=== PATIENT | female | born 1950 | race Caucasian/White ===

== ENCOUNTER 2016-05-10 13:53 | Inpatient (IN) | payer OTHER ==
[~2016-05-10] VITALS: Ht 162.6 cm; Wt 85.5 kg
--- NOTE | 2016-05-10 14:14 | ED GENERAL ADULT ---
History of Present Illness General Chief Complaint: Neuro Symptoms/ Deficit Stated Complaint: BIBA FOR ?STROKE ALERT Source: patient Exam Limitations: no limitations Vital Signs & Intake/Output Vital Signs & Intake/Output Vital Signs Date Time Temp Pulse Resp B/P Pulse O2 O2 Flow FiO2 Ox Delivery Rate 05/10 1747 97.3 95 18 127/72 95 Nasal 2.0L Cannula 05/10 1543 98.7 97 20 114/62 96 Nasal 2.0L Cannula 05/10 1354 98.1 108 18 136/87 92 Nasal 2.0L Cannula Allergies Coded Allergies: aspirin (RASH ALL OVER, RINGING IN THE EARS 05/10/16) erythromycin base (RASH ALL OVER 05/10/16) melon (HANDS SWELL, ITCH, THROAT ITCHES 05/10/16) Reconcile Medications Albuterol Sulfate (Proair Hfa) 90 MCG HFA.AER.AD 2 PUF INH PRN ASTHMA ( Reported) Cholecalciferol (Vitamin D3) (Vitamin D) 2,000 UNIT CAPSULE 1 CAP PO DAILY SUPPLEMENT (Reported) Citalopram Hydrobromide (Citalopram HBr) 20 MG TABLET 1 TAB PO QPM MENTAL HEALTH (Reported) Cyanocobalamin (Vitamin B-12) 1,000 MCG TABLET 1 TAB PO DAILY SUPPLEMENT ( Reported) Ezetimibe (Zetia) 10 MG TABLET 1 TAB PO QAM CHOLESTEROL (Reported) Losartan Potassium 50 MG TABLET 1 TAB PO QAM HTN (Reported) Metformin HCl 1,000 MG TABLET 1 TAB PO BID DM (Reported) Montelukast Sodium 10 MG TABLET 1 TAB PO DAILY ASTHMA/ALLERGIES (Reported) Multivitamin (Multi-Day Vitamins) 1 EACH TABLET 1 TAB PO DAILY SUPPLEMENT ( Reported) Pantoprazole Sodium 40 MG TABLET.DR 1 TAB PO DAILY AC GI (Reported) Triage Note: BROUGHT IN BY AMBULANCE WITH DIFFICULTY SPEAKING WHILE AT WORK APPROXIMATELY 45 MIN AGO. PT'S SYMPTOMS ARE IMPROVING. Triage Nurses Notes Reviewed? yes Onset: Abrupt Duration: minute(s): Timing: single episode today HPI: 05/10/16 2;10 PM 65-year-old female presents to the emergency department for sudden onset of altered mental status. The patient states that she had lunch earlier today, approximately 45 minutes prior to arrival she had a sudden onset of difficulty speaking and confusion. She says gradually over the last 20 minutes her symptoms have resolved. The onset of the symptoms was abrupt, the duration was a proximally 45 minutes prior to arrival, the severity is significant as her symptoms required to come to the emergency department by ambulance. Now in the emergency department she is awake alert and oriented 3. 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 A cervical fusion. On physical examination she is awake alert oriented 3. She does have some slight right FACIAL weakness. 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 The onset of the symptoms were abrupt, the duration was 45 minutes prior to arrival, the severity was significant as her symptoms required her to come to the emergency department for care. Past History Travel History Traveled to [facility] past 21 day No Medical History Any Pertinent Medical History? see below for history Neurological: ELY'S syndrome Musculoskeletal: CERVICAL DISEASE Endocrine: diabetes Influenza Vaccine: 12/26/07 Surgical History Surgical History: CERVICAL FUSION Psychosocial History Who do you live with Spouse What is your primary language Telugu Family History Hx Contributory? No Review of Systems Review of Systems Constitutional: Denies: fever. EENTM: Denies: visual changes. Respiratory: Denies: short of breath. Cardiovascular: Denies: chest pain. GI: Denies: abdominal pain. Genitourinary: Reports: no symptoms. Musculoskeletal: Reports: no symptoms. Skin: Reports: no symptoms. Neurological/Psychological: Reports: see HPI. Hematologic/Endocrine: Reports: see HPI. Physical Exam Physical Exam General Appearance: alert, awake, anxious, mild distress Head: atraumatic, normal appearance Eyes: Right: other (DEVIATES MEDIALLY-CHRONIC). Ears, Nose, Throat: normal pharynx Neck: normal inspection, supple, full range of motion Respiratory: normal breath sounds, chest non-tender, no respiratory distress Cardiovascular: regular rate/rhythm Peripheral Pulses: 4+ radial (R), 4+ radial (L) Gastrointestinal: soft, non-tender Back: normal range of motion Extremities: no edema Neurologic/Psych: awake, alert, oriented x 3, SLIGHT RIGHT FACIAL DROOP, RIGHT EYE DEVIATES MEDIALLY. Skin: intact, normal color, warm/dry Core Measures ACS in differential dx? No CVA/TIA Diagnosis: Yes NIH Stroke Scale: Total 3 Dt/Tm Last Known Well: Yes Date Last Known Well: 05/10/16 Neurological S/S of CVA: Difficulty Speaking Symptom start date: 05/10/16 Reason tPA not ordered: Medication Refused (PATIENT SYMPTOMS RESOLVED) Severe Sepsis Present: No Septic Shock Present: No Progress Differential Diagnoses I considered the following diagnoses in my evaluation of the patient: CVA, TIA, carotid dissection, hypoglycemia Plan of Care: Orders Procedure Date/time Status Heart Healthy Diet 05/11 B Active LIPID PANEL 05/11 0600 Active CBC WITHOUT DIFFERENTIAL 05/11 0600 Active BASIC ELECTROLYTES PLUS BUN&CR 05/11 0600 Active Heart Healthy Diet 05/10 D Complete Vital Signs 05/10 2040 Active Teach/Educate 05/10 2039 Active Nutritional Intake, Monitor 05/10 2039 Active Isolation 05/10 2039 Active Intake & Output 05/10 2039 Active Patient Care Conference 05/10 2039 Active Activity/Ambulation 05/10 204 Active Pathway - chart 05/10 1727 Active Patient Data 05/10 1556 Active Intake & Output 05/10 1544 Complete EKG 05/10 1531 Active Admit to inpatient 05/10 1527 Active Vital Signs 05/10 1527 Active Code Status 05/10 1527 Active NIH Stroke Scale 05/10 1441 Active Weight 05/10 1439 Active TROPONIN LEVEL 05/10 1408 Complete COMPREHENSIVE METABOLIC PANEL 05/10 1408 Complete CBC WITHOUT DIFFERENTIAL 05/10 1408 Complete AY-[id number] DOPPLER 05/10 UNK Active SWALLOW EVALUATION 05/10 UNK Active PT Evaluate & Treat 05/10 UNK Active House Staff 05/10 UNK Active Occupational Tx Eval & Treat 05/10 UNK Active VTE Mechanical Prophylaxis 05/10 UNK Active Ismael Coma Scale 05/10 UNK Active FingerStick- Glucose 05/10 UNK Active MRI-HEAD W/O ELANA 05/10 UNK Active ECHOCARDIOGRAM 05/10 UNK Active Current Medications Sig/Allan Start time Last Medication Dose Stop Time Status Admin Atorvastatin Calcium 40 MG 1700 05/11 1700 AC (Lipitor) Albuterol Sulfate 2 PUF DAILY 05/11 1000 AC (Ventolin) Cholecalciferol 1,000 IU DAILY 05/11 1000 AC (Vitamin D) Cyanocobalamin 1,000 MCG DAILY 05/11 1000 AC (Vitamin B12) Enoxaparin Sodium 40 MG DAILY 05/11 1000 CAN (Lovenox) Omeprazole 40 MG DAILY AC 05/11 0700 AC (Prilosec) Insulin Human Regular 0 TIDAC/HS 05/10 2100 AC (Novolin R Inj) Laboratory Tests 05/10/16 1443: Anion Gap 18 H, Estimated GFR 22 L, BUN/Creatinine Ratio 15.9, Glucose 138 H, Calcium 9.9, Total Bilirubin 0.4, AST 36, ALT 44, Alkaline Phosphatase 83, Troponin I < 0.01, Total Protein 7.4, Albumin 4.3, Globulin 3.1, Albumin/ Globulin Ratio 1.4, CBC w Diff NO MAN DIFF REQ, RBC 4.16 L, MCV 88.1, MCH 29.6, RDW 13.8, MPV 8.5, Gran % 48.8, Lymphocytes % 33.6, Monocytes % 11.1 H, Eosinophils % 5.3 H, Basophils % 1.2, Absolute Granulocytes 3.5, Absolute Lymphocytes 2.4, Absolute Monocytes 0.8 H, Absolute Eosinophils 0.4, Absolute Basophils 0.1, PUBS MCHC 33.6 Initial ED EKG: NSR, nonspecific ST T wave chg Departure Departure Disposition: STILL A PATIENT Condition: Stable Clinical Impression Primary Impression: TIA (transient ischemic attack) Referrals: LAYA WILD MD (PCP/Family) Departure Forms: Customer Survey General Discharge Information Comments Head CT negative PATIENT: SALAS CHEN PRESENT AGE: 65 PATIENT ACCOUNT NO: [id number] : 49 LOCATION: [facility] ORDERING PHYSICIAN: LATASHA ALBRECHT DO SERVICE DATE: 05/10/16 EXAM TYPE: CAT - CT HEAD WO IV CONTRAST EXAMINATION: CT HEAD WITHOUT CONTRAST CLINICAL INFORMATION: TIA versus CVA. COMPARISON: None TECHNIQUE: Contiguous axial imaging was performed from the skull base to vertex without intravenous administration of contrast. DLP: 601 mGy-cm FINDINGS: There is no evidence of acute intracranial hemorrhage or territorial infarction. No abnormal mass effect or midline shift is seen. Gerber to white matter differentiation is well preserved. No extra-axial fluid collections are identified. The ventricles are normal in size. There is moderate atherosclerotic calcification of the distal internal carotid arteries. There is mild decrease in periventricular deep white matter attenuation consistent with mild small vessel ischemic changes. The osseous structures and soft tissues are normal. The mastoid air cells and visualized portions of the paranasal sinuses are well aerated. IMPRESSION: Mild small vessel ischemic changes without evidence of an acute intracranial pathology. DICTATED BY: TERRANCE SCOTT MD DATE/TIME DICTATED:05/10/161440 TAX ACCOUNTANT:JOYCELYN DATE/TIME TRANSCRIBED:05/10/161440 CONFIDENTIAL, DO NOT COPY WITHOUT APPROPRIATE AUTHORIZATION. <Electronically signed in Other Vendor System> SIGNED BY: TERRANCE SCOTT MD 1450 Upon reevaluation the patient was essentially back to baseline. She had no aphasia. Speaking normally. No weakness. She still did have slight right facial droop. It is questionable whether this is no. The risks and benefits were reviewed for TPA with the patient. The patient and family understood the risks. The patient declined treatment, based on the fact that her deficit is essentially resolved. She will be admitted to the telemetry unit. Admission Note Spoke With: KELLIE PEOPLES MD Documentation of Exam: Documentation of any treatments & extenuating circumstances including Concerns Regarding Discharge (functional status, medication knowledge or non-compliance, living conditions, etc.) that warrant an admission rather than observation: [The patient needs admission for telemetry monitoring, neuro checks every 6 hours, neurology consultation-I spoke with Dr. Perez agrees with plan and will see patient,] Critical Care Note Critical Care Note Critical Care Time: 30-74 min Comments: 05/10/16 The patient had initially had inability to speak followed by mild expressive aphasia, now all her symptoms have essentially resolved. She is speaking in full sentences. She has no dysarthria positive gag reflex she has a history of the right eye deviation. It is questionable whether her right facial droop is old or new. I discussed the risks of TPA with the patient and the family. They of the opinion that because her symptoms have resolved almost entirely that they are deferring TPA as there is a risk of major bleeding. I agree with the patient and family's decision. Shared decision-making was utilized in the care of this patient. She is being admitted to the telemetry service.
--- NOTE | 2016-05-10 14:39 | NUR ---
PT SEEN BY DR ALBRECHT ON ARRIVAL, DR ALBRECHT DETERMINED PT IS NOT A STROKE ALERT DUE TO SYMPTOMS RESOLVING. PT TO/FROM CT ON STRETCHER, ALERT AND ORIENTED, SPEAKING APPROPRIATELY IN SHORT PHRASES, ABLE TO STAND AND WALK TO/FROM CT TABLE INDEPENDENTLY.
--- NOTE | 2016-05-10 14:46 | NUR ---
LABS DRAWN AND SENT
--- NOTE | 2016-05-10 14:50 | CT SCAN REPORT ---
EXAMINATION: CT HEAD WITHOUT CONTRAST CLINICAL INFORMATION: TIA versus CVA. COMPARISON: None TECHNIQUE: Contiguous axial imaging was performed from the skull base to vertex without intravenous administration of contrast. DLP: 601 mGy-cm FINDINGS: There is no evidence of acute intracranial hemorrhage or territorial infarction. No abnormal mass effect or midline shift is seen. Gerber to white matter differentiation is well preserved. No extra-axial fluid collections are identified. The ventricles are normal in size. There is moderate atherosclerotic calcification of the distal internal carotid arteries. There is mild decrease in periventricular deep white matter attenuation consistent with mild small vessel ischemic changes. The osseous structures and soft tissues are normal. The mastoid air cells and visualized portions of the paranasal sinuses are well aerated. IMPRESSION: Mild small vessel ischemic changes without evidence of an acute intracranial pathology.
[2016-05-10 14:51] LABS: ABSOLUTE BASOPHIL COUNT 0.1 /CUMM (0.0-0.2); ABSOLUTE EOSINOPHIL COUNT 0.4 /CUMM (0.0-0.7); ABSOLUTE GRANULOCYTE CT 3.5 /CUMM (1.4-6.5); ABSOLUTE LYMPH COUNT 2.4 /CUMM (1.2-3.4); ABSOLUTE MONOCYTE COUNT 0.8 /CUMM (0.10-0.60); BASOPHIL % 1.2 % (0.0-2.0); EOSINOPHIL % 5.3 % (0-5); GRANULOCYTE % 48.8 % (42.2-75.2); HEMATOCRIT 36.6 % (37-47); MEAN CORPUSCULAR HGB 29.6 PG (27.0-31.0); MEAN CORPUSCULAR HGB CONC 33.6 G/DL (33.0-37.0); MEAN CORPUSCULAR VOLUME 88.1 FL (81.0-99.0); MEAN PLATELET VOLUME 8.5 FL (7.4-10.4); PLATELET COUNT 311 /CUMM (130-400); RBC DISTRIBUTION WIDTH 13.8 % (11.5-14.5); RED BLOOD CELL CT 4.16 /CUMM (4.20-5.40); WHITE BLOOD CELL COUNT 7.2 /CUMM (4.8-10.8)
--- NOTE | 2016-05-10 14:54 | RADIOLOGY REPORT ---
EXAMINATION: XR PORTABLE CHEST CLINICAL INFORMATION: Altered mental status. COMPARISON: Chest x-ray 06/20/2012 TECHNIQUE: Portable AP view of the chest was obtained. 2:10 PM FINDINGS: Inspiratory effort is low. No significant abnormality is noted involving the heart, lungs, mediastinum, bony thorax or soft tissues. Orthopedic plate and screw at lower cervical spine IMPRESSION: No acute abnormality of the chest.
--- NOTE | 2016-05-10 15:01 | NUR ---
DR ALBRECHT AT BEDSIDE TO DISCUSS RESULTS/PLAN.
--- NOTE | 2016-05-10 15:14 | NUR ---
PER DR ALBRECHT PT'S SYMPTOMS ARE RESOLVING AND PT WILL NOT RECIEVE TPA AT THIS TIME.
--- NOTE | 2016-05-10 15:43 | NUR ---
PT MEDICATED PER EMAR--DR ALBRECHT REPORTS HE DID A BEDSIDE SWALLOW EVAL WHICH THE PT PASSED. PT DENIES ANY COMPLAINTS.
--- NOTE | 2016-05-10 15:45 | NUR ---
ATTENDING AT BEDSIDE
[2016-05-10] MEDS ORDERED: ZETIA10 M1 PO (15:59)
[2016-05-10] MEDS ORDERED: PROAIR HFA8.5 GM INH (16:00)
[2016-05-10] MEDS ORDERED: CITALOPRAM HBR20 MG PO (16:00)
[2016-05-10] MEDS ORDERED: LOSARTAN POTASS50 M1 PO (16:00)
[2016-05-10] MEDS ORDERED: MONTELUKAST SOD10 M1 PO (16:01)
[2016-05-10] MEDS ORDERED: METFORMIN HCL1000 M1 PO (16:01)
[2016-05-10] MEDS ORDERED: PANTOPRAZOLE SO40 M1 PO (16:02)
[2016-05-10] MEDS ORDERED: MULTI-DAY VITA1 EACH PO (16:03)
[2016-05-10] MEDS ORDERED: VITAMIN D2000 UNIT PO (16:03)
[2016-05-10] MEDS ORDERED: VITAMIN B-121000 MC3 PO (16:03)
--- NOTE | 2016-05-10 16:18 | Admission Certification ---
Admission Certification Certification Statement - As attending physician, I certify that at the time of - admission, based on clinical presentation, severity of - symptoms, need for further diagnostic testing and - therapeutic interventions, and risk of adverse outcomes - without in-hospital treatment, in my clinical assessment, - this patient requires an acute hospital stay for a minimum - of two nights or longer. I have also considered psychsocial - factors such as support system, advanced age, financial - issues, cognitive issues, and failed out-patient treatments, - past re-admission history, safety of patient, and lack of - compliance as applicable. Specific rationale supporting this admission is: Acute aphasia
--- NOTE | 2016-05-10 16:32 | PN- Att Addend ---
Attending Addendum Attending Brief Note 65F PMH HTN, HLD, T2DM, NSAID-induced CKD stage IIIB, recent cervical spinal fusion surgery with resulting right sided Jam's syndrome presenting with acute onset of aphasia. Patient was at work when she suddenly found that she could not speak. She knew what she wanted to say but could not get the words out. She also was typing at the time and could not type. She denies blurry vision, headache, confusion, extremity weakness, or balance or sensation problems. Aphasia lasted an hour and has completely resolved. Family history of stroke in her mother at age 50. Has allergy to ASA. Was offered tPA by ED but refused due to risk of bleed. Given Dipyrimadole in ED. Currently asymptomatic. 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 1. TIA 2. Aphasia 3. Jam's syndrome 4. T2DM 5. Hyperlipidemia 6. Essential hypertension Plan - Admit to telemetry - ASA allergic, so will start Plavix 75mg daily - Passed bedside swallow evaluation - Start Lipitor 40mg. Has a history of myalgia after taking Zocor, will monitor for symptoms - Neurology consult - MRI without contrast of the head - Carotid doppler - Echocardiogram - PT/OT - Continue home medications - Goal BP <140/90 - ALPS for DVT PPx
--- NOTE | 2016-05-10 16:32 | NUR ---
PT REPORTS SYMPTOMS ARE ESSENTIALLY RESOLVED AND DENIES ANY NEW OR WORSENING COMPLAINTS. PT IS ALERT, LAUGHING AND TALKING WITH FAMILY, AWAITING BED ASSIGNMENT.
--- NOTE | 2016-05-10 16:32 | History & Physical ---
VANESA BHANDARI MD 05/10/16 8551: General Information and HPI MD Statement: I have seen and personally examined SALAS CHEN and documented this H&P. The patient is a 65 year old F who presented with a patient stated chief complaint of [garbled speech]. Source of Information: patient Exam Limitations: no limitations History of Present Illness: 65-year-old female with PMH of HTN,HLD,right sided Jam due to surgical procedure, NSAID induced kidney injury, was brought in by ambulance for stroke alert. She was in her normal state of health up until around 1pm today when she came back to work from lunch. She had difficulty articulating her speech and what she said "did not make sense". 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 The pharmacist she was talking to suspected that she was having a stroke because she was not responding to her questions. She also had problem typing and thought the computer/internet was not working as she could not log on. She was not typing what she intended. Ambulance was called and she was brought to the ED. Her symptoms resolved after about one hour since the onset. As she is allergic to aspirin, aspirin was not given. 1 time 25 mg persantine was given instead. Pt refused tpa due to bleeding risk. Pt was told by Dr. Cat to not have any contrast given her kidney functions. She was taking a lot of NSAIDs due to neck pain, and followed up with Dr. Cat for Cr of 1.7. She has since had disc surgery to stabilize C4-C7. Allergies/Medications Allergies: Coded Allergies: aspirin (RASH ALL OVER, RINGING IN THE EARS 05/10/16) erythromycin base (RASH ALL OVER 05/10/16) melon (HANDS SWELL, ITCH, THROAT ITCHES 05/10/16) Home Med list Albuterol Sulfate (Proair Hfa) 90 MCG HFA.AER.AD 2 PUF INH PRN ASTHMA ( Reported) Cholecalciferol (Vitamin D3) (Vitamin D) 2,000 UNIT CAPSULE 1 CAP PO DAILY SUPPLEMENT (Reported) Citalopram Hydrobromide (Citalopram HBr) 20 MG TABLET 1 TAB PO QPM MENTAL HEALTH (Reported) Cyanocobalamin (Vitamin B-12) 1,000 MCG TABLET 1 TAB PO DAILY SUPPLEMENT ( Reported) Ezetimibe (Zetia) 10 MG TABLET 1 TAB PO QAM CHOLESTEROL (Reported) Losartan Potassium 50 MG TABLET 1 TAB PO QAM HTN (Reported) Metformin HCl 1,000 MG TABLET 1 TAB PO BID DM (Reported) Montelukast Sodium 10 MG TABLET 1 TAB PO DAILY ASTHMA/ALLERGIES (Reported) Multivitamin (Multi-Day Vitamins) 1 EACH TABLET 1 TAB PO DAILY SUPPLEMENT ( Reported) Pantoprazole Sodium 40 MG TABLET.DR 1 TAB PO DAILY AC GI (Reported) Past History Travel History Traveled to [place] past 21 day No Medical History Neurological: NONE EENT: NONE Cardiovascular: hypertension, hyperlipidemia Respiratory: asthma Gastrointestinal: NONE Hepatic: NONE Renal: chronic kidney disease Musculoskeletal: fracture Psychiatric: NONE Endocrine: diabetes Blood Disorders: NONE Cancer(s): NONE Influenza Vaccine: 12/26/07 Surgical History Surgical History: unobtainable Past Family/Social History Family History Relations & Conditions if any MOTHER FH: stroke, Onset: 50-60. Psychosocial History Where do you live? Home Primary Language: German Functional Ability ADLs Independent: dressing, eating, toileting, bathing. Ambulation: independent IADLs Independent: shopping, housework, finances, food prep, telephone, transportation , medication admin. 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 EENTM: Denies: visual changes. Cardiovascular: Denies: chest pain, palpitations. Respiratory: Denies: cough, short of breath. GI: Denies: abdominal pain, bloating, constipation, diarrhea. Genitourinary: Denies: dysuria. Neurological/Psychological: Denies: numbness, paresthesia, tingling. Exam & Diagnostic Data Last 24 Hrs of Vital Signs/I&O Vital Signs Date Time Temp Pulse Resp B/P Pulse O2 O2 Flow FiO2 Ox Delivery Rate 05/10 1543 98.7 97 20 114/62 96 Nasal 2.0L Cannula 05/10 1354 98.1 108 18 136/87 92 Nasal 2.0L Cannula Intake & Output 05/10 1600 05/10 0800 05/10 0000 Intake Total 15 Output Total Balance 15 Intake, Oral 15 Patient 83.7 kg Weight Physical Exam General Appearance Alert, Oriented X3, Cooperative, No Acute Distress Skin No Significant Lesion HEENT Atraumatic, EOMI, right pupil constricted and nonreactive Neck Supple, +2 Carotid Pulse wo Bruit, No LAD Cardiovascular Normal S1, Normal S2, No Murmurs, Gallops, Rubs, tachycardic Lungs Clear to Auscultation, Normal Air Movement Abdomen Normal Bowel Sounds, Soft, No Tenderness Neurological Normal Speech, Strength at 5/5 X4 Ext, Normal Tone, Sensation Intact, Cranial Nerves 3-12 NL, Reflexes 2+ Extremities No Cyanosis, No Edema, Normal Pulses, No Tenderness/Swelling Vascular Normal Pulses, Pulses Symmetrical Last 24 Hrs of Labs/Mik: Laboratory Tests 05/10/16 1443: Anion Gap 18 H, Estimated GFR 22 L, BUN/Creatinine Ratio 15.9, Glucose 138 H, Calcium 9.9, Total Bilirubin 0.4, AST 36, ALT 44, Alkaline Phosphatase 83, Troponin I < 0.01, Total Protein 7.4, Albumin 4.3, Globulin 3.1, Albumin/ Globulin Ratio 1.4, CBC w Diff NO MAN DIFF REQ, RBC 4.16 L, MCV 88.1, MCH 29.6, RDW 13.8, MPV 8.5, Gran % 48.8, Lymphocytes % 33.6, Monocytes % 11.1 H, Eosinophils % 5.3 H, Basophils % 1.2, Absolute Granulocytes 3.5, Absolute Lymphocytes 2.4, Absolute Monocytes 0.8 H, Absolute Eosinophils 0.4, Absolute Basophils 0.1, PUBS MCHC 33.6 Diagnostic Data CXR Results IMPRESSION: No acute abnormality of the chest. Other Results CT head IMPRESSION: Mild small vessel ischemic changes without evidence of an acute intracranial pathology. Assessment/Plan Assessment: 65-year-old female with PMH of HTN,HLD,right sided Jam due to surgical procedure, NSAID induced kidney injury, was brought in by ambulance for aphasia that lasted 1 hour. Problem list: # TIA # NSAID induced kidney injury # Hypertension # Hyperlipidemia # DM type II # Asthma # TIA - Given 1 x 25 mg persantine in ED - Allergic to ASA - Refused tpa due to bleeding risk * Neuro consult for am * Start plavix 75 daily * Start lipitor 40 daily, watch for myalgia * Lipid panel in am * Follow hba1c * MRI without contrast in am * Carotid doppler * Echo * PT/OT # NSAID induced kidney injury - BUN/cr on admission 35/2.2 * Courtesy call to Dr. Cat in am * Avoid contrast/NSAIDs # Hypertension * HOLD losartan 50 mg daily # Hyperlipidemia * Hold home ezetimibe * Start lipitor 40, watch for myalgia # DM type II * Hold home metformin * Accucheck and insulin ss # Asthma * albuterol prn * Singulair 10 daily # Continue home meds * Multivitamin, Vit D3, Vit B12 * Citalopram 20 qpm * Pantoprazle 40 daily Diet: heart healthy DVT ppx: alps FULL CODE As Ranked By This Provider Problem List: 1. TIA (transient ischemic attack) Core Measures/Miscellaneous Acute Coronary Syndrome ACS Diagnosis: No Cerebrovascular Accident CVA/TIA Diagnosis: Yes Congestive Heart Failure CHF Diagnosis: No Venous Thromboembolism VTE Risk Factors: Age > 40 VTE Prophylaxis Ordered Inpt: Mechanical (ALPS/TEDS) No Mech VTE prophylaxis d/t: No contraindications No VTE Pharm Prophylaxis d/t: No contraindications VTE Diagnosis: No VTE Type: NONE VTE Confirmed by (Test): NONE Severe Sepsis Severe Sepsis Present: No Septic Shock Septic Shock Present: No Miscellaneous Documentation Attending Case Discussed With: KELLIE PEOPLES MD Primary Care Physician: JUNITO MESA,LAYA Patient sees these Specialists Dr. Cat nephrology Dr. Hilton at [place] Dr. Sagastume for thyroid biopsy Level of Patient Care: Telemetry BERNARD CARR 05/10/161938: Resident Review Statement Resident Statement: examined this patient, discussed with leadership intern, agreed with leadership intern Other Findings: is a 65yo women with PMHx. significant for NIDDM, hyperlipidemia and hypertension, jam syndrome 2/2 cervical fusion presented to ed with c/o of dificullt speech. Today during lunch was attempting to communicate but she couldn't say the work correctly, he words was incoherent. She was unable to form sentences and when words came out they came out garbled and incoherent. Episode last for about 45 mints which resolved completely at ED. She denies any other deficits with the exception of noting that during lunch she had knocked over her coffee twice with her right hand. She denies any significant lightheadedness and only had a mild headache, no chest pain, plapitation. Assessment: -TIA -Hx. of T2DM -Hx. of HTN -Hx. of HLD Plan: -Admitt to telemetry -Neurology consult -MRI head WO contrast -Plavix, statin -Aim BP<140/90 -PT/OT DVT ppx alps Full code
--- NOTE | 2016-05-10 17:04 | NUR ---
HOUSE STAFF AT BEDSIDE
--- NOTE | 2016-05-10 17:23 | NUR ---
PT HAS BED ASSIGNMENT 174-2
--- NOTE | 2016-05-10 17:47 | NUR ---
PT CONTS TO REPORT NO NEW OR WORSENED SYMPTOMS. NO COMPLAINTS AT THIS TIME.
--- NOTE | 2016-05-10 19:46 | NUR ---
NURSING ADMISSION NOTE; A+OX3. SLURRED SPEECH RESOLVED. NIH SCORE 0. PT WITH R) FACIAL DROOP AND UNEQUAL PUPILS AT BASELINE FROM PRIOR SURGERY. RESTING COMFORTABLY.
--- NOTE | 2016-05-10 19:52 | Cons- Neurology ---
General Information and HPI Consulting Request Date of Consult: 05/10/16 Requested By: KELLIE PEOPLES MD Reason for Consult: Transient speech difficulties Source of Information: patient, family Exam Limitations: no limitations History of Present Illness: This is a pleasant 65 year old right handed woman with known NIDDM, hyperlipidemia and hypertension, who earlier today, after lunch was attempting to communicate with someone on the phone, when she found herself unable to speak properly. She was unable to form sentences and when words came out they came out garbled and incoherent. This went on for approximately 1 hour and by the time she was evaluated in the ER completely resolved. She denies any other deficits with the exception of noting that during lunch she had knocked over her coffee twice with her right hand. She denies any significant lightheadedness and only had a mild headache. Allergies/Medications Allergies: Coded Allergies: aspirin (RASH ALL OVER, RINGING IN THE EARS 05/10/16) erythromycin base (RASH ALL OVER 05/10/16) melon (HANDS SWELL, ITCH, THROAT ITCHES 05/10/16) Home Med List: Albuterol Sulfate (Proair Hfa) 90 MCG HFA.AER.AD 2 PUF INH PRN ASTHMA ( Reported) Cholecalciferol (Vitamin D3) (Vitamin D) 2,000 UNIT CAPSULE 1 CAP PO DAILY SUPPLEMENT (Reported) Citalopram Hydrobromide (Citalopram HBr) 20 MG TABLET 1 TAB PO QPM MENTAL HEALTH (Reported) Cyanocobalamin (Vitamin B-12) 1,000 MCG TABLET 1 TAB PO DAILY SUPPLEMENT ( Reported) Ezetimibe (Zetia) 10 MG TABLET 1 TAB PO QAM CHOLESTEROL (Reported) Losartan Potassium 50 MG TABLET 1 TAB PO QAM HTN (Reported) Metformin HCl 1,000 MG TABLET 1 TAB PO BID DM (Reported) Montelukast Sodium 10 MG TABLET 1 TAB PO DAILY ASTHMA/ALLERGIES (Reported) Multivitamin (Multi-Day Vitamins) 1 EACH TABLET 1 TAB PO DAILY SUPPLEMENT ( Reported) Pantoprazole Sodium 40 MG TABLET.DR 1 TAB PO DAILY AC GI (Reported) Current Medications: Current Medications Sig/Allan Start time Last Medication Dose Route Stop Time Status Admin Albuterol Sulfate 2 PUF DAILY 05/11 1000 AC INH Atorvastatin Calcium 40 MG 1700 05/11 1700 AC PO Cholecalciferol 1,000 IU DAILY 05/11 1000 AC PO Citalopram 20 MG QPM 05/10 2200 AC Hydrobromide PO Clopidogrel Bisulfate 75 MG DAILY 05/10 1804 AC PO Cyanocobalamin 1,000 MCG DAILY 05/11 1000 AC PO Dipyridamole 25 MG STAT STA 05/10 1526 DC 05/10 PO 05/10 1527 1543 Enoxaparin Sodium 40 MG DAILY 05/11 1000 CAN SC Insulin Human Regular 0 TIDAC/HS 05/10 2100 AC SC Omeprazole 40 MG DAILY AC 05/11 0700 AC PO Review of Systems Review of Systems: Is negative to the 10-point complete review of systems. Past History Travel History Traveled to [place] past 21 day No Medical History Neurological: NONE EENT: NONE Cardiovascular: hypertension, hyperlipidemia Respiratory: asthma Gastrointestinal: NONE Hepatic: NONE Renal: chronic kidney disease Musculoskeletal: fracture Psychiatric: NONE Endocrine: diabetes Blood Disorders: NONE Cancer(s): NONE Surgical History Surgical History: laminectomy, spinal fusion Family History Relations & Conditions If Any: MOTHER FH: stroke, Onset: 50-60. Psychosocial History Where Do You Live? Home Primary Language: German Functional Ability ADLs Independent: dressing, eating, toileting, bathing. Ambulation: independent IADLs Independent: shopping, housework, finances, food prep, telephone, transportation , medication admin. 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 No distress. Attention and concentration intact. Fluent, comprehends, can repeat and can name properly. S1 and S2 normal, RRR. EOMI, ANAI, no nystagmus, face symmetric. Tongue midline, uvula raises in midline. Hearing normal. V1-V3 sensation normal. VF intact. Strength is intact 5/5 without drift bilaterally. Sensory exam is normal to all modalities of sensation. FNF is normal. Reflexes are hyperreflexive. Toes are downgoing. Gait is stable. Last 48 Hours of Lab Results: Laboratory Tests 05/10 1443 Chemistry Sodium (137 - 145 mmol/L) 142 Potassium (3.5 - 5.1 mmol/L) 4.7 Chloride (98 - 107 mmol/L) 106 Carbon Dioxide (22 - 30 mmol/L) 18 L Anion Gap (5 - 16) 18 H BUN (7 - 17 mg/dL) 35 H Creatinine (0.5 - 1.0 mg/dL) 2.2 H Estimated GFR (>60 ml/min) 22 L BUN/Creatinine Ratio (7 - 25 %) 15.9 Glucose (65 - 99 mg/dL) 138 H Calcium (8.4 - 10.2 mg/dL) 9.9 Total Bilirubin (0.2 - 1.3 mg/dL) 0.4 AST (14 - 36 U/L) 36 ALT (9 - 52 U/L) 44 Alkaline Phosphatase (<127 U/L) 83 Troponin I (< 0.11 ng/ml) < 0.01 Total Protein (6.3 - 8.2 g/dL) 7.4 Albumin (3.5 - 5.0 g/dL) 4.3 Globulin (1.9 - 4.2 gm/dL) 3.1 Albumin/Globulin Ratio (1.1 - 2.2 %) 1.4 Hematology CBC w Diff NO MAN DIFF REQ WBC (4.8 - 10.8 /CUMM) 7.2 RBC (4.20 - 5.40 /CUMM) 4.16 L Hgb (12.0 - 16.0 G/DL) 12.3 Hct (37 - 47 %) 36.6 L MCV (81.0 - 99.0 FL) 88.1 MCH (27.0 - 31.0 PG) 29.6 RDW (11.5 - 14.5 %) 13.8 Plt Count (130 - 400 /CUMM) 311 MPV (7.4 - 10.4 FL) 8.5 Gran % (42.2 - 75.2 %) 48.8 Lymphocytes % (20.5 - 51.1 %) 33.6 Monocytes % (1.7 - 9.3 %) 11.1 H Eosinophils % (0 - 5 %) 5.3 H Basophils % (0.0 - 2.0 %) 1.2 Absolute Granulocytes (1.4 - 6.5 /CUMM) 3.5 Absolute Lymphocytes (1.2 - 3.4 /CUMM) 2.4 Absolute Monocytes (0.10 - 0.60 /CUMM) 0.8 H Absolute Eosinophils (0.0 - 0.7 /CUMM) 0.4 Absolute Basophils (0.0 - 0.2 /CUMM) 0.1 PUBS MCHC (33.0 - 37.0 G/DL) 33.6 Imaging/Other Studies: NCHCT was normal. Assessment/Plan Assessment: 65 year old woman with presentation of an aphasic TIA lasting an hour. She is now back to [facility]. Recommendations: 1. Echo and CD. 2. MRI and MRA of brain. 3. HbaA1c, lipids, TSH and B12. 4. Start ASA 81mg, and Lipitor 40mg. If BP elevated start Lisinopril 10mg. 5. PT assessment. 6. Heparin SC for DVT prophx. 7. Telemetry to rule out PAF. YC Consult Acknowledgment - Thank you for your consult request.
[2016-05-10 22:00] VITALS: BP 120/70
--- NOTE | 2016-05-11 06:40 | PN- Housestaff ---
See Addendum Subjective Follow-up For: TIA Tele-Events Since Last Visit: SR 80-100 No events Subjective: Pt seen and examined this morning. Did not have any complaints. She slept well. No neurological deficits remain. She did have decreased PO intake yesterday, probably causing her Cr to be elevated. Ordered 1 bag NS. Spoke to Dr. Cat who agrees with the plan. Getting kidney US to r/o obstruction. Pt can possibly be discharged home tomorrow if creatine improves or remain the same, from renal standpoint. MRI showed no acute change. Carotid doppler shows no stenosis. Will refer to Dr. Hylton as per pt's request for holter monitor and review echo results. Pt did have palpitations in the past, but not recently. Review of Systems Constitutional: Denies: chills, fever. EENTM: Denies: visual changes. Cardiovascular: Denies: chest pain, palpitations. Respiratory: Denies: cough, short of breath. Gastrointestinal: Denies: abdominal pain, bloating, constipation, diarrhea. Objective Last 24 Hrs of Vital Signs/I&O Vital Signs Date Time Temp Pulse Resp B/P Pulse O2 O2 Flow FiO2 Ox Delivery Rate 05/11 0829 97.6 90 20 118/70 95 Nasal 2.0L Cannula 05/10 2200 98.0 86 20 120/70 97 Nasal 2.0L Cannula 05/10 1747 97.3 95 18 127/72 95 Nasal 2.0L Cannula 05/10 1543 98.7 97 20 114/62 96 Nasal 2.0L Cannula Intake & Output 05/11 1600 05/11 0800 05/11 0000 Intake Total 200 100 Output Total Balance 200 100 Intake, Oral 200 100 Patient 84.028 kg 86.183 kg Weight Physical Exam General Appearance: Alert, Oriented X3, Cooperative, No Acute Distress Skin: No Significant Lesion HEENT: Atraumatic Neck: Supple Cardiovascular: Regular Rate, Normal S1, Normal S2, No Murmurs, Gallops, Rubs Lungs: Clear to Auscultation, Normal Air Movement Abdomen: Normal Bowel Sounds, Soft, No Tenderness Neurological: Normal Gait, Normal Speech, Strength at 5/5 X4 Ext, Normal Tone, Sensation Intact, Cranial Nerves 3-12 NL, Reflexes 2+ Extremities: No Edema Current Medications: Current Medications Sig/Allan Start time Last Medication Dose Route Stop Time Status Admin Albuterol Sulfate 2 PUF DAILY 05/11 1000 AC INH Atorvastatin Calcium 40 MG 1700 05/11 1700 AC PO Cholecalciferol 1,000 IU DAILY 05/11 1000 AC 05/11 PO 0919 Citalopram 20 MG QPM 05/10 2200 AC 05/10 Hydrobromide PO 2107 Clopidogrel Bisulfate 75 MG DAILY 05/10 1804 AC 05/11 PO 09 Cyanocobalamin 1,000 MCG DAILY 05/11 1000 AC 05/11 PO 0919 Dipyridamole 25 MG STAT STA 05/10 1526 DC 05/10 PO 05/10 1527 1543 Enoxaparin Sodium 40 MG DAILY 05/11 1000 CAN SC Insulin Human Regular 0 TIDAC/HS 05/10 2100 AC 05/11 SC 1304 Omeprazole 40 MG DAILY AC 05/11 0700 AC 05/11 PO 0613 Sodium Chloride 1,000 ML ONCE ONE 05/11 0945 AC 05/11 IV 05/11 1944 1305 Last 24 Hrs of Lab/Mik Results Last 24 Hrs of Labs/Mics: Laboratory Tests 05/11/16 1315: Fluid Urea Nitrogen Pending, Urine Osmolality Pending, Ur Random Creatinine Pending, Ur Random Sodium Pending, Ur Random Potassium Pending, Fraction Sodium Excret Pending 05/11/16 0625: Anion Gap 14, Estimated GFR 24 L, BUN/Creatinine Ratio 15.2, Serum Osmolality 303 H, Triglycerides 362 H, Cholesterol 166, LDL Cholesterol, Calc 67, HDL Cholesterol 27 L, Cholesterol/HDL Ratio 6 H, CBC w Diff NO MAN DIFF REQ, RBC 4.01 L, MCV 88.2, MCH 29.7, RDW 14.0, MPV 8.8, Gran % 38.4 L, Lymphocytes % 41.8, Monocytes % 11.8 H, Eosinophils % 6.6 H, Basophils % 1.4, Absolute Granulocytes 2.3, Absolute Lymphocytes 2.6, Absolute Monocytes 0.7 H, Absolute Eosinophils 0.4, Absolute Basophils 0.1, PUBS MCHC 33.6 05/10/16 1443: Anion Gap 18 H, Estimated GFR 22 L, BUN/Creatinine Ratio 15.9, Glucose 138 H, Calcium 9.9, Total Bilirubin 0.4, AST 36, ALT 44, Alkaline Phosphatase 83, Troponin I < 0.01, Total Protein 7.4, Albumin 4.3, Globulin 3.1, Albumin/ Globulin Ratio 1.4, CBC w Diff NO MAN DIFF REQ, RBC 4.16 L, MCV 88.1, MCH 29.6, RDW 13.8, MPV 8.5, Gran % 48.8, Lymphocytes % 33.6, Monocytes % 11.1 H, Eosinophils % 5.3 H, Basophils % 1.2, Absolute Granulocytes 3.5, Absolute Lymphocytes 2.4, Absolute Monocytes 0.8 H, Absolute Eosinophils 0.4, Absolute Basophils 0.1, PUBS MCHC 33.6 Assessment/Plan Assessment: 65-year-old female with PMH of HTN,HLD,right sided Jam due to surgical procedure, NSAID induced kidney injury, was brought in by ambulance for aphasia that lasted 1 hour. Problem list: # TIA # NSAID induced kidney injury, acute on chronic CKD # Hypertension # Hyperlipidemia # DM type II # Asthma # TIA - Given 1 x 25 mg persantine in Ed - Allergic to ASA - ringing ears and rash - Refused tpa due to bleeding risk * Neuro consulted * Continue plavix 75 daily * Continue lipitor 40 daily, watch for myalgia * Lipid panel : high TG * Follow hba1c * MRI without contrast: no acute change. chronic ischemic change. * Carotid doppler:possible stenosis, recommend MRA - will give d51/2ns at 75ml/ hr and NAC 600 bid X 3 doses starting 6pm in anticipation of possible MRA tomorrow, as per Dr. Cat verbal recc. * Echo: done, but report pending * PT/OT # NSAID induced kidney injury, acute on chronic ckd - BUN/cr on admission 35/2.2 * Dr Cat consulted * Avoid contrast/NSAIDs * Follow urine studies and kidney US # Hypertension * HOLD losartan 50 mg daily # Hyperlipidemia * Hold home ezetimibe * Start lipitor 40, watch for myalgia * Consider starting fibrate # DM type II * Hold home metformin * Accucheck and insulin ss # Asthma * albuterol prn * Singulair 10 daily # Continue home meds * Multivitamin, Vit D3, Vit B12 * Citalopram 20 qpm * Pantoprazole 40 daily Diet: heart healthy DVT ppx: alps FULL CODE Problem List: 1. TIA (transient ischemic attack) Pain Ratin Pain Location: none Pain Goal: Remain pain free Pain Plan: none Tomorrow's Labs & Rationales: bep for acute on chronic kidney disease DVT/Prophylaxis: mechanical
[2016-05-11 07:56] LABS: ABSOLUTE BASOPHIL COUNT 0.1 /CUMM (0.0-0.2); ABSOLUTE EOSINOPHIL COUNT 0.4 /CUMM (0.0-0.7); ABSOLUTE GRANULOCYTE CT 2.3 /CUMM (1.4-6.5); ABSOLUTE LYMPH COUNT 2.6 /CUMM (1.2-3.4); ABSOLUTE MONOCYTE COUNT 0.7 /CUMM (0.10-0.60); BASOPHIL % 1.4 % (0.0-2.0); EOSINOPHIL % 6.6 % (0-5); GRANULOCYTE % 38.4 % (42.2-75.2); HEMATOCRIT 35.4 % (37-47); MEAN CORPUSCULAR HGB 29.7 PG (27.0-31.0); MEAN CORPUSCULAR HGB CONC 33.6 G/DL (33.0-37.0); MEAN CORPUSCULAR VOLUME 88.2 FL (81.0-99.0); MEAN PLATELET VOLUME 8.8 FL (7.4-10.4); PLATELET COUNT 286 /CUMM (130-400); RED BLOOD CELL CT 4.01 /CUMM (4.20-5.40); WHITE BLOOD CELL COUNT 6.1 /CUMM (4.8-10.8)
[2016-05-11 08:29] VITALS: BP 118/70
--- NOTE | 2016-05-11 11:09 | MRI REPORT ---
EXAMINATION: MR BRAIN WITHOUT CONTRAST CLINICAL INFORMATION: Aphasia. TIA. COMPARISON: CT scan of the head 05/10/2016. TECHNIQUE: MRI of the brain without contrast was obtained using routine sequences. FINDINGS: No diffusion abnormalities are identified to suggest an acute or subacute infarct. No mass effect or midline shift is seen. The ventricles are normal in size. There are a few scattered foci of increased T2 and FLAIR signal in the periventricular white matter, most consistent with chronic microvascular ischemic changes. There are small lacunar infarcts in the basal ganglia and central bernie. No extra-axial fluid collections are seen. The cerebellum appears normal. No pathologic magnetic susceptibility artifact is identified on the gradient refocused acquisition. The craniovertebral junction, marrow signal, and midline structures are normal. The major intracranial flow-voids at the level of the [place] of [place] are preserved. There is hyperostosis frontalis interna. The dural venous sinus flow-voids are maintained. The mastoid air cells and paranasal sinuses are well-aerated. IMPRESSION: 1. There are no acute bleeds or infarcts. 2. There are sequelae of chronic microvascular ischemic disease and lacunar infarctions.
--- NOTE | 2016-05-11 11:25 | ULTRASOUND REPORT ---
EXAMINATION: BILATERAL DUPLEX CAROTID ULTRASOUND CLINICAL INDICATION: 65-year-old former cigarette smoker with a history of diabetes and hypertension with presenting with transient aphasia. Evaluate for a carotid artery stenosis. COMPARISON: MRI of the head performed on 05/11/2016. TECHNIQUE: Real-time ultrasound and Doppler techniques (integrating B-mode 2D vascular images, Doppler spectral analysis and color flow Doppler imaging) were utilized to interrogate the extracranial carotid and vertebral arteries bilaterally FINDINGS: On the RIGHT, there is extensive echogenic plaque with shadowing present at the carotid bifurcation. In the distal CCA, the peak systolic velocity is 72 cm/sec. In the proximal ICA, the peak systolic velocity is 92 cm/sec, and the end diastolic velocity is 25 cm/sec. In the distal ICA, the peak systolic velocity is 141 cm/sec, and the end diastolic velocity is 35 cm/sec. In the proximal ECA, the peak systolic velocity is 77 cm/sec. On the LEFT, there is moderate echogenic plaque which present at the carotid bifurcation. In the distal CCA, the peak systolic velocity is 88 cm/sec. In the proximal ICA, the peak systolic velocity is 77 cm/sec, and the end diastolic velocity is 23 cm/sec. In the proximal ECA, the peak systolic velocity is 97 cm/sec. The vertebral arteries show antegrade flow with normal waveforms bilaterally. IMPRESSION: 1. The proximal right internal carotid artery shows no hemodynamically significant (0-49%) stenosis. There may be a moderate stenosis more distally in the right internal carotid artery in the 50-79% range, though tortuosity can cause flow accelerations. In light of concern for a recent TIA, consider a MRA or CTA for further evaluation. 2. The left internal carotid artery shows no hemodynamically significant (0-49%) stenosis.
[2016-05-11] MEDS ORDERED: ATORVASTATIN CA40 M1 PO (13:41)
[2016-05-11] MEDS ORDERED: PLAVIX75 M1 PO (13:41)
--- NOTE | 2016-05-11 13:46 | Patient Discharge Instructions ---
Discharge Instructions General Discharge Information You were seen/treated for: Transient Ischemic Attack Watch for these problems: - Neurological deficits - slurred speech/weakness/numbness/visual changes - Palpitations Special Instructions: - Please follow up with Dr. Hylton to set up holter monitor - Please follow up with vascular surgery, Dr. Huynh, for carotid follow up - Please follow up with neurology as needed - Please follow up with PCP regarding medications changes (added plavix, gemfibrozil). - Please follow up magnesium level as it was low during this admission. Diet Continue normal diet: Yes Recommended Diet: Heart Healthy Activity Full Activity/No Limits: Yes Acute Coronary Syndrome Inclusion Criteria At DC or during hospital stay patient has or had the following: ACS DIAGNOSIS No Discharge Core Measures Meds if any: Prescribed or Continued at Discharge Meds if any: NOT Prescribed or Continued at Discharge Congestive Heart Failure Inclusion Criteria At DC or during hospital stay patient has or had the following: CHF DIAGNOSIS No Discharge Core Measures Meds if any: Prescribed or Continued at Discharge Meds if any: NOT Prescribed or Continued at Discharge Cerebrovascular accident Inclusion Criteria At DC or during hospital stay patient has or had the following: CVA/TIA Diagnosis Yes Discharge Core Measures Meds if any: Prescribed or Continued at Discharge Meds if any: NOT Prescribed or Continued at Discharge Venous thromboembolism Inclusion Criteria VTE Diagnosis No VTE Type NONE VTE Confirmed by (Test) NONE Discharge Core Measures - Per Current guidelines, there needs to be overlap - treatment for the first 5 days of Warfarin therapy. - If discharged on Warfarin prior to 5 days of - overlap therapy, the patient will need to be - assessed for post discharge needs including - *Post discharge parental anticoagulation - *Warfarin and/or parental anticoagulation education - *Follow up date to check INR post discharge At least 5 days overlap therapy as Inpatient No Meds if any: Prescribed or Continued at Discharge Note: Overlap Therapy is Warfarin and Anticoagulant Meds if any: NOT Prescribed or Continued at Discharge
[2016-05-11 16:15] VITALS: BP 130/78
--- NOTE | 2016-05-11 16:31 | ULTRASOUND REPORT ---
EXAMINATION: US RETROPERITONEAL COMPLETE (RENAL) CLINICAL INFORMATION: Acute on chronic kidney injury. Elevated creatinine level. COMPARISON: CT scan of the abdomen and pelvis dated 02/27/2008. TECHNIQUE: Real-time imaging of the kidneys and bladder. FINDINGS: RIGHT KIDNEY: 10.4 x 4.2 x 4.7 cm (SAG x AP x TRV). The kidney is normal in size, contour, and echogenicity. Renal cortical thickness is normal. No calculi or suspicious focal parenchymal lesions. Benign-appearing thin-walled anechoic 1.8 x 1.5 x 1.6 cm cortical cyst is seen in the upper pole of the right kidney. Second 0.8 x 0.5 x 0.7 cm partially exophytic cortical cyst is seen in the lower pole of the right kidney. No hydronephrosis. LEFT KIDNEY: 11.1 x 5.4 x 4.5 cm (SAG x AP x TRV). The kidney is normal in size, contour, and echogenicity. Renal cortical thickness is normal. Benign-appearing exophytic cortical cyst is seen in the upper pole, measuring 1.3 x 1.0 x 0.9 cm. Additional exophytic mid left renal cortical cyst is seen, measuring 5.1 x 3.0 x 3.5 cm with thin posterior eccentric and incomplete septation. In the lower pole of the left kidney, a 1.6 x 1.2 x 1.7 cm cyst is seen. There is a 0.4 cm nonobstructing calcification in the lower pole of the left kidney. No suspicious focal parenchymal lesions. No hydronephrosis. BLADDER: Decompressed and not adequately seen. Bilaterally, ureteral jets are not demonstrated. IMPRESSION: 1. Bilateral benign-appearing cysts. 2. Nonobstructing lower pole left renal calcification. 3. No evidence of hydronephrosis. 4. Bladder inadequately assessed.
--- NOTE | 2016-05-11 17:50 | Cons- Nephrology ---
General Information and HPI Consulting Request Date of Consult: 05/11/16 Requested By: KELLIE PEOPLES MD Reason for Consult: CKD Source of Information: patient, old records History of Present Illness: Luda Avila is a 65-year-old woman with known chronic kidney disease stage III secondary to hypertension and diabetes mellitus without high-grade proteinuria. Her baseline serum creatinine has been between 1.6 and 2.0. She now comes in with a 1-2 hour history of transient aphasic speech very suggestive of a TIA. There was no associated weakness and no headache or visual symptoms. Imaging studies of the brain failed to show a clearcut etiology. She does not have a history of atrial fibrillation and echocardiogram results are pending. Carotid studies show a moderate stenosis in the distal right internal carotid artery. MRA is being considered. With regard to her renal function, her serum creatinine which was 1.8 on April 13, was 2.2 on admission yesterday and 2.1 today. Renal ultrasound shows no hydronephrosis. She is currently feeling well with no neurologic or other symptoms. She admits that her intake had been poor for at least one day. Past medical history is positive for diabetes mellitus, hypertension, CK D as noted, no known retinopathy, asthma, fractured right elbow requiring open reduction 1970, hysterectomy in 1985, bladder suspension in 2007 with a subsequent appendectomy, D&C in 1985 and an ovarian cyst in 1979. Outpatient medications: See below Allergies: Erythromycin, aspirin Family history: Father is had hit, had history of ESRD and hypertension. Mother had a history of CVA. Son has a history of kidney disease and SLE. Brother has history of alcoholism. 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 Allergies/Medications Allergies: Coded Allergies: aspirin (RASH ALL OVER, RINGING IN THE EARS 05/10/16) erythromycin base (RASH ALL OVER 05/10/16) melon (HANDS SWELL, ITCH, THROAT ITCHES 05/10/16) Home Med List: Albuterol Sulfate (Proair Hfa) 90 MCG HFA.AER.AD 2 PUF INH PRN ASTHMA ( Reported) Cholecalciferol (Vitamin D3) (Vitamin D) 2,000 UNIT CAPSULE 1 CAP PO DAILY SUPPLEMENT (Reported) Citalopram Hydrobromide (Citalopram HBr) 20 MG TABLET 1 TAB PO QPM MENTAL HEALTH (Reported) Cyanocobalamin (Vitamin B-12) 1,000 MCG TABLET 1 TAB PO DAILY SUPPLEMENT ( Reported) Ezetimibe (Zetia) 10 MG TABLET 1 TAB PO QAM CHOLESTEROL (Reported) Losartan Potassium 50 MG TABLET 1 TAB PO QAM HTN (Reported) Metformin HCl 1,000 MG TABLET 1 TAB PO BID DM (Reported) Montelukast Sodium 10 MG TABLET 1 TAB PO DAILY ASTHMA/ALLERGIES (Reported) Multivitamin (Multi-Day Vitamins) 1 EACH TABLET 1 TAB PO DAILY SUPPLEMENT ( Reported) Pantoprazole Sodium 40 MG TABLET.DR 1 TAB PO DAILY AC GI (Reported) Review of Systems Review of Systems: Review of Systems Constitutional: Denies: chills, fever, weakness. EENTM: Denies: visual changes. Cardiovascular: Denies: chest pain, palpitations. Respiratory: Denies: cough, short of breath. GI: Denies: abdominal pain, bloating, constipation, diarrhea. Genitourinary: Denies: dysuria. Neurological/Psychological: Denies: numbness, paresthesia, tingling. 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 Psychosocial History Where Do You Live? Home Primary Language: Thai Smoking Status: Unknown If Ever Smoked Functional Ability ADLs Independent: dressing, eating, toileting, bathing. Ambulation: independent IADLs Independent: shopping, housework, finances, food prep, telephone, transportation , medication admin. 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 Exam & Diagnostic Data Vital Signs and I&O Vital Signs Date Time Temp Pulse Resp B/P Pulse O2 O2 Flow FiO2 Ox Delivery Rate 05/11 1615 97.8 93 18 130/78 93 05/11 0829 97.6 90 20 118/70 95 Nasal 2.0L Cannula 05/10 2200 98.0 86 20 120/70 97 Nasal 2.0L Cannula 05/10 1747 97.3 95 18 127/72 95 Nasal 2.0L Cannula Intake & Output 05/11 0400 05/10 0400 05/09 0400 Intake Total 1100 100 15 Output Total Balance 1100 100 15 Intake, IV 300 Intake, Oral 800 100 15 Patient 185 lb 190 lb 185 lb Weight Physical Exam: General: Well-developed white female in NAD Skin: No rash or jaundice HEENT: Conjunctivae pink, sclerae anicteric, mucous membranes moist Neck: Without masses or thyromegaly, no supraclavicular or cervical adenopathy Chest: Clear to P&A Heart: Regular rate and rhythm without S3 or rub Abdomen: Soft and nontender without palpable masses or organomegaly Extremities: Without cyanosis or edema Neuro: Awake, alert and oriented, speech within normal limits, no focal findings , no asterixis or myoclonus Results Pertinent Lab Results: Laboratory Tests 05/11 05/11 1315 0625 Chemistry Sodium (137 - 145 mmol/L) 140 Potassium (3.5 - 5.1 mmol/L) 4.6 Chloride (98 - 107 mmol/L) 104 Carbon Dioxide (22 - 30 mmol/L) 23 Anion Gap (5 - 16) 14 BUN (7 - 17 mg/dL) 32 H Creatinine (0.5 - 1.0 mg/dL) 2.1 H Estimated GFR (>60 ml/min) 24 L BUN/Creatinine Ratio (7 - 25 %) 15.2 Serum Osmolality (285 - 295 MOSM/KG) 303 H Triglycerides (<150 mg/dL) 362 H Cholesterol (<200 MG/DL) 166 LDL Cholesterol, Calc (65 - 129 mg/dL) 67 HDL Cholesterol (40 - 60 mg/dL) 27 L Cholesterol/HDL Ratio (0.00 - 4.23 %) 6 H Hematology CBC w Diff NO MAN DIFF REQ WBC (4.8 - 10.8 /CUMM) 6.1 RBC (4.20 - 5.40 /CUMM) 4.01 L Hgb (12.0 - 16.0 G/DL) 11.9 L Hct (37 - 47 %) 35.4 L MCV (81.0 - 99.0 FL) 88.2 MCH (27.0 - 31.0 PG) 29.7 RDW (11.5 - 14.5 %) 14.0 Plt Count (130 - 400 /CUMM) 286 MPV (7.4 - 10.4 FL) 8.8 Gran % (42.2 - 75.2 %) 38.4 L Lymphocytes % (20.5 - 51.1 %) 41.8 Monocytes % (1.7 - 9.3 %) 11.8 H Eosinophils % (0 - 5 %) 6.6 H Basophils % (0.0 - 2.0 %) 1.4 Absolute Granulocytes (1.4 - 6.5 /CUMM) 2.3 Absolute Lymphocytes (1.2 - 3.4 /CUMM) 2.6 Absolute Monocytes (0.10 - 0.60 /CUMM) 0.7 H Absolute Eosinophils (0.0 - 0.7 /CUMM) 0.4 Absolute Basophils (0.0 - 0.2 /CUMM) 0.1 PUBS MCHC (33.0 - 37.0 G/DL) 33.6 Urines Urine Osmolality (300 - 1000 MOSM/KG) 533 Ur Random Creatinine (mg/dL) 125.1 Ur Random Sodium (30 - 90 mmol/L) 47 Ur Random Potassium (mmol/L) 66.7 Fraction Sodium Excret (<1% %) 0.6 05/10 1443 Chemistry Sodium (137 - 145 mmol/L) 142 Potassium (3.5 - 5.1 mmol/L) 4.7 Chloride (98 - 107 mmol/L) 106 Carbon Dioxide (22 - 30 mmol/L) 18 L Anion Gap (5 - 16) 18 H BUN (7 - 17 mg/dL) 35 H Creatinine (0.5 - 1.0 mg/dL) 2.2 H Estimated GFR (>60 ml/min) 22 L BUN/Creatinine Ratio (7 - 25 %) 15.9 Glucose (65 - 99 mg/dL) 138 H Calcium (8.4 - 10.2 mg/dL) 9.9 Total Bilirubin (0.2 - 1.3 mg/dL) 0.4 AST (14 - 36 U/L) 36 ALT (9 - 52 U/L) 44 Alkaline Phosphatase (<127 U/L) 83 Troponin I (< 0.11 ng/ml) < 0.01 Total Protein (6.3 - 8.2 g/dL) 7.4 Albumin (3.5 - 5.0 g/dL) 4.3 Globulin (1.9 - 4.2 gm/dL) 3.1 Albumin/Globulin Ratio (1.1 - 2.2 %) 1.4 Hematology CBC w Diff NO MAN DIFF REQ WBC (4.8 - 10.8 /CUMM) 7.2 RBC (4.20 - 5.40 /CUMM) 4.16 L Hgb (12.0 - 16.0 G/DL) 12.3 Hct (37 - 47 %) 36.6 L MCV (81.0 - 99.0 FL) 88.1 MCH (27.0 - 31.0 PG) 29.6 RDW (11.5 - 14.5 %) 13.8 Plt Count (130 - 400 /CUMM) 311 MPV (7.4 - 10.4 FL) 8.5 Gran % (42.2 - 75.2 %) 48.8 Lymphocytes % (20.5 - 51.1 %) 33.6 Monocytes % (1.7 - 9.3 %) 11.1 H Eosinophils % (0 - 5 %) 5.3 H Basophils % (0.0 - 2.0 %) 1.2 Absolute Granulocytes (1.4 - 6.5 /CUMM) 3.5 Absolute Lymphocytes (1.2 - 3.4 /CUMM) 2.4 Absolute Monocytes (0.10 - 0.60 /CUMM) 0.8 H Absolute Eosinophils (0.0 - 0.7 /CUMM) 0.4 Absolute Basophils (0.0 - 0.2 /CUMM) 0.1 PUBS MCHC (33.0 - 37.0 G/DL) 33.6 Assessment/Plan Assessment/Recommendations Assessment: 65-year-old woman with known chronic kidney disease stage III secondary to diabetes mellitus and hypertension without retinopathy or high-grade proteinuria and with a baseline creatinine of 1.5-2.0, now comes in with symptoms very suggestive of a TIA. She is found to have a creatinine of 2.2 yesterday, falling slightly to 2.1 today. I suspect that this is on a prerenal basis, as the patient admits to poor intake for 24-48 hours prior to admission. The other issue that we are facing is whether to proceed with an MRA because of the nephrotoxic potential of the contrast medium. Recommendations: 1. Patient needs to be advised of the potential renal risk of contrast exposure compared to the neurologic risk of missing a correctable carotid lesion. I will discuss this with her as well. 2. In the meantime, would hydrate with half normal saline at 75 mL per hour 3. Would also begin acetylcysteine 600 mg by mouth every 12 hours starting at 6 PM this evening with plans for a total of 4 doses (2 doses prior to contrast exposure and 2 doses afterwards). 4. Monitor chemistries daily Thank you. We will follow along with you.
[2016-05-11 22:00] VITALS: BP 120/74
--- NOTE | 2016-05-12 06:41 | PN- Housestaff ---
THONY MESA,[facility] 05/12/16 0641: Subjective Follow-up For: TIA Subjective: Pt seen and examined this morning. Continues to do well without recurrent neurologic deficits. Pt agreeable to getting MRA. Spoke to reading neuroradiologist who would have preferred CTA but CTA cannot be done since her cr is more than 1.5, and unlikely to come down to that level. We will monitor her Cr one more day to make sure it is stable. Pt will not be getting ELANA given her GFR < 30. She had a brief approximately 2 sec episode of SVT? around 3am last night, she did not recall being awake/feeling discomfort at that time. Mag found to be low at 1.0, being repleted with mag ox bid, will recheck mag tomorrow. Her kidney functions is getting better with hydration. Review of Systems Constitutional: Denies: chills, fever. EENTM: Denies: visual changes. Cardiovascular: Denies: chest pain, palpitations. Respiratory: Denies: cough, short of breath. Gastrointestinal: Denies: abdominal pain, bloating, constipation, diarrhea. Genitourinary: Denies: dysuria. Objective Last 24 Hrs of Vital Signs/I&O Vital Signs Date Time Temp Pulse Resp B/P Pulse O2 O2 Flow FiO2 Ox Delivery Rate 05/12 0800 97.3 101 20 120/80 96 05/11 2200 98.0 84 20 120/74 97 Room Air 05/11 1615 97.8 93 18 130/78 93 Intake & Output 05/12 1600 05/12 0800 05/12 0000 Intake Total 100 1520 Output Total Balance 100 1520 Intake, IV 800 Intake, Oral 100 720 Patient 85.502 kg Weight Physical Exam General Appearance: Alert, Oriented X3, Cooperative Skin: No Significant Lesion HEENT: Atraumatic Neck: Supple Cardiovascular: Regular Rate, Normal S1, Normal S2, No Murmurs, Gallops, Rubs Lungs: Clear to Auscultation, Normal Air Movement Abdomen: Normal Bowel Sounds, Soft, No Tenderness Neurological: Normal Speech Extremities: No Edema Current Medications: Current Medications Sig/Allan Start time Last Medication Dose Route Stop Time Status Admin Acetylcysteine 600 MG 1800,0600 05/11 1800 AC /16 PO 05/12 1801 0600 Albuterol Sulfate 2 PUF DAILY 05/11 1000 AC INH Atorvastatin Calcium 40 MG 1700 05/11 1700 AC 05/11 PO 1702 Cholecalciferol 1,000 IU DAILY 05/11 1000 AC 05/12 PO 0849 Citalopram 20 MG QPM 05/10 2200 AC 05/11 Hydrobromide PO 205 Clopidogrel Bisulfate 75 MG DAILY 05/10 1804 AC 05/12 PO 0849 Cyanocobalamin 1,000 MCG DAILY 05/11 1000 AC 05/12 PO 0849 Dextrose/Sodium 1,000 ML Q13H 05/11 2300 CAN Chloride IV Insulin Human Regular 0 TIDAC/HS 05/10 2100 AC 05/12 SC 0849 Magnesium Oxide 400 MG BID 05/12 1112 AC PO Omeprazole 40 MG DAILY AC 05/11 0700 AC 05/12 PO 0635 Sodium Chloride 1,000 ML Q13H 05/11 1930 AC 05/12 IV 0850 Sodium Chloride 1,000 ML ONCE ONE 05/11 0945 DC 05/11 IV 05/11 1944 1305 Last 24 Hrs of Lab/Mik Results Last 24 Hrs of Labs/Mics: Laboratory Tests 05/12/16 0847: Urine Color YEL, Urine Clarity CLEAR, Urine pH 6.0, Ur Specific [place] 1.020, Urine Protein TRACE H, Urine Ketones NEG, Urine Nitrite NEG, Urine Bilirubin NEG, Urine Urobilinogen 0.2, Ur Leukocyte Esterase TRACE H, Ur Microscopic SEDIMENT EXAMINED, Urine RBC RARE, Urine WBC 1-3 H, Ur Epithelial Cells MOD H, Urine Hemoglobin NEG, Urine Glucose NEG 05/12/16 0635: Anion Gap 14, Estimated GFR 25 L, BUN/Creatinine Ratio 13.5, Magnesium 1.0 L 05/11/16 1315: Fluid Urea Nitrogen Cancelled, Urine Osmolality 533, Ur Random Creatinine 125.1, Ur Random Sodium 47, Ur Random Potassium 66.7, Fraction Sodium Excret 0.6 Assessment/Plan Assessment: 65-year-old female with PMH of HTN,HLD,right sided Jam due to surgical procedure, NSAID induced kidney injury, was brought in by ambulance for aphasia that lasted 1 hour. Problem list: # TIA # NSAID induced kidney injury, acute on chronic CKD # Hypertension # Hyperlipidemia # DM type II # Asthma # TIA - Given 1 x 25 mg persantine in Ed - Allergic to ASA - ringing ears and rash - Refused tpa due to bleeding risk - Apr 2016 Echo: Normal findings * Neuro consulted * Continue plavix 75 daily * Continue lipitor 40 daily, watch for myalgia * Lipid panel: high TG 362 * MRI without contrast: no acute change. chronic ischemic change. * Carotid doppler:possible moderate stenosis of distal internal carotid artery, recommend MRA - IVF and NAC 600 bid X 3 doses * Follow up MRA of head and neck * F/U with Dr. Hylton for outpatient holter monitor. * PT/OT # NSAID induced kidney injury, acute on chronic ckd - BUN/cr on admission 35/2.2 - No obstruction on kidney US but found some cysts. * Dr Cat consulted * Avoid contrast/NSAIDs # Hypertension * HOLD losartan 50 mg daily # Hyperlipidemia * Hold home ezetimibe * Start lipitor 40, watch for myalgia * Consider starting fibrate # DM type II * Hold home metformin * Accucheck and insulin ss # Asthma * albuterol prn * Singulair 10 daily # Continue home meds * Multivitamin, Vit D3, Vit B12 * Citalopram 20 qpm * Pantoprazole 40 daily Diet: heart healthy DVT ppx: alps FULL CODE Problem List: 1. TIA (transient ischemic attack) Pain Ratin Pain Location: none Pain Goal: Remain pain free Pain Plan: none Tomorrow's Labs & Rationales: Bep for acute on chronic ckd mag for hypomag DVT/Prophylaxis: GAL Mckeon MD 05/12/16 1451: Attending MD Review Statement Attending Statement Attending MD Statement: examined this patient, discuss w/resident/PA/STAGE SET DESIGNER, agreed w/resident/PA/STAGE SET DESIGNER, discussed with family, reviewed EMR data (avail), discussed with nursing, discussed with case mgmt, amended to note Attending Assessment/Plan: Patient seen and examined. Resting comfortably and not in acute distress. No issues overnight. Denies chest pain or shortness of breath. Denies any further neurologic deficit. On examination she has no gross focal deficits. Case was discussed with the radiology service. Due to her significant renal insufficiency contrast studies been deferred. Noncontrast MRA of the head and neck was done. Study was limited however there is evidence of 50-60% stenosis involving the distal left common carotid artery. Stenosis is noted and ultrasound on the right side is not clearly identified during this study. Her renal function somewhat stable. Creatinine has gone down from 2.2 on admission to 2.0. Magnesium is on the lower side. Recommendation: -Stroke is likely secondary to underlying atherosclerosis in light of her carotid Doppler and MRA findings as well as evidence of chronic microvascular ischemic disease and that the infarcts noted on imaging. -Continue antiplatelet therapy with Plavix upon discharge. Discuss with her PCP. Patient did not tolerate statin therapy the past. Her LDL is also at goal. We will continue on ezitimide and start her on Gemfibriozil 600 mg orally twice daily for elevated triglycerides. -I did discuss her case with her primary care provider Praveena Juárez MD. Following evaluation in outpatient to consider referral to cardiology service for more prolonged cardiac monitoring to rule out occult atrial fibrillation. -She will continue to follow with Jaime Cat MD as an outpatient for management of her chronic kidney disease. -We will discharge her with prescriptions for magnesium oxide twice daily for 1 day. She should follow-up with Praveena Juárez MD next week for repeat blood work. Addendum Patients collette called and insists that patient should be on a statin. Patient reports and her PCP conforms that she was on a statin as an outpt but this was discontinued as she developed myalgias. however once ectopy please back on a statin. I did explain to her that patient's LDL was at goal and right now focal should be on reducing her triglyceride level with a fibrate. 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 Patient will be provided with prescriptions for statin therapy. If she continues to tolerate this as an outpatient she may follow-up with her primary care provider for continued therapy.
[2016-05-12 08:00] VITALS: BP 120/80
--- NOTE | 2016-05-12 09:02 | ECHOCARDIOGRAM REPORT ---
SALAS CHEN Age: 65 : 1950 Gender: F Exam Date: 05/11/2016 10:44 Exam Location: 1 [address] Ht (in): 64 Wt (lb): 185 BSA: 1.98 BP: 120 / 70 Ordering Physician: BERNARD LARA MD Referring Physician: BERNARD LARA MD Technologist: Zac Bates [facility] [[email or web address]] Room Number: 174-2 Indications: TIA Rhythm: Sinus Technical Quality: Good FINDINGS Left Ventricle Normal global left ventricular size, wall thickness, systolic function with no obvious regional wall motion abnormalities. Left ventricular ejection fraction is estimated at >65 %. Abnormal relaxation filling pattern of the left ventricle for age (stage 1 diastolic dysfunction). Right Ventricle The right ventricle is normal in size and function. Right Atrium The right atrium is normal in size. Left Atrium The left atrium is normal in size. The interatrial septum is intact. Mitral Valve Mild thickening/calcification of the mitral valve leaflets. Trace mitral regurgitation. Aortic Valve Diffuse thickening (sclerosis) of the aortic valve cusps without reduced excursion. No aortic stenosis. No aortic regurgitation. Tricuspid Valve The tricuspid valve is normal in structure and function. There is trace tricuspid regurgitation. Pulmonary artery systolic pressure is normal. Pulmonic Valve Structurally normal pulmonic valve. There is no pulmonic regurgitation. Pericardium Normal pericardium without effusion. No pleural effusion. Great Vessels Normal aortic root dimension. The aortic arch and great vessels are well seen and are normal. CONCLUSIONS Normal global left ventricular size, wall thickness, systolic function with no obvious regional wall motion abnormalities. The left atrium is normal in size. Mild thickening/calcification of the mitral valve leaflets. Trace mitral regurgitation. Diffuse thickening (sclerosis) of the aortic valve cusps without reduced excursion. No aortic stenosis. Pulmonary artery systolic pressure is normal. David Adams M.D. (Electronically Signed) Final Date: 12 May 2016 09:01 MEASUREMENTS (Male / Female) Normal Values 2D ECHO LV Diastolic Diameter PLAX 3.6 cm 4.2 - 5.9 / 3.9 - 5.3 cm LV Systolic Diameter PLAX 1.9 cm 2.1 - 4.0 cm LV Fractional Shortening PLAX 47.2 % 25 - 46 % LV Ejection Fraction 2D Teich 79.5 % IVS Diastolic Thickness 1.0 cm LVPW Diastolic Thickness 1.0 cm LV Relative Wall Thickness 0.6 RV Internal Dim ED PLAX 2.6 cm 1.9 - 3.8 cm LVOT Diameter 1.8 cm Aortic Root Diameter 2.8 cm LA Systolic Diameter LX 3.1 cm 3.0 - 4.0 / 2.7 - 3.8 cm LA Volume 33.0 cm 18 - 58 / 22 - 52 cm Ascending Aorta Diameter 2.7 cm DOPPLER AV Peak Velocity 127.0 cm/s AV Peak Gradient 6.5 mmHg AV Mean Velocity 89.1 cm/s AV Mean Gradient 4.0 mmHg AV Velocity Time Integral 26.6 cm LVOT Peak Velocity 110.0 cm/s LVOT Peak Gradient 4.8 mmHg LVOT Mean Velocity 64.9 cm/s LVOT Mean Gradient 2.0 mmHg LVOT Velocity Time Integral 22.8 cm LVOT Stroke Volume 58.0 cm AV Area Cont Eq vti 2.2 cm AV Area Cont Eq pk 2.2 cm MV Peak Velocity 92.4 cm/s MV Peak Gradient 3.4 mmHg MV Mean Velocity 53.8 cm/s MV Mean Gradient 1.0 mmHg Mitral E Point Velocity 48.9 cm/s Mitral A Point Velocity 73.1 cm/s Mitral E to A Ratio 0.7 MV PHT Velocity 71.9 cm/s MV Deceleration Arthur 323.0 cm/s MV Pressure Half Time 66.8 ms MV Area PHT 3.3 cm MV Deceleration Time 275.0 ms TR Peak Velocity 99.1 cm/s TR Peak Gradient 3.9 mmHg Right Atrial Pressure 5.0 mmHg Pulmonary Artery Systolic Pressu 8.9 mmHg Right Ventricular Systolic Press 8.9 mmHg PV Peak Velocity 120.0 cm/s PV Peak Gradient 5.8 mmHg PV Mean Velocity 86.1 cm/s PV Mean Gradient 3.0 mmHg PV Velocity Time Integral 23.9 cm LV E' Lateral Velocity 8.7 cm/s Mitral E to LV E' Lateral Ratio 5.6 LV E' Septal Velocity 8.4 cm/s Mitral E to LV E' Septal Ratio 5.8
--- NOTE | 2016-05-12 11:49 | PN- Student ---
Subjective Subjective: Source: Patient Follow up for: Transcient Ischemic Attack I visited the patient this morning and she was sitting on her bed. The patient was talkative and wasn't showing any signs of deterioration since initial admission status. The patient admitted to be feeling well and she understood the reason why she was keeping her inpatient status for now. She mentioned that she talked yesterday to Dr. Cat and that they both agree on doing the Contrast MRI to assess the Head and Neck vascular profile. It was mentioned to the patient that she might be discharged tomorrow and she agreed on the reason why it should be that way (Creatinine clearence). Review of Systems: General: Patient wasn't in respiratory distress. She was afebrile, denies chills or night sweats and is alert and oriented X3. Cardiovascular: Denies palpitations or chest pain GI: Denies constipation, diarrhea, nausea Genitourinary: Denies any changes in urine color or frequency Objective Objective: Current Medications Sig/Allan Start time Last Medication Dose Route Stop Time Status Admin Acetylcysteine 600 MG 1800,0600 05/11 1800 AC 05/12 PO 05/12 1801 0600 Albuterol Sulfate 2 PUF DAILY 05/11 1000 AC INH Atorvastatin Calcium 40 MG 1700 05/11 1700 AC 05/11 PO 1702 Cholecalciferol 1,000 IU DAILY 05/11 1000 AC 05/12 PO 0849 Citalopram 20 MG QPM 05/10 2200 AC 05/11 Hydrobromide PO 2058 Clopidogrel Bisulfate 75 MG DAILY 05/10 1804 AC 05/12 PO 0849 Cyanocobalamin 1,000 MCG DAILY 05/11 1000 AC 05/12 PO 0849 Dextrose/Sodium 1,000 ML Q13H 05/11 2300 CAN Chloride IV Insulin Human Regular 0 TIDAC/HS 05/10 2100 AC 05/12 SC 0849 Magnesium Oxide 400 MG BID 05/12 1112 AC PO Omeprazole 40 MG DAILY AC 05/11 0700 AC 05/12 PO 0635 Sodium Chloride 1,000 ML Q13H 05/11 1930 AC 05/12 IV 0850 Sodium Chloride 1,000 ML ONCE ONE 05/11 0945 DC 05/11 IV 05/11 1944 1305 Vital Signs Date Time Temp Pulse Resp B/P Pulse O2 O2 Flow FiO2 Ox Delivery Rate 05/12 0800 97.3 101 20 120/80 96 05/11 2200 98.0 84 20 120/74 97 Room Air 05/11 1615 97.8 93 18 130/78 93 Intake & Output 05/12 1600 05/12 0800 05/12 0000 Intake Total 100 1520 Output Total Balance 100 1520 Intake, IV 800 Intake, Oral 100 720 Patient 189 lb Weight Physical Examination: General: The patient wasn't in any type of distress, denies any weight changes and is alert and oriented X3 HEENT: NC/AT, EOMI, PERRL Neck: Supple Lungs: Clear to auscultation without any audible wheezes/crackles/ronchi CV: Normal S1, S2 were heard; No murmurs/gallops were appreciated GI: Normal bowel sounds Neurological: Normal speech Results Results: Laboratory Tests 05/12/16 0847: Urine Color YEL, Urine Clarity CLEAR, Urine pH 6.0, Ur Specific Page 1.020, Urine Protein TRACE H, Urine Ketones NEG, Urine Nitrite NEG, Urine Bilirubin NEG, Urine Urobilinogen 0.2, Ur Leukocyte Esterase TRACE H, Ur Microscopic SEDIMENT EXAMINED, Urine RBC RARE, Urine WBC 1-3 H, Ur Epithelial Cells MOD H, Urine Hemoglobin NEG, Urine Glucose NEG 05/12/16 0635: Anion Gap 14, Estimated GFR 25 L, BUN/Creatinine Ratio 13.5, Magnesium 1.0 L 05/11/16 1315: Fluid Urea Nitrogen Cancelled, Urine Osmolality 533, Ur Random Creatinine 125.1, Ur Random Sodium 47, Ur Random Potassium 66.7, Fraction Sodium Excret 0.6 05/11/16 0625: Anion Gap 14, Estimated GFR 24 L, BUN/Creatinine Ratio 15.2, Serum Osmolality 303 H, Triglycerides 362 H, Cholesterol 166, LDL Cholesterol, Calc 67, HDL Cholesterol 27 L, Cholesterol/HDL Ratio 6 H, CBC w Diff NO MAN DIFF REQ, RBC 4.01 L, MCV 88.2, MCH 29.7, RDW 14.0, MPV 8.8, Gran % 38.4 L, Lymphocytes % 41.8, Monocytes % 11.8 H, Eosinophils % 6.6 H, Basophils % 1.4, Absolute Granulocytes 2.3, Absolute Lymphocytes 2.6, Absolute Monocytes 0.7 H, Absolute Eosinophils 0.4, Absolute Basophils 0.1, PUBS MCHC 33.6 05/10/16 1443: Anion Gap 18 H, Estimated GFR 22 L, BUN/Creatinine Ratio 15.9, Glucose 138 H, Calcium 9.9, Total Bilirubin 0.4, AST 36, ALT 44, Alkaline Phosphatase 83, Troponin I < 0.01, Total Protein 7.4, Albumin 4.3, Globulin 3.1, Albumin/ Globulin Ratio 1.4, CBC w Diff NO MAN DIFF REQ, RBC 4.16 L, MCV 88.1, MCH 29.6, RDW 13.8, MPV 8.5, Gran % 48.8, Lymphocytes % 33.6, Monocytes % 11.1 H, Eosinophils % 5.3 H, Basophils % 1.2, Absolute Granulocytes 3.5, Absolute Lymphocytes 2.4, Absolute Monocytes 0.8 H, Absolute Eosinophils 0.4, Absolute Basophils 0.1, PUBS MCHC 33.6 Assessment/Plan Assessment: Ms. Avila is a 65 y/o patient that came in to the [facility] due to an episode of aphasia that had a duration of one hour. 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 Upon admission the patient had mild symptoms that were suggestive of a TIA and persantine was given since the patient has a previous history of reaction towards Aspirin. Currently the patient's vital signs are stable but the HR has been tachycardic in several occasions (ranging around 90-100's). On examination all neurological aspects were preserved. Based on these findings it is very possible thatr patient suffered from a TIA. Plan: Problem List & Plan: 1) Hypertension - Hold Losartan that the patient commonly uses at home since the kidney function has declined - If the blood pressure rises abruptly (e.g. >160/100) resume Losartan 2) Low Fat Diet - Low fat diet is prefered at the moment since the patient might have vascular compromise 3) DVT PPx - Have the patient on ALP's if she decreased current physical activity
--- NOTE | 2016-05-12 12:31 | MRI REPORT ---
EXAMINATION: MRA OF THE HEAD AND NECK WITHOUT IV CONTRAST CLINICAL INFORMATION: Doppler with 50-79% stenosis of the distal right ICA COMPARISON: TIA. Doppler showing 50-79% stenosis of the distal right ICA. TECHNIQUE: Noncontrast [id number] MRA of the head and neck are obtained. 3-D post processing including the acquisition of multiplanar MIP reformats are acquired at the technologist workstation and utilized for image interpretation. FINDINGS: MRA HEAD: The anterior and posterior intracranial arterial circulations exhibit normal flow related signal with no significant arterial stenoses and no acute arterial occlusions. There are no aneurysms. MRA NECK: There is a 3 mayers vessel branch configuration off the aortic arch. The imaged great vessel origins are widely patent. The vertebral arteries are codominant and appear widely patent from their ostia through the intradural segments. There is a 50-60% stenosis involving the distal left common carotid artery which may be overestimated in the setting of calcific atherosclerotic plaque on noncontrast MRA. The right common carotid artery is widely patent. As noted on the recent Doppler ultrasound there is a stenosis involving the right internal carotid artery bulb that is suspected to be approximately 50% though assessment with noncontrast MRA is limited secondary to artifact from calcific atherosclerotic plaque. There is no significant stenosis involving the proximal left ICA. Internal carotid arteries otherwise appear widely patent. Distal left internal carotid artery is tortuous. There is no increased signal on T1 fat-suppressed imaging adjacent to the cervical arterial vasculature to suggest the presence of intramural hematoma/arterial dissection. Likely stable left thyroid lobe nodule that has been previously assessed with ultrasound. IMPRESSION: - Assessment with noncontrast MRA is limited with a suspected approximately 50% stenosis involving the right internal carotid artery bulb by NASCET criteria. - There is a 50-60% stenosis involving the distal left common carotid artery which may be overestimated in the setting of calcific atherosclerotic plaque on noncontrast MRA. - There is no evidence of arterial dissection. - Likely stable left thyroid lobe nodule that has been previously assessed with ultrasound.
--- NOTE | 2016-05-12 13:52 | PN- Nephrology ---
Assessment/Plan Assessment: 1. 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 LEEANNE secondary to volume depletion -resolving 3. TIA with apparently subcritical carotid stenoses and with relatively unremarkable echocardiogram Suggestion: 1. Would discontinue any further IV fluids 2. No need for acetylcysteine 3. Await further Neuro recommendations Subjective Subjective: Patient feels well with no neurologic or other symptoms. She underwent MRA without contrast earlier today showing approximately 50% stenoses in both carotid arteries. Echocardiogram essentially unremarkable. Renal function slowly returning to baseline levels. Objective Vital Signs and I&Os Vital Signs Date Time Temp Pulse Resp B/P Pulse O2 O2 Flow FiO2 Ox Delivery Rate 05/12 08 97.3 101 20 120/80 96 05/11 2200 98.0 84 20 120/74 97 Room Air 05/11 1615 97.8 93 18 130/78 93 Intake & Output 05/12 1600 05/12 0400 05/11 1600 05/11 0400 05/10 1600 05/10 0400 Intake Total 100 1520 1100 100 15 Output Total Balance 100 1520 1100 100 15 Intake, IV 800 300 Intake, Oral 100 720 800 100 15 Patient 189 lb 185 lb 190 lb 185 lb Weight Physical Exam: General: Well-developed white female in NAD Skin: No rash or jaundice HEENT: Conjunctivae pink, sclerae anicteric, mucous membranes moist Neck: Without masses or thyromegaly, no supraclavicular or cervical adenopathy Chest: Clear to P&A Heart: Regular rate and rhythm without S3 or rub Abdomen: Soft and nontender without palpable masses or organomegaly Extremities: Without cyanosis or edema Neuro: Awake, alert and oriented, speech within normal limits, no focal findings , no asterixis or myoclonus Current Medications: Current Medications Sig/Allan Start time Last Medication Dose Route Stop Time Status Admin Acetylcysteine 600 MG 1800,0600 05/11 1800 DC 05/12 PO 05/13 0601 0600 Albuterol Sulfate 2 PUF DAILY 05/11 1000 AC INH Atorvastatin Calcium 40 MG 1700 05/11 1700 AC 05/11 PO 1702 Cholecalciferol 1,000 IU DAILY 05/11 1000 AC 05/12 PO 0849 Citalopram 20 MG QPM 05/10 2200 AC 05/11 Hydrobromide PO 205 Clopidogrel Bisulfate 75 MG DAILY 05/10 1804 AC 05/12 PO 0849 Cyanocobalamin 1,000 MCG DAILY 05/11 1000 AC 05/12 PO 0849 Dextrose/Sodium 1,000 ML Q13H 05/11 2300 CAN Chloride IV Insulin Human Regular 0 TIDAC/HS 05/10 2100 AC 05/12 SC 0849 Magnesium Oxide 400 MG ONE ONE 05/12 1345 DC PO 05/12 1346 Magnesium Oxide 400 MG BID 05/12 1112 DC PO Omeprazole 40 MG DAILY AC 05/11 0700 AC 05/12 PO 0635 Sodium Chloride 1,000 ML Q13H 05/11 1930 AC 05/12 IV 0850 Sodium Chloride 1,000 ML ONCE ONE 05/11 0945 DC 05/11 IV 05/11 1944 1305 Results Pertinent Lab Results: Laboratory Tests 05/12 05/12 05/11 0847 0635 1315 Chemistry Sodium (137 - 145 mmol/L) 139 Potassium (3.5 - 5.1 mmol/L) 4.5 Chloride (98 - 107 mmol/L) 104 Carbon Dioxide (22 - 30 mmol/L) 21 L Anion Gap (5 - 16) 14 BUN (7 - 17 mg/dL) 27 H Creatinine (0.5 - 1.0 mg/dL) 2.0 H Estimated GFR (>60 ml/min) 25 L BUN/Creatinine Ratio (7 - 25 %) 13.5 Magnesium (1.6 - 2.3 mg/dL) 1.0 L Other Body Source Fluid Urea Nitrogen Cancelled Urines Urine Color (YEL,AMB,STR) YEL Urine Clarity (CLEAR) CLEAR Urine pH (5.0 - 8.0) 6.0 Ur Specific Cowley (1.001 - 1.035) 1.020 Urine Protein (NEG,<30 MG/DL) TRACE H Urine Ketones (NEG) NEG Urine Nitrite (NEG) NEG Urine Bilirubin (NEG) NEG Urine Urobilinogen (0.1 - 1.0 EU/dl) 0.2 Ur Leukocyte Esterase (NEG) TRACE H Ur Microscopic SEDIMENT EXAMINED Urine RBC (0 - 5 /HPF) RARE Urine WBC (0 - 2 /HPF) 1-3 H Ur Epithelial Cells (NONE,FEW) MOD H Urine Hemoglobin (NEG) NEG Urine Osmolality (300 - 1000 MOSM/KG) 533 Ur Random Creatinine (mg/dL) 125.1 Ur Random Sodium (30 - 90 mmol/L) 47 Ur Random Potassium (mmol/L) 66.7 Fraction Sodium Excret (<1% %) 0.6 Urine Glucose (N MG/DL) NEG 05/11 05/10 0625 1443 Chemistry Sodium (137 - 145 mmol/L) 140 142 Potassium (3.5 - 5.1 mmol/L) 4.6 4.7 Chloride (98 - 107 mmol/L) 104 106 Carbon Dioxide (22 - 30 mmol/L) 23 18 L Anion Gap (5 - 16) 14 18 H BUN (7 - 17 mg/dL) 32 H 35 H Creatinine (0.5 - 1.0 mg/dL) 2.1 H 2.2 H Estimated GFR (>60 ml/min) 24 L 22 L BUN/Creatinine Ratio (7 - 25 %) 15.2 15.9 Glucose (65 - 99 mg/dL) 138 H Serum Osmolality (285 - 295 MOSM/KG) 303 H Calcium (8.4 - 10.2 mg/dL) 9.9 Total Bilirubin (0.2 - 1.3 mg/dL) 0.4 AST (14 - 36 U/L) 36 ALT (9 - 52 U/L) 44 Alkaline Phosphatase (<127 U/L) 83 Troponin I (< 0.11 ng/ml) < 0.01 Total Protein (6.3 - 8.2 g/dL) 7.4 Albumin (3.5 - 5.0 g/dL) 4.3 Globulin (1.9 - 4.2 gm/dL) 3.1 Albumin/Globulin Ratio (1.1 - 2.2 %) 1.4 Triglycerides (<150 mg/dL) 362 H Cholesterol (<200 MG/DL) 166 LDL Cholesterol, Calc (65 - 129 mg/dL) 67 HDL Cholesterol (40 - 60 mg/dL) 27 L Cholesterol/HDL Ratio (0.00 - 4.23 %) 6 H Hematology CBC w Diff NO MAN DIFF REQ NO MAN DIFF REQ WBC (4.8 - 10.8 /CUMM) 6.1 7.2 RBC (4.20 - 5.40 /CUMM) 4.01 L 4.16 L Hgb (12.0 - 16.0 G/DL) 11.9 L 12.3 Hct (37 - 47 %) 35.4 L 36.6 L MCV (81.0 - 99.0 FL) 88.2 88.1 MCH (27.0 - 31.0 PG) 29.7 29.6 RDW (11.5 - 14.5 %) 14.0 13.8 Plt Count (130 - 400 /CUMM) 286 311 MPV (7.4 - 10.4 FL) 8.8 8.5 Gran % (42.2 - 75.2 %) 38.4 L 48.8 Lymphocytes % (20.5 - 51.1 %) 41.8 33.6 Monocytes % (1.7 - 9.3 %) 11.8 H 11.1 H Eosinophils % (0 - 5 %) 6.6 H 5.3 H Basophils % (0.0 - 2.0 %) 1.4 1.2 Absolute Granulocytes (1.4 - 6.5 /CUMM) 2.3 3.5 Absolute Lymphocytes (1.2 - 3.4 /CUMM) 2.6 2.4 Absolute Monocytes (0.10 - 0.60 /CUMM) 0.7 H 0.8 H Absolute Eosinophils (0.0 - 0.7 /CUMM) 0.4 0.4 Absolute Basophils (0.0 - 0.2 /CUMM) 0.1 0.1 PUBS MCHC (33.0 - 37.0 G/DL) 33.6 33.6
[2016-05-12] MEDS ORDERED: GEMFIBROZIL600 M1 PO (15:33)
[2016-05-12] MEDS ORDERED: MAGNESIUM400 M1 PO (15:35)
[2016-05-12] MEDS ORDERED: LIPITOR40 M1 PO (16:47)
--- NOTE | 2016-05-13 06:53 | Discharge Summary ---
Visit Information Visit Dates Admission Date: 05/10/16 Discharge Date: 05/12/16 Hospital Course Course Attending Physician: Dr. Deyr Primary Care Physician: JUNITO MESA,[facility] Hospital Course: 65-year-old female with PMH of HTN,HLD,right sided Jam due to surgical procedure, NSAID induced kidney injury, was brought in by ambulance for aphasia that lasted 1 hour. She has allergy to aspirin, hence dipyramole was given in the ED, followed by plavix. tPA was refused due to risk of bleeding. She had no further neurological deficits. We did workup including CT head, carotid doppler, MRI/MRA, echocardiogram. * Head imaging showed no acute change but chronic ischemic changes. * Doppler shows moderate stenosis of distal right carotid while MRA shows 50-60% stenosis of distal left common carotid artery which can be overestimated. Pt will follow up with Dr. Huynh from vascular surgery for follow up. * She also had brief SVT lasting 2-3 seconds, which we briefly consulted Dr. Hylton. He recommended outpatient follow up for holter monitor. Mag was found to be low, at 1.0, repleted, instructed pt to follow up for mag. * Gemfibrozil added for high TG, and her daughter insisted on putting pt on lipitor even though she had myalgia in the past. Instructed pt to follow up with PCP. Please follow up LFT and watch for myalgia. * Plavix added. Not given aspirin due to hx of allergy (rash,tinnitus). Need to follow up with Dr. Perez/PCP to continue plavix. * Her Cr was also higher than her baseline of 1.7. It was 2.2 on admission. Improved to 2.0 with hydration. There was also kidney cyst, which Dr. Cat is aware. Will follow up with Dr. Cat. For more detailed hospital course, see below: Problem list: # TIA # NSAID induced kidney injury, acute on chronic CKD # Hypertension # Hyperlipidemia # DM type II # Asthma # TIA - Given 1 x 25 mg persantine in Ed - Allergic to ASA - ringing ears and rash - Refused tpa due to bleeding risk - Apr 2016 Echo: Normal findings * Neuro (Dr. Perez) consulted * Started and continue plavix 75 daily * Started and continue lipitor 40 daily, watch for myalgia * Lipid panel: high TG 362 * MRI without contrast: no acute change. chronic ischemic change. * Carotid doppler:possible moderate stenosis of distal internal carotid artery * MRA of head and neck done * F/U with Dr. Hylton for outpatient holter monitor. # NSAID induced kidney injury, acute on chronic ckd - BUN/cr on admission 35/2.2 - No obstruction on kidney US but found some cysts. * Dr Cat consulted * Avoided contrast/NSAIDs # Hypertension * Held losartan 50 mg daily. Continued at discharge # Hyperlipidemia * Held home ezetimibe. Continued at discharge * Started and continued lipitor 40, watch for myalgia * Gemfibrozil started at discharge # DM type II * Held home metformin. Continue at discharge. * Accucheck and insulin ss # Asthma * albuterol prn * Singulair 10 daily # Continue home meds * Multivitamin, Vit D3, Vit B12 * Citalopram 20 qpm * Pantoprazole 40 daily Allergies: Coded Allergies: aspirin (RASH ALL OVER, RINGING IN THE EARS 05/10/16) erythromycin base (RASH ALL OVER 05/10/16) melon (HANDS SWELL, ITCH, THROAT ITCHES 05/10/16) Significant Procedures: EXAM TYPE: MRI - MRA-HEAD; MRA-NECK W/O ELANA EXAMINATION: MRA OF THE HEAD AND NECK WITHOUT IV CONTRAST CLINICAL INFORMATION: Doppler with 50-79% stenosis of the distal right ICA COMPARISON: TIA. Doppler showing 50-79% stenosis of the distal right ICA. TECHNIQUE: Noncontrast [id number] MRA of the head and neck are obtained. 3-D post processing including the acquisition of multiplanar MIP reformats are acquired at the technologist workstation and utilized for image interpretation. FINDINGS: MRA HEAD: The anterior and posterior intracranial arterial circulations exhibit normal flow related signal with no significant arterial stenoses and no acute arterial occlusions. There are no aneurysms. MRA NECK: There is a 3 gerber vessel branch configuration off the aortic arch. The imaged great vessel origins are widely patent. The vertebral arteries are codominant and appear widely patent from their ostia through the intradural segments. There is a 50-60% stenosis involving the distal left common carotid artery which may be overestimated in the setting of calcific atherosclerotic plaque on noncontrast MRA. The right common carotid artery is widely patent. As noted on the recent Doppler ultrasound there is a stenosis involving the right internal carotid artery bulb that is suspected to be approximately 50% though assessment with noncontrast MRA is limited secondary to artifact from calcific atherosclerotic plaque. There is no significant stenosis involving the proximal left ICA. Internal carotid arteries otherwise appear widely patent. Distal left internal carotid artery is tortuous. There is no increased signal on T1 fat-suppressed imaging adjacent to the cervical arterial vasculature to suggest the presence of intramural hematoma/arterial dissection. Likely stable left thyroid lobe nodule that has been previously assessed with ultrasound. IMPRESSION: - Assessment with noncontrast MRA is limited with a suspected approximately 50% stenosis involving the right internal carotid artery bulb by NASCET criteria. - There is a 50-60% stenosis involving the distal left common carotid artery which may be overestimated in the setting of calcific atherosclerotic plaque on noncontrast MRA. - There is no evidence of arterial dissection. - Likely stable left thyroid lobe nodule that has been previously assessed with ultrasound. DICTATED BY: LATASHA BROWNING MD DATE/TIME DICTATED:05/12/161208 EXAM TYPE: MRI - MRI-HEAD W/O ELANA EXAMINATION: MR BRAIN WITHOUT CONTRAST CLINICAL INFORMATION: Aphasia. TIA. COMPARISON: CT scan of the head 05/10/2016. TECHNIQUE: MRI of the brain without contrast was obtained using routine sequences. FINDINGS: No diffusion abnormalities are identified to suggest an acute or subacute infarct. No mass effect or midline shift is seen. The ventricles are normal in size. There are a few scattered foci of increased T2 and FLAIR signal in the periventricular white matter, most consistent with chronic microvascular ischemic changes. There are small lacunar infarcts in the basal ganglia and central bernie. No extra-axial fluid collections are seen. The cerebellum appears normal. No pathologic magnetic susceptibility artifact is identified on the gradient refocused acquisition. The craniovertebral junction, marrow signal, and midline structures are normal. The major intracranial flow-voids at the level of the [place] are preserved. There is hyperostosis frontalis interna. The dural venous sinus flow-voids are maintained. The mastoid air cells and paranasal sinuses are well-aerated. IMPRESSION: 1. There are no acute bleeds or infarcts. 2. There are sequelae of chronic microvascular ischemic disease and lacunar infarctions. DICTATED BY: SHAUNA MEJIA MD DATE/TIME DICTATED:05/11/161102 EXAM TYPE: CAT - CT HEAD WO IV CONTRAST EXAMINATION: CT HEAD WITHOUT CONTRAST CLINICAL INFORMATION: TIA versus CVA. COMPARISON: None TECHNIQUE: Contiguous axial imaging was performed from the skull base to vertex without intravenous administration of contrast. DLP: 601 mGy-cm FINDINGS: There is no evidence of acute intracranial hemorrhage or territorial infarction. No abnormal mass effect or midline shift is seen. Gerber to white matter differentiation is well preserved. No extra-axial fluid collections are identified. The ventricles are normal in size. There is moderate atherosclerotic calcification of the distal internal carotid arteries. There is mild decrease in periventricular deep white matter attenuation consistent with mild small vessel ischemic changes. The osseous structures and soft tissues are normal. The mastoid air cells and visualized portions of the paranasal sinuses are well aerated. IMPRESSION: Mild small vessel ischemic changes without evidence of an acute intracranial pathology. DICTATED BY: TERRANCE SCOTT MD DATE/TIME DICTATED:05/10/16 1441 SERVICE DATE: 05/10/16- EXAM TYPE: US - [id number] DOPPLER EXAMINATION: BILATERAL DUPLEX CAROTID ULTRASOUND CLINICAL INDICATION: 65-year-old former cigarette smoker with a history of diabetes and hypertension with presenting with transient aphasia. Evaluate for a carotid artery stenosis. COMPARISON: MRI of the head performed on 05/11/2016. TECHNIQUE: Real-time ultrasound and Doppler techniques (integrating B-mode 2D vascular images, Doppler spectral analysis and color flow Doppler imaging) were utilized to interrogate the extracranial carotid and vertebral arteries bilaterally FINDINGS: On the RIGHT, there is extensive echogenic plaque with shadowing present at the carotid bifurcation. In the distal CCA, the peak systolic velocity is 72 cm/sec. In the proximal ICA, the peak systolic velocity is 92 cm/sec, and the end diastolic velocity is 25 cm/sec. In the distal ICA, the peak systolic velocity is 141 cm/sec, and the end diastolic velocity is 35 cm/sec. In the proximal ECA, the peak systolic velocity is 77 cm/sec. On the LEFT, there is moderate echogenic plaque which present at the carotid bifurcation. In the distal CCA, the peak systolic velocity is 88 cm/sec. In the proximal ICA, the peak systolic velocity is 77 cm/sec, and the end diastolic velocity is 23 cm/sec. In the proximal ECA, the peak systolic velocity is 97 cm/sec. The vertebral arteries show antegrade flow with normal waveforms bilaterally. IMPRESSION: 1. The proximal right internal carotid artery shows no hemodynamically significant (0-49%) stenosis. There may be a moderate stenosis more distally in the right internal carotid artery in the 50-79% range, though tortuosity can cause flow accelerations. In light of concern for a recent TIA, consider a MRA or CTA for further evaluation. 2. The left internal carotid artery shows no hemodynamically significant (0-49%) stenosis. DICTATED BY: KAEL ROWLAND MD DATE/TIME DICTATED:05/11/16834 ECHOCARDIOGRAM FINDINGS Left Ventricle Normal global left ventricular size, wall thickness, systolic function with no obvious regional wall motion abnormalities. Left ventricular ejection fraction is estimated at >65 %. Abnormal relaxation filling pattern of the left ventricle for age (stage 1 diastolic dysfunction). Right Ventricle The right ventricle is normal in size and function. Right Atrium The right atrium is normal in size. Left Atrium The left atrium is normal in size. The interatrial septum is intact. Mitral Valve Mild thickening/calcification of the mitral valve leaflets. Trace mitral regurgitation. Aortic Valve Diffuse thickening (sclerosis) of the aortic valve cusps without reduced excursion. No aortic stenosis. No aortic regurgitation. Tricuspid Valve The tricuspid valve is normal in structure and function. There is trace tricuspid regurgitation. Pulmonary artery systolic pressure is normal. Pulmonic Valve Structurally normal pulmonic valve. There is no pulmonic regurgitation. Pericardium Normal pericardium without effusion. No pleural effusion. Great Vessels Normal aortic root dimension. The aortic arch and great vessels are well seen and are normal. CONCLUSIONS Normal global left ventricular size, wall thickness, systolic function with no obvious regional wall motion abnormalities. The left atrium is normal in size. Mild thickening/calcification of the mitral valve leaflets. Trace mitral regurgitation. Diffuse thickening (sclerosis) of the aortic valve cusps without reduced excursion. No aortic stenosis. Pulmonary artery systolic pressure is normal. David Adams M.D. (Electronically Signed) Final Date: 12 May 2016 09:01 EXAM TYPE: US - US-RENAL/KIDNEY EXAMINATION: US RETROPERITONEAL COMPLETE (RENAL) CLINICAL INFORMATION: Acute on chronic kidney injury. Elevated creatinine level. COMPARISON: CT scan of the abdomen and pelvis dated 02/27/2008. TECHNIQUE: Real-time imaging of the kidneys and bladder. FINDINGS: RIGHT KIDNEY: 10.4 x 4.2 x 4.7 cm (SAG x AP x TRV). The kidney is normal in size, contour, and echogenicity. Renal cortical thickness is normal. No calculi or suspicious focal parenchymal lesions. Benign-appearing thin-walled anechoic 1.8 x 1.5 x 1.6 cm cortical cyst is seen in the upper pole of the right kidney. Second 0.8 x 0.5 x 0.7 cm partially exophytic cortical cyst is seen in the lower pole of the right kidney. No hydronephrosis. LEFT KIDNEY: 11.1 x 5.4 x 4.5 cm (SAG x AP x TRV). The kidney is normal in size, contour, and echogenicity. Renal cortical thickness is normal. Benign-appearing exophytic cortical cyst is seen in the upper pole, measuring 1.3 x 1.0 x 0.9 cm. Additional exophytic mid left renal cortical cyst is seen, measuring 5.1 x 3.0 x 3.5 cm with thin posterior eccentric and incomplete septation. In the lower pole of the left kidney, a 1.6 x 1.2 x 1.7 cm cyst is seen. There is a 0.4 cm nonobstructing calcification in the lower pole of the left kidney. No suspicious focal parenchymal lesions. No hydronephrosis. BLADDER: Decompressed and not adequately seen. Bilaterally, ureteral jets are not demonstrated. IMPRESSION: 1. Bilateral benign-appearing cysts. 2. Nonobstructing lower pole left renal calcification. 3. No evidence of hydronephrosis. 4. Bladder inadequately assessed. DICTATED BY: HOLLY MESA,ROBERT George DATE/TIME DICTATED:05/11/161620 Disposition Summary Disposition Principal Diagnosis: TIA Additional Diagnosis: Acute on chronic kidney injury Discharge Disposition: home or self care Discharge Instructions General Discharge Information Code Status: Full Code Patient's Diet: Heart healthy Patient's Activity: As tolerated Follow-Up Instructions/Appts: You were seen/treated for: Transient Ischemic Attack Watch for these problems: - Neurological deficits - slurred speech/weakness/numbness/visual changes - Palpitations Special Instructions: - Please follow up with Dr. Hylton to set up holter monitor - Please follow up with vascular surgery, Dr. Huynh, for carotid follow up - Please follow up with neurology as needed - Please follow up with PCP regarding medications changes (added plavix, gemfibrozil). - Please follow up magnesium level as it was low during this admission. Medications at Discharge Discharge Medications: Continue taking these medications: Ezetimibe (Zetia) 10 MG TABLET 1 Tablet ORAL Every Morning Qty = 90 Comments: NOT GIVEN IN HOSPITAL Albuterol Sulfate (Proair Hfa) 90 MCG HFA.AER.AD 2 Puff Inhale through mouth as needed for ASTHMA Comments: NOT GIVEN IN HOSPITAL Losartan Potassium (Losartan Potassium) 50 MG TABLET 1 Tablet ORAL Every Morning Qty = 30 Comments: NOT GIVEN IN HOSPITAL Citalopram Hydrobromide (Citalopram HBr) 20 MG TABLET 1 Tablet ORAL Every night Qty = 90 Comments: NOT GIVEN IN HOSPITAL Metformin HCl (Metformin HCl) 1,000 MG TABLET 1 Tablet ORAL TWICE DAILY Qty = 60 Comments: NOT GIVEN IN HOSPITAL Montelukast Sodium (Montelukast Sodium) 10 MG TABLET 1 Tablet ORAL DAILY Qty = 30 Comments: NOT GIVEN IN HOSPITAL Pantoprazole Sodium (Pantoprazole Sodium) 40 MG TABLET.DR 1 Tablet ORAL DAILY BEFORE BREAKFAST Qty = 90 Comments: NOT GIVEN IN HOSPITAL Multivitamin (Multi-Day Vitamins) 1 EACH TABLET 1 Tablet ORAL DAILY Comments: NOT GIVEN IN HOSPITAL Cholecalciferol (Vitamin D3) (Vitamin D) 2,000 UNIT CAPSULE 1 Capsule ORAL DAILY Comments: Last Taken: 05/12/16 Time: 9 AM Cyanocobalamin (Vitamin B-12) 1,000 MCG TABLET 1 Tablet ORAL DAILY Comments: Last Taken: 05/12/16 Time: 9 AM Start taking the following new medications: Clopidogrel Bisulfate (Plavix) 75 MG TABLET 1 Tablet ORAL DAILY Qty = 60 No Refills Comments: Last Taken: 05/12/16 Time: 9 AM Gemfibrozil (Gemfibrozil) 600 MG TABLET 1 Tablet ORAL TWICE DAILY Qty = 60 No Refills Comments: NOT GIVEN IN HOSPITAL Magnesium Oxide (Magnesium) 400 MG CAPSULE 1 Capsule ORAL TWICE DAILY Qty = 2 No Refills Instructions: Please take one at 10pm tonight, and one tomorrow morning. Recheck magnesium as outpatient. Comments: Last Taken: 05/12/16 Time: 2 PM Atorvastatin Calcium (Lipitor) 40 MG TABLET 1 Tablet ORAL DAILY Qty = 10 No Refills Instructions: Please follow up with Dr. Juárez regarding continuing this. Copies To: DI MESA,MYRTLE; JUNITO MESA,[facility]; ARON MESA,WILDER Ortiz; JOSE MESA,Saad NELSON; JONATAN MESA,BRIANNE Attending MD Review Statement Documenting Attending: GAL DYER M.D Other Findings: I have reviewed the discharge summary
[2016-06-24] MEDS ORDERED: ZYRTEC10 M3 PO (08:06)
[2016-06-24] MEDS ORDERED: PREDNISONE20 M1 PO (08:07)
[2016-06-24] MEDS ORDERED: DAILY MULTIPLE1 EACH PO (08:08)
== END 2016-05-12 16:16 | DRG 69 ==
LOC: ENRESERVDT → ENRESERVTM → ERH 13:53 → ERHI 15:27 → 1NO 15:27 → ENPENDDIS 15:27 → 1NO 18:12
PROVIDERS: Emergency Medicine; Student in an Organized Health Care Education/Training Program; ADMIT Internal Medicine
DX: G45.9 Transient cerebral ischemic attack, unspecified (principal); N17.9 Acute kidney failure, unspecified; E11.22 Type 2 diabetes mellitus with diabetic chronic kidney disease; G90.2 Horner's syndrome; N18.3 Chronic kidney disease, stage 3 (moderate); E11.9 Type 2 diabetes mellitus without complications; I12.9 Hypertensive chronic kidney disease with stage 1 through stage 4 chronic kidney disease, or unspecified chronic kidney disease; E78.5 Hyperlipidemia, unspecified; J45.909 Unspecified asthma, uncomplicated; Z82.3 Family history of stroke; Z79.84 Long term (current) use of oral hypoglycemic drugs
CPT/HCPCS: 1NSP; 70551; 70555; 70557; 84133; 84300; 36415; 76775; 81001; 82436; 82570; 93005; 93010; 93306; 97116-GO; 97161-GP; 97165-GO; J3490; J7042

== ENCOUNTER 2016-05-26 13:36 | Inpatient (IN) | payer OTHER ==
[~2016-05-26] VITALS: Ht 162.6 cm; Wt 86.2 kg
[~2016-05-26 13:36] MED LIST: ATORVASTATIN CA40 M1 PO; CITALOPRAM HBR20 MG PO; GEMFIBROZIL600 M1 PO; LIPITOR40 M1 PO; LOSARTAN POTASS50 M1 PO; MAGNESIUM400 M1 PO; METFORMIN HCL1000 M1 PO; MONTELUKAST SOD10 M1 PO; MULTI-DAY VITA1 EACH PO; PANTOPRAZOLE SO40 M1 PO; PLAVIX75 M1 PO; PROAIR HFA8.5 GM INH; VITAMIN B-121000 MC3 PO; VITAMIN D2000 UNIT PO; ZETIA10 M1 PO
--- NOTE | 2016-05-26 13:42 | NUR ---
65 Y/O FEMALE C/O HEADACHE ON TOP OF R SIDED HEAD, ONSET 1 HOUR AGO. STATES SHE ATE LUNCH AND THEN VOMITED, FELT "SWEATY AND CLAMMY". STATES SHE CONTINUES TO FEEL NAUSEOUS BUT IS NO LONGER SWEATY. WAS ADMITTED TO HOSPITAL ON THE FOR TIA. FAMILY MEMBER STATES "YOU DONT SEEM RIGHT TO ME". SPEAKING CLEARLY WITH NO NEURO DEFICITS NOTED. STRONG AND EQUAL HAND GRASPS NOTED. SPEECH CLEAR. TAKEN TO ROOM FOR EVAL.
--- NOTE | 2016-05-26 14:04 | NUR ---
PT EVALUATED BY JORGE MARX AND SENT TO CAT SCAN BY BUD.
--- NOTE | 2016-05-26 14:07 | ED HEADACHE COMPLAINT ---
History of Present Illness General Chief Complaint: General Adult Stated Complaint: HX OF TIA RT SIDED FACIAL NUMBNESS Source: patient, family, old records Exam Limitations: no limitations Allergies Coded Allergies: aspirin (RASH ALL OVER, RINGING IN THE EARS 05/10/16) erythromycin base (RASH ALL OVER 05/10/16) melon (HANDS SWELL, ITCH, THROAT ITCHES 05/10/16) Triage Note: 65 Y/O FEMALE C/O HEADACHE ON TOP OF R SIDED HEAD, ONSET 1 HOUR AGO. STATES SHE ATE LUNCH AND THEN VOMITED, FELT "SWEATY AND CLAMMY". STATES SHE CONTINUES TO FEEL NAUSEOUS BUT IS NO LONGER SWEATY. WAS ADMITTED TO HOSPITAL ON THE FOR TIA. FAMILY MEMBER STATES "YOU DONT SEEM RIGHT TO ME". SPEAKING CLEARLY WITH NO NEURO DEFICITS NOTED. STRONG AND EQUAL HAND GRASPS NOTED. SPEECH CLEAR. TAKEN TO ROOM FOR EVAL. Triage Nurses Notes Reviewed? yes HPI: Approximately one hour ago patient had a fairly sudden onset of right-sided headache associated with nausea and vomiting 1. It was moderate to severe. She took Tylenol, headache decreased to a 3. It is constant at this time. She had mild right-sided facial tingling without any numbness. Her states that her speech was slightly slower than usual but has returned to normal now. Currently patient is largely asymptomatic except for the 3 out of 10 headache. She has no nausea no vomiting at this time. No numbness or weakness in the extremities. No expressive aphasia. No gait or coordination trouble. She was admitted here 2 weeks ago for TIA, had MRI CT scan carotid ultrasounds, also had a short run of V. tach. She was seen by Dr. Peter from vascular surgeon, Dr. Perez from neurology, Dr. Prado from cardiology, Jaime Cat MD from nephrology, she has followed up with all these doctors except neurology since her discharge. She had a Holter monitor on as well, does not know the results at this time. She denied any fluttering in her chest or pain in her chest. She was started on Plavix for TIAs and has been taking this (CHE DANG) Vital Signs & Intake/Output Vital Signs & Intake/Output Vital Signs Date Time Temp Pulse Resp B/P Pulse O2 O2 Flow FiO2 Ox Delivery Rate 05/26 2053 98.3 85 20 144/96 93 Room Air 05/27 2023 98.7 92 18 135/79 93 05/26 1719 88 18 131/78 94 05/26 1519 96.5 97 16 131/72 95 Room Air 05/26 1339 97.1 103 16 117/81 98 Room Air Reconcile Medications Albuterol Sulfate (Proair Hfa) 90 MCG HFA.AER.AD 2 PUF INH PRN ASTHMA ( Reported) Amlodipine Besylate 5 MG TABLET 1 TAB PO DAILY Blood pressure Atorvastatin Calcium (Lipitor) 10 MG TABLET 1 TAB PO DAILY CHOLESTEROL ( Reported) Cholecalciferol (Vitamin D3) (Vitamin D) 2,000 UNIT CAPSULE 1 CAP PO DAILY SUPPLEMENT (Reported) Citalopram Hydrobromide (Citalopram HBr) 20 MG TABLET 1 TAB PO QPM MENTAL HEALTH (Reported) Clopidogrel Bisulfate (Plavix) 75 MG TABLET 1 TAB PO DAILY TIA Cyanocobalamin (Vitamin B-12) 1,000 MCG TABLET 1 TAB PO DAILY SUPPLEMENT ( Reported) Ezetimibe (Zetia) 10 MG TABLET 1 TAB PO QAM CHOLESTEROL (Reported) Gemfibrozil 600 MG TABLET 1 TAB PO BID high triglyceride Magnesium Oxide (Magnesium) 400 MG CAPSULE 1 CAP PO TID SUPPLEMENT (Reported) Metformin HCl 1,000 MG TABLET 1 TAB PO BID DM (Reported) Montelukast Sodium 10 MG TABLET 1 TAB PO DAILY ASTHMA/ALLERGIES (Reported) Multivitamin (Multi-Day Vitamins) 1 EACH TABLET 1 TAB PO DAILY SUPPLEMENT ( Reported) Pantoprazole Sodium 40 MG TABLET. 1 TAB PO DAILY AC GI (Reported) (MIGUEL ANGEL MESA,LATASHA Anguiano) Past History Travel History Traveled to [place] past 21 day No Medical History Any Pertinent Medical History? see below for history Neurological: ELY'S syndrome EENT: NONE Cardiovascular: hypertension, hyperlipidemia Respiratory: asthma Gastrointestinal: NONE Hepatic: NONE Renal: chronic kidney disease Musculoskeletal: CERVICAL DISEASE Psychiatric: NONE Endocrine: diabetes Blood Disorders: NONE Cancer(s): NONE CAPABILITY LEAD/Reproductive: NONE Influenza Vaccine: 11/28/15 Surgical History Surgical History: unobtainable Psychosocial History Who do you live with Spouse What is your primary language Maori Tobacco Use: Quit >30 days ago Family History Family History, If Any: MOTHER FH: stroke, Onset: 50-60. Hx Contributory? No (ARASELI PATEL,CHE) Review of Systems Review of Systems Constitutional: Reports: see HPI. Eyes: Reports: no symptoms. Ears, Nose, Throat, Mouth: Reports: no symptoms. Respiratory: Reports: no symptoms. Cardiovascular: Reports: no symptoms. Gastrointestinal/Abdominal: Reports: no symptoms. Genitourinary: Reports: no symptoms. Musculoskeletal: Reports: no symptoms. Skin: Reports: no symptoms. Neurological/Psychological: Reports: see HPI. Hematologic/Endocrine: Reports: no symptoms. Endocrine: Reports: no symptoms. Immunologic/Allergic: Reports: no symptoms. All Other Systems: Reviewed and Negative (CHE DANG) Physical Exam Physical Exam Cranial Nerves: normal hearing, normal speech, PERRL Comments: Well-developed well-nourished person in no acute distress HEENT: Normal EENT exam, extraocular motion intact, no nystagmus. Right pupil less reactive than left which is chronic for patient Nose is atraumatic. Pharynx normal. No swelling or edema. Neck: Supple, no lymphadenopathy, normal range of motion without pain or tenderness Back: Nontender, no CVA tenderness. Full range of motion Cardiovascular: Regular rate and rhythms no murmurs, normal JVP Respiratory: Chest nontender. No respiratory distress. Breath sounds clear to auscultation bilaterally Abdomen: Soft, nontender nondistended, no appreciable organomegaly. Normal bowel sounds. No ascites Extremity: No edema, no calf tenderness to palpation, normal and equal pulses. Neuro: Alert oriented x3, motor sensory normal, cranial nerves II through XII grossly intact. Mild slight residual Ely's syndrome with right lateral eyelid drooping which is chronic for patient. Greenhouse Worker strength normal coordination intact negative pronator drift Skin: No appreciable rash on exposed skin, skin is warm and dry. Psych: Mood and affect is normal, memory and judgment is normal. Core Measures Severe Sepsis Present: No Septic Shock Present: No (CHE DANG) Progress Differential Diagnosis: carotid dissection, cav sinus thromb, cluster YOUNG, encephalitis, IC mass/tumor, intracranial Hem., meningitis, migraine YOUNG, musculoskeletal pain, sinusitis, SSS thrombosis, subarach. Hem., tension YOUNG, temporal arteritis, TMJ syndrome, viral cephalgia Diagnostic Imaging: Viewed by Me: CT Scan. Discussed w/RAD: CT Scan. Radiology Impression: PATIENT: SALAS CHEN PRESENT AGE: 65 PATIENT ACCOUNT NO: [id number] : 49 LOCATION: [facility] ORDERING PHYSICIAN: CHE PATEL SERVICE DATE: 05/26/161402 EXAM TYPE: CAT - CT HEAD WO IV CONTRAST EXAMINATION: CT HEAD WITHOUT CONTRAST CLINICAL INFORMATION: TIA for bleed. COMPARISON: CT head 05/10/2016. MRA head 05/12/2016. TECHNIQUE: Contiguous axial imaging was performed from the skull base to vertex without intravenous administration of contrast. DLP: 600 mGy-cm FINDINGS: There is no evidence of acute intracranial hemorrhage or territorial infarction. No abnormal mass effect or midline shift is seen. Gerber to white matter differentiation is well preserved. No extra-axial fluid collections are identified. The ventricles are normal in size. There is no abnormal attenuation within the brain parenchyma. The osseous structures and soft tissues are normal. The mastoid air cells and visualized portions of the paranasal sinuses are well aerated. IMPRESSION: Acute intracranial process seen. No major change from 05/10. DICTATED BY: MELISSA MESAVAISHNAVI DATE/TIME DICTATED:05/26/161444 CUSTOMER ENGAGEMENT REPRESENTATIVE:JOYCELYN DATE/TIME TRANSCRIBED:05/26/161444 Initial ED EKG: NSR, rate (90), nonspecific ST T wave chg (LEAD III) Prior EKG: unchanged Rhythm Strip: normal sinus rhythm Comments: We'll CT head evaluate for CVA versus bleed as patient was recently started on Plavix 2 weeks ago[address]iscuss[address] with [address]. Bush, we will order an ESR to evaluate for temporal arteritis. ESR is 11, doubt temporal arteritis with an ESR is 11. Patient does have a creatinine of 2.7 which is up from 1.8 8 days ago and her potassium is elevated to 6.1. She does not have EKG changes. Give her IV fluids and Kayexalate and admission to the hospital. She was seen by Dr. Gunn, ER attending. (ARASELI PATEL,CHE) Plan of Care: Orders Procedure Date/time Status Consistent Carbohydrate 3 05/27 B Active CBC WITHOUT DIFFERENTIAL 05/27 06 Active BASIC ELECTROLYTES PLUS BUN&CR 05/27 06 Active MAGNESIUM 05/26 2114 Active Pathway - chart 05/26 2099 Active House Staff 05/26 2099 Active Code Status 05/26 2099 Active BASIC ELECTROLYTES PLUS BUN&CR 05/27 2055 Active Intake & Output 05/26 2008 Active Add-on Test (ER Only) 05/26 2006 Active Add-on Test (ER Only) 05/26 195 Active Admit to inpatient 05/26 191 Active Misc Message 05/26 190 Active ED Holding Orders 05/26 190 Active Vital Signs 05/26 190 Active Code Status 05/26 190 Complete Patient Data 05/26 183 Active TROPONIN LEVEL 05/26 1538 Complete SERUM OSMOLALITY 05/26 1538 Complete MAGNESIUM 05/26 1521 Complete WESTERGREN SED RATE 05/26 1521 Complete COMPREHENSIVE METABOLIC PANEL 05/26 1521 Complete CBC WITHOUT DIFFERENTIAL 05/26 1521 Complete EKG 05/26 1402 Active TRC EVALUATION (GEN) 05/26 UNK Active Lab Add-on Test 05/26 UNK Active VTE Mechanical Prophylaxis 05/26 UNK Active FingerStick- Glucose 05/26 UNK Active MRI-HEAD W/O ELANA 05/26 UNK Active Current Medications Sig/Allan Start time Last Medication Dose Stop Time Status Admin Montelukast Sodium 10 MG 2200 05/27 2200 AC (Singulair) Clopidogrel Bisulfate 75 MG DAILY 05/27 1000 AC (Plavix) Cyanocobalamin 1,000 MCG DAILY 05/27 1000 AC (Vitamin B12) Multivitamins 1 TAB DAILY 05/27 1000 AC Therapeutic (Theragran-M Vitamins Tabs) Insulin Aspart 0 TIDAC 05/27 0800 AC (NovoLOG) Omeprazole 40 MG DAILY AC 05/27 0700 AC (Prilosec) Atorvastatin Calcium 10 MG QPM 05/26 2200 AC (Lipitor) Citalopram 20 MG QPM 05/26 2200 AC Hydrobromide (Celexa) Gemfibrozil 600 MG BID 05/26 2200 AC (Lopid 600 MG Tab) Heparin Sodium 5,000 UNIT Q8 05/26 2200 AC (Porcine) Magnesium Oxide 400 MG TID 05/26 2200 AC (Mag-Ox) Trimethobenzamide HCl 200 MG TID PRN 05/26 2130 AC (Tigan) Sodium Chloride 1,000 ML Q13H 05/26 2115 AC (Normal Saline 0.9%) 05/27 2314 Acetaminophen 650 MG Q6 PRN 05/26 2100 AC (Tylenol) Tramadol HCl 50 MG Q8P PRN 05/26 2100 AC (Ultram) Laboratory Tests 03/02/17 2115: Anion Gap 16, Estimated GFR 19 L, BUN/Creatinine Ratio 18.8, Magnesium Pending 05/26/16 1538: Anion Gap 16, Estimated GFR 18 L, BUN/Creatinine Ratio 18.9, Glucose 106 H, Serum Osmolality 307 H, Calcium 10.9 H, Magnesium 1.6, Total Bilirubin 0.5, AST 29, ALT 33, Alkaline Phosphatase 82, Troponin I < 0.01, Total Protein 8.0, Albumin 4.6, Globulin 3.4, Albumin/Globulin Ratio 1.4, CBC w Diff NO MAN DIFF REQ, RBC 4.23, MCV 87.4, MCH 29.5, RDW 13.9, MPV 8.3, Gran % 56.8, Lymphocytes % 27.4, Monocytes % 9.3, Eosinophils % 5.6 H, Basophils % 0.9, Absolute Granulocytes 3.9, Absolute Lymphocytes 1.9, Absolute Monocytes 0.6, Absolute Eosinophils 0.4, Absolute Basophils 0.1, PUBS MCHC 33.8, ESR Westergren 11 Departure Departure Disposition: HOME OR SELF CARE Condition: Stable Clinical Impression Primary Impression: LEEANNE (acute kidney injury) Secondary Impressions: Headache Qualifiers: Headache type: unspecified Headache chronicity pattern: acute headache Intractability: not intractable Qualified Code: R51 - Headache Hyperkalemia Referrals: JUNITO MESA,LAYA (PCP/Family) Departure Forms: Customer Survey General Discharge Information Admission Note Documentation of Exam: Documentation of any treatments & extenuating circumstances including Concerns Regarding Discharge (functional status, medication knowledge or non-compliance, living conditions, etc.) that warrant an admission rather than observation: Patient with chronic renal disease, had creatinine checked 8 days ago with 1.8, today is 2.7, she has acute kidney injury along with hyperkalemia at 6.1 and a headache with nausea and vomiting. She requires IV fluids and to monitor her potassium and renal function, likely nephrology consult. (CHE DANG) Departure Prescriptions: Current Visit Scripts Amlodipine Besylate 1 TAB PO DAILY #30 TAB Admission Note Spoke With: ROMELIA CEJA MD Documentation of Exam: Documentation of any treatments & extenuating circumstances including Concerns Regarding Discharge (functional status, medication knowledge or non-compliance, living conditions, etc.) that warrant an admission rather than observation: see above note PA/WORKFORCE MANAGEMENT COORDINATOR Co-Sign Statement Statement: ED Attending supervision documentation- [x] I saw and evaluated the patient. I have also reviewed all the pertinent lab results and diagnostic results. I agree with the findings and the plan of care as documented in the PA's/WORKFORCE MANAGEMENT COORDINATOR's documentation. [] I have reviewed the ED Record and agree with the PA's/WORKFORCE MANAGEMENT COORDINATOR's documentation. [] Additions or exceptions (if any) to the PAs/WORKFORCE MANAGEMENT COORDINATOR's note and plan are summarized below: [] (MIGUEL ANGEL MESA,LATASHA Anguiano)
--- NOTE | 2016-05-26 14:52 | CT SCAN REPORT ---
EXAMINATION: CT HEAD WITHOUT CONTRAST CLINICAL INFORMATION: TIA for bleed. COMPARISON: CT head 05/10/2016. MRA head 05/12/2016. TECHNIQUE: Contiguous axial imaging was performed from the skull base to vertex without intravenous administration of contrast. DLP: 600 mGy-cm FINDINGS: There is no evidence of acute intracranial hemorrhage or territorial infarction. No abnormal mass effect or midline shift is seen. Gerber to white matter differentiation is well preserved. No extra-axial fluid collections are identified. The ventricles are normal in size. There is no abnormal attenuation within the brain parenchyma. The osseous structures and soft tissues are normal. The mastoid air cells and visualized portions of the paranasal sinuses are well aerated. IMPRESSION: Acute intracranial process seen. No major change from 05/10/2016.
--- NOTE | 2016-05-26 15:15 | NUR ---
PT REEVALUATED BY JORGE MARX AND MEDICATED WITH TYLENOL PER EMAR FOR HEADACHE.
[2016-05-26 15:48] LABS: ABSOLUTE BASOPHIL COUNT 0.1 /CUMM (0.0-0.2); ABSOLUTE EOSINOPHIL COUNT 0.4 /CUMM (0.0-0.7); ABSOLUTE GRANULOCYTE CT 3.9 /CUMM (1.4-6.5); ABSOLUTE LYMPH COUNT 1.9 /CUMM (1.2-3.4); ABSOLUTE MONOCYTE COUNT 0.6 /CUMM (0.10-0.60); BASOPHIL % 0.9 % (0.0-2.0); EOSINOPHIL % 5.6 % (0-5); GRANULOCYTE % 56.8 % (42.2-75.2); MEAN CORPUSCULAR HGB 29.5 PG (27.0-31.0); MEAN CORPUSCULAR HGB CONC 33.8 G/DL (33.0-37.0); MEAN CORPUSCULAR VOLUME 87.4 FL (81.0-99.0); MEAN PLATELET VOLUME 8.3 FL (7.4-10.4); PLATELET COUNT 309 /CUMM (130-400); RBC DISTRIBUTION WIDTH 13.9 % (11.5-14.5); RED BLOOD CELL CT 4.23 /CUMM (4.20-5.40); WHITE BLOOD CELL COUNT 6.9 /CUMM (4.8-10.8)
--- NOTE | 2016-05-26 15:53 | NUR ---
PT SENT TO THE LAB SST,TWO LAV,BLUE,[place]ÓPE[place]
--- NOTE | 2016-05-26 16:23 | NUR ---
CRITICAL TEST RESULTS [id number] SALAS CHEN 65 F TESTS AND RESULTS: POTASSIUM 6.1 Results received and read back by: JEREMIE TOBIAS Results received date and time: 05/26/16 1624 The following provider was notified of the results, and read the results back: JORGE MARX Notified date and time: 05/26/16 at 1624
[2016-05-26] MEDS ORDERED: LIPITOR10 M1 PO (16:42)
[2016-05-26] MEDS ORDERED: MAGNESIUM400 M1 PO (16:44)
--- NOTE | 2016-05-26 17:22 | NUR ---
IV EST LF G22, NS INFUSING PER EMAR. PT MEDICATED WITH KAYEXALATE PER EMAR. VSS. FAMILY AT BEDSIDE.
--- NOTE | 2016-05-26 18:28 | NUR ---
AMBULATING TO/FROM RESTROOM WITH STEADY GAIT, FOLLOWING AND READY TO ASSIST BUT PT NOT REQUIRING ASSISTANCE.
--- NOTE | 2016-05-26 19:26 | NUR ---
PT TO ROOM 174 BED 2
--- NOTE | 2016-05-26 19:55 | History & Physical ---
KIM MESA,[facility] 05/26/161953: General Information and HPI Source of Information: patient, family History of Present Illness: Ms. Avila is a 65 year old lady with a PMH of recent TIA, well controlled DM type 2, HTN, HLD, right sided Ely s/p cervical infusion in Jan 2016, NSAID- induced nephrotoxicity, and asthma last admitted two weeks ago for TIA, BIBA for a headache followed by 3 episodes of NBNB emesis and tinglingness in the right sided face. Patient started having a right-sided headache yesterday at about 2-3 out of 10. She did not take any medications for it. Per the daugther and patient sounded slightly sluggish yesterday but it has resolved. However this morning her headache worsened to 6-7 out of 10. Shortly after lunch around 1PM patient had 3 episodes of emesis consisting of the food content. Patient had turkey and salads for lunch which the also had with no issues. 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 Patient is currently asymptomatic with no headache, dizziness, n/v, diarrhea. She denies any episodes of slurred speech, motor weakness, gait imbalance. She admits to having mild tinglingness in the right-sided face although she reportedly has it occassionally due [place]) In the ED patient was found to have K of 6.1 and Cr of 2.7. She was given a liter bolus of NS and Kayaxlate. Patient also received Tylenol with relief in headache. Since her discharge from [facility] in 2016 patient has been medically stable with no changes in her health. At her follow up with Dr. Jones her renal fx improved to a creatinine of 1.8 with potassium of 5.5. Her Mg was low at 1.1 and her Mg rx was increased to TID. She was told to come back in October. Patient was placed on Holter monitoring by Dr. Hylton, and the results are pending. Patient is scheduled to follow up with Dr. Renae and Dr. Huynh in the next couple of weeks. On patient lives with her . She is fully independent. Denies tobacco use currenty (last time in college). Drinks EtOH occassionally. PCP - Dr. Juárez Nephro - Dr. Cat Cardio - Dr. Hylton Neuro - Dr. Renae Vascular - Dr. Huynh Full code. Allergies/Medications Allergies: Coded Allergies: aspirin (RASH ALL OVER, RINGING IN THE EARS 05/10/16) erythromycin base (RASH ALL OVER 05/10/16) melon (HANDS SWELL, ITCH, THROAT ITCHES 05/10/16) Home Med list Albuterol Sulfate (Proair Hfa) 90 MCG HFA.AER.AD 2 PUF INH PRN ASTHMA ( Reported) Atorvastatin Calcium (Lipitor) 10 MG TABLET 1 TAB PO DAILY CHOLESTEROL ( Reported) Cholecalciferol (Vitamin D3) (Vitamin D) 2,000 UNIT CAPSULE 1 CAP PO DAILY SUPPLEMENT (Reported) Citalopram Hydrobromide (Citalopram HBr) 20 MG TABLET 1 TAB PO QPM MENTAL HEALTH (Reported) Clopidogrel Bisulfate (Plavix) 75 MG TABLET 1 TAB PO DAILY TIA Cyanocobalamin (Vitamin B-12) 1,000 MCG TABLET 1 TAB PO DAILY SUPPLEMENT ( Reported) Ezetimibe (Zetia) 10 MG TABLET 1 TAB PO QAM CHOLESTEROL (Reported) Gemfibrozil 600 MG TABLET 1 TAB PO BID high triglyceride Losartan Potassium 50 MG TABLET 1 TAB PO QAM HTN (Reported) Magnesium Oxide (Magnesium) 400 MG CAPSULE 1 CAP PO TID SUPPLEMENT (Reported) Metformin HCl 1,000 MG TABLET 1 TAB PO BID DM (Reported) Montelukast Sodium 10 MG TABLET 1 TAB PO DAILY ASTHMA/ALLERGIES (Reported) Multivitamin (Multi-Day Vitamins) 1 EACH TABLET 1 TAB PO DAILY SUPPLEMENT ( Reported) Pantoprazole Sodium 40 MG TABLET.DR 1 TAB PO DAILY AC GI (Reported) Past History Travel History Traveled to [place] past 21 day No Medical History Neurological: ELY'S syndrome EENT: NONE Cardiovascular: hypertension, hyperlipidemia Respiratory: asthma Gastrointestinal: NONE Hepatic: NONE Renal: chronic kidney disease Musculoskeletal: CERVICAL DISEASE Psychiatric: NONE Endocrine: diabetes Blood Disorders: NONE Cancer(s): NONE ACQUISITION EDITOR/Reproductive: NONE Influenza Vaccine: 11/28/15 Surgical History Surgical History: unobtainable Past Family/Social History Family History Relations & Conditions if any MOTHER FH: stroke, Onset: 50-60. Psychosocial History Where do you live? Home Who Do You Live With? spouse Primary Language: Kazakh Smoking Status: Former Smoker (college) ETOH Use: occasional use Functional Ability ADLs Independent: dressing, eating, toileting, bathing. Ambulation: independent IADLs Independent: shopping, housework, finances, food prep, telephone, transportation , medication admin. Review of Systems Review of Systems Constitutional: Reports: see HPI. Exam & Diagnostic Data Last 24 Hrs of Vital Signs/I&O Vital Signs Date Time Temp Pulse Resp B/P Pulse O2 O2 Flow FiO2 Ox Delivery Rate 05/26 2053 98.3 85 20 144/96 93 Room Air 05/27 2023 98.7 92 18 135/79 93 05/26 1719 88 18 131/78 94 05/26 1519 96.5 97 16 131/72 95 Room Air 05/26 1339 97.1 103 16 117/81 98 Room Air Intake & Output 05/26 1600 05/26 0800 05/26 0000 Intake Total Output Total Balance Patient 86.183 kg Weight Physical Exam General Appearance Alert, Oriented X3, Cooperative, No Acute Distress Skin No Rashes, No Breakdown, No Significant Lesion HEENT Atraumatic, EOMI, Pupil constricted and nonreactive to light on the right side, Dry MM Neck Supple, No JVD, +2 Carotid Pulse wo Bruit, No LAD Cardiovascular Regular Rate, Normal S1, Normal S2, No Murmurs, Gallops, Rubs Lungs Clear to Auscultation, Normal Air Movement Assessment/Plan Assessment: Ms. Avila is a 65 year old lady with a PMH of recent TIA, well controlled DM type 2, HTN, HLD, right sided Ely s/p cervical infusion in Jan 2016, NSAID- induced nephrotoxicity, and asthma admitted for a headache with tinglingness and 3 episodes of emesis, concerning for a questionable TIA. # TIA Her headache with mild tinglingness in the right sided face is concerning for recurrent TIA in the setting of her recent episode of TIA about 2 weeks ago. Her tinglingness may be more accountable to the existing Ely's syndrome but it is hard to differentiate. Her hadache has resolved completely with Tylenol. CT head did not show any acute findings. * Neuro consulted, appreciate recs * Resume lipitor and antihypertensives at home doses * Continue Plavix * Follow MRI without contrast * Touch base with Dr. Clark regarding Holter monitoring results * Appreciate PT/OT recs * Control headache with Tylenol and Ultram # LEEANNE Patient presents with a creatinine of 2.7 this admission. Most likely pre-renal 2/2 dehydration from vomiting. Patient received 1L bolus of NS in ED. * Recheck renal function in the morning * Courtesy call to Dr. Cat, consider consultation if Cr remains elevated * Encourage adequate hydration * Avoid nephrotoxins # Hypertension * Hold home med losartan 50 mg for now # Hyperlipidemia * Hold home med ezetimibe * Resume lipitor 40, watch for myalgia # DM type II * Hold home med metformin * Novoling SSI with accuchecks # Hypomagnesia * Resume Mag Ox 400mg PO TID (recently increased by Dr. Cat) # Asthma * Albuterol prn * Singulair 10 daily # Diet: diabetic # Mild pain pathway # DVTppx: SQ Heparin # Full code As Ranked By This Provider Problem List: 1. TIA (transient ischemic attack) 2. LEEANNE (acute kidney injury) 3. Hyperkalemia 4. Headache Qualifiers Headache type: unspecified Headache chronicity pattern: acute headache Intractability: not intractable Qualified Code: R51 - Headache Core Measures/Miscellaneous Acute Coronary Syndrome ACS Diagnosis: No Cerebrovascular Accident CVA/TIA Diagnosis: No Congestive Heart Failure CHF Diagnosis: No Venous Thromboembolism VTE Risk Factors: Age > 40, Obesity No [facility] VTE prophylaxis d/t: No contraindications No VTE Pharm Prophylaxis d/t: No contraindications VTE Diagnosis: No VTE Type: NONE VTE Confirmed by (Test): NONE Severe Sepsis Severe Sepsis Present: No Septic Shock Septic Shock Present: No Miscellaneous Documentation Attending Case Discussed With: ROMELIA CEJA MD Primary Care Physician: JUNITO MESA,LAYA Patient sees these Specialists See HPI Level of Patient Care: Telemetry AUDIE LENNON 05/26/16 2141: Resident Review Statement Resident Statement: examined this patient, discussed with equine internship, agreed with equine internship, amended to note Other Findings: 65 -year-old lady with past medical history of type 2 diabetes, TIA on Plavix, CK D stage III, hypertension, hyperlipidemia, anxiety depression,, 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 Patient reported she started having mild headache at noonshe took Tylenol and ate her lunch however after that she developed at least 3 episodes of nonbloody vomiting and a headache increased to 6 out of 10, right sided, with photosensitivity, mild tingling on the face. She felt cold and clammy came to the hospital. patient denies dizziness, abdominal pain, diarrhea, fever, chills, chest pain, cough, palpitation, tingling and numbness anywhere else . Vital signs were unremarkable and noted above . Physical exam as noted above and is notable for right-sided myosis and right eyelid mild drop due to Ely syndrome. 5 out of 5 strength throughout Unremarkable chest/heart/abdominal exam Potassium was 6.1, creatinine 2.7 (baseline 2), calcium 10.9, serum osmolality 307 CBC was unremarkable EKG showed normal sinus rhythm, 94, QTC 486, left axis deviation CT of the head did not show any acute pathology Assessment and plan #LEEANNE on CKD /hyperkalemia/hypercalcemia -Possibly due to multiple episode of vomiting -She already received 1 L of normal saline with continue with 75 normal saline for 2 bags -Kayexalate in ER given we will check BEP at 22:00 and next day -We will check magnesium as well -Hold Cozaar and metformin -Tigan for nausea due to long QTC -Tylenol and tramadol for headache -If AK I did not improve in 24 hours we will consider consulting nephrology #Rule out TIA -CT was unremarkable check MRI tomorrow -Neurology consult tomorrow -Continue Plavix and a statin -Patient will see Dr. Peter in one week(for left-sided carotid stenosis) -Patient had holter and monitoring by Dr. Hylton (results are pending). we will ask in the morning as a curbside #Diabetes -Hold metformin, sliding scale insulin, acute checks, diabetic diet. 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 Patient took Tylenol with some relief but vomited thereafter. Headache was better after second dose of Tylenol in ER. After an episode of vomiting patient was cold and clammy, mildly elevated blood pressure at work. While in ER she started to notice mild right-sided facial tingling, it improved after some time. According to Her , her speech was slightly slower than usual but has returned to normal now. Patient had nap in ER after Tylenol and all of her symptoms are much better including headache, nausea and tingling. No LOC, seizure, confusion, any weakness, chest pain, palpitations. Patient was recently admitted for TIA, found to have moderate carotid stenosis bilaterally and ventricular arrhythmia. Was worked up with Holter monitor for 24 hours and was cleared by cardiology. And is scheduled appointment with vascular surgeon. Vitals: Afebrile, pulse, RR, blood pressure, O2 saturation within acceptable range. On examination: A O 3, no distress. Neck supple, no lymphadenopathy, no JVD. Right eyelid droop. No new focal neurological deficits. No sensation loss on face. CVS: S1-S2, RRR. RS: Clear to auscultate bilaterally. Abdomen: Soft, and he, indeed, bowel sounds present. No pedal edema, peripheral pulses and perfusion normal. Labs: CBC unremarkable. Patient has progression of 6.1 and creatinine 2.7 at presentation with bicarbonate of 24 and anion gap of 16. Head CT: No major changes. EKG: No acute changes. A and P #1 right-sided headache associated with transient tingling on face. Patient may have had complicated migraine, which is relieved after Tylenol and some sleep. Currently asymptomatic. But in event of recent TIA and bilateral carotid stenosis, would rule out any new CVA. Continue telemetry monitoring, neurochecks , may benefit from MRI without contrast. No further workup as patient has recently 2-D echo, Holter monitoring, and carotid Dopplers. #2 acute on chronic kidney disease with hyperkalemia : Continue gentle hydration , strict I's and O's, hold metformin, losartan repeat BMP in 4 hour, patient has received takes it late in ER. No acute EKG changes, no severe acidosis. #3 HTN: Consider changing losartan to amlodipine, given her hyperkalemia and recurrent LEEANNE on CKD. #4 DM: Hold metformin, continue sliding scale insulin. #5 continue rest of her medications with albuterol, atorvastatin, Celexa, Plavix , montelukast, PPI. #6 DVT prophylaxis with heparin
--- NOTE | 2016-05-26 20:08 | NUR ---
REPORT GIVEN TO JESU MARTINEZ TO TELE. DISTRIBUTION CALLED FOR TRANSPORT.
[2016-05-26 20:54] VITALS: BP 144/96
--- NOTE | 2016-05-27 05:15 | Admission Certification ---
Admission Certification Certification Statement - As attending physician, I certify that at the time of - admission, based on clinical presentation, severity of - symptoms, need for further diagnostic testing and - therapeutic interventions, and risk of adverse outcomes - without in-hospital treatment, in my clinical assessment, - this patient requires an acute hospital stay for a minimum - of two nights or longer. I have also considered psychsocial - factors such as support system, advanced age, financial - issues, cognitive issues, and failed out-patient treatments, - past re-admission history, safety of patient, and lack of - compliance as applicable. Specific rationale supporting this admission is: LEEANNE on chronic kidney disease, hyperkalemia, facial tingling
--- NOTE | 2016-05-27 06:54 | PN- Housestaff ---
THONY MESA,[facility] 05/27/16 0653: Subjective Follow-up For: possible tia vomiting with hyperkalemia and leeanne on ckd Tele-Events Since Last Visit: SR 76-86 with PVCs Subjective: pt was seen this morning, she reports that the pins and needles sensation on her cheeks only lasted a few minutes while she had the headache yesterday. denies recurrent symptoms, weakness, numbness, speech difficulty. She denies visual changes during the headache. Headache has resolved with tylenol. her k has improved with kayexelate, from 6.1 to now 4.4 his kidney functions has also improved with iv hydration from 51/2.7 to 42/2.4 noted drop in h/h from 12.5 to 11.7, most likely dilutional. no nausea or vomiting. Dr. Hylton aware that the pt has been admitted and will check with his office if the results of her recent 24-hour holter monitor . pt has not had a chance to follow up with neurology or vasc surgery as outpatient yet, but already has an appointment set up. Review of Systems Constitutional: Denies: chills, fever. EENTM: Denies: visual changes. Cardiovascular: Denies: chest pain. Respiratory: Denies: short of breath. Gastrointestinal: Denies: abdominal pain. Objective Last 24 Hrs of Vital Signs/I&O Vital Signs Date Time Temp Pulse Resp B/P Pulse O2 O2 Flow FiO2 Ox Delivery Rate 05/27 0808 98.0 76 18 122/80 97 Room Air 05/26 2053 98.3 85 20 144/96 93 Room Air 05/27 2023 98.7 92 18 135/79 93 05/26 1719 88 18 131/78 94 05/26 1519 96.5 97 16 131/72 95 Room Air 05/26 1339 97.1 103 16 117/81 98 Room Air Intake & Output 05/27 1600 05/27 0800 05/27 0000 Intake Total 1250 1575 Output Total 800 Balance 450 1575 Intake, IV 600 1075 Intake, Oral 650 500 Number 0 1 Bowel Movements Output, Urine 800 Patient 86.183 kg Weight Physical Exam General Appearance: Alert, Oriented X3, Cooperative, No Acute Distress Skin: No Significant Lesion HEENT: Atraumatic Cardiovascular: Regular Rate, Normal S1, Normal S2 Lungs: Clear to Auscultation, Normal Air Movement Abdomen: Normal Bowel Sounds, Soft, No Tenderness Neurological: Normal Speech, Strength at 5/5 X4 Ext, Normal Tone, Sensation Intact Extremities: No Edema Current Medications: Current Medications Sig/Allan Start time Last Medication Dose Route Stop Time Status Admin Acetaminophen 650 MG Q6 PRN 05/26 2100 AC PO Acetaminophen 0 .STK-MED ONE 05/26 1516 DC PO Acetaminophen 650 MG ONCE ONE 05/26 1515 DC 05/26 PO 05/26 1516 1515 Atorvastatin Calcium 10 MG QPM 05/26 2200 AC 05/26 PO 2211 Citalopram 20 MG QPM 05/26 2200 AC 05/26 Hydrobromide PO 2211 Clopidogrel Bisulfate 75 MG DAILY 05/27 1000 AC PO Cyanocobalamin 1,000 MCG DAILY 05/27 1000 AC PO Gemfibrozil 600 MG BID 05/26 2200 AC 05/26 PO 2211 Heparin Sodium 5,000 UNIT Q8 05/26 2200 AC (Porcine) SC Insulin Aspart 0 TIDAC 05/27 0800 AC SC Magnesium Oxide 400 MG TID 05/26 2200 AC 05/26 PO 2211 Montelukast Sodium 10 MG 2200 05/27 2200 AC PO Multivitamins 1 TAB DAILY 05/27 1000 AC Therapeutic PO Omeprazole 40 MG DAILY AC 05/27 0700 AC 05/27 PO 0632 Sodium Chloride 1,000 ML Q13H 05/26 2115 AC 05/26 IV 05/27 2314 2211 Sodium Chloride 1,000 ML BOLUS ONE 05/26 1700 DC 05/26 IV 05/26 1759 1722 Sodium Polystyrene 0 .STK-MED ONE 05/26 1706 DC Sulfonate .ROUTE Sodium Polystyrene 60 ML ONCE ONE 05/26 1700 DC 05/26 Sulfonate PO 05/26 1701 1722 Tramadol HCl 50 MG Q8P PRN 05/26 2100 AC PO Trimethobenzamide HCl 200 MG TID PRN 05/26 2130 DC IM Last 24 Hrs of Lab/Mik Results Last 24 Hrs of Labs/Mics: Laboratory Tests 05/27/16 0630: Anion Gap 13, Estimated GFR 20 L, BUN/Creatinine Ratio 17.5, Magnesium 1.6, CBC w Diff NO MAN DIFF REQ, RBC 3.89 L, MCV 88.4, MCH 30.0, RDW 14.0, MPV 8.7, Gran % 34.4 L, Lymphocytes % 42.0, Monocytes % 11.7 H, Eosinophils % 10.7 H, Basophils % 1.2, Absolute Granulocytes 2.2, Absolute Lymphocytes 2.7, Absolute Monocytes 0.7 H, Absolute Eosinophils 0.7, Absolute Basophils 0.1, PUBS MCHC 34.0 05/26/16 2115: Anion Gap 16, Estimated GFR 19 L, BUN/Creatinine Ratio 18.8, Magnesium 1.5 L 05/26/16 1538: Anion Gap 16, Estimated GFR 18 L, BUN/Creatinine Ratio 18.9, Glucose 106 H, Serum Osmolality 307 H, Calcium 10.9 H, Magnesium 1.6, Total Bilirubin 0.5, AST 29, ALT 33, Alkaline Phosphatase 82, Troponin I < 0.01, Total Protein 8.0, Albumin 4.6, Globulin 3.4, Albumin/Globulin Ratio 1.4, CBC w Diff NO MAN DIFF REQ, RBC 4.23, MCV 87.4, MCH 29.5, RDW 13.9, MPV 8.3, Gran % 56.8, Lymphocytes % 27.4, Monocytes % 9.3, Eosinophils % 5.6 H, Basophils % 0.9, Absolute Granulocytes 3.9, Absolute Lymphocytes 1.9, Absolute Monocytes 0.6, Absolute Eosinophils 0.4, Absolute Basophils 0.1, PUBS MCHC 33.8, ESR Westergren 11 Assessment/Plan Assessment: Ms. 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 K improved to 4.4 with kayexelate. Kidney functions also improved to cr 2.4 with IV hydration. 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 Her tinglingness may be more accountable to the existing Jam's syndrome but it is hard to differentiate. - Her hadache has resolved completely with Tylenol. - CT head did not show any acute findings. * Neuro consulted, appreciate recs * Resume lipitor and antihypertensives at home doses * Continue Plavix * Follow MRI without contrast * Cardiology, Dr Hylton consulted * Appreciate PT/OT recs * Control headache with Tylenol and Ultram * Informed Dr. Huynh that pt is in the hospital (she did not get a chance to follow up with him as outpatient for carotid stenosis as outpatient, but has an appointment set up). I discussed the imaging findings with him and he will follow up with her as outpatient. Informed him that CTA could not be done because her cr > 2.5 * Not taking aspirin due to NSAID induced nephrotoxicity * Continue on telemetry # LEEANNE on CKD - Patient presents with a creatinine of 2.7 this admission. Most likely pre- renal secondary to dehydration from vomiting, vs worsening of kidney functions due to medications (losartan,metformin) vs diabetic and hypertensive nephropathy. - Patient received 1L bolus of NS in ED. * Monitor kidney functions * Courtesy call to Dr. Cat * Placed nephrology consult on input regarding switching losartan to another antihypertensive and metformin to another antihyperglycemic. Do no start losartan until her cr at baseline, can give amlodipine 5mg daily if blood pressure will be an isue. * Encourage adequate hydration. Continue NS @ 75ml/hr * Avoid nephrotoxins * Nutrition consult on low potassium and # Hyperkalemia (resolved) most likely due to worsening kidney functions, might also cause her tingling - K was 6.1 on admission, improved to 4.4 with kayexelate * Monitor K # Hypertension * Hold home med losartan 50 mg for now # Hyperlipidemia * Hold home med ezetimibe * Resume lipitor 10, watch for myalgia # DM type II * Hold home med metformin * Novolin SSI with accuchecks * Consider endocrinology referral # Hypomagnesia - mag 1.6 * Resume Mag Ox 400mg PO TID (recently increased by Dr. Cat) # Asthma * Albuterol prn * Singulair 10 daily # Diet: diabetic # Mild pain pathway # DVTppx: SQ Heparin # Full code Consults: Neuro, nephro, cardio, vascular, nutrition, PT, OT Labs: BEP for hyperkalemia and LEEANNE on CKD Problem List: 1. LEEANNE (acute kidney injury) 2. Hyperkalemia 3. 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 Resting comfortably not in acute distress. No issues overnight. No events on telemetry monitoring. Denies any nausea vomiting. Denies abdominal pain. Denies any focal muscle weakness. According to the patient she developed sudden onset of vomiting while at work. She came in for evaluation due to complaints of malaise. On questioning she reported transient episode of numbness over her right cheek. This has since resolved. She denies any motor weakness. On examination she is alert of her 3. She has no muscle weakness on exam. She has no paresthesias. She is noted to have an acute elevation in her creatinine level on presentation as well as acute elevation of her potassium level. Problems: 1. Acute on chronic kidney disease. 2. Hyperkalemia 3. Vague complaint of facial paresthesia 4. Carotid artery stenosis likely bilateral. 5. Diabetes Mellitus Recommendations: -Hold her ARB therapy in view of her worsening renal function and hyperkalemia -Continue IV hydration. -Nephrology follow-up appreciated. -MRI shows no acute pathology. Her history does not appear consistent with a TIA episode. -Patient is to follow-up with the vascular surgery service as an outpatient. -Patient to follow up with her PCP about her metformin given her elevated creatinine. -Start patient on Amlodipine in place of her losartan.
[2016-05-27 08:08] VITALS: BP 122/80
[2016-05-27 08:30] LABS: ABSOLUTE BASOPHIL COUNT 0.1 /CUMM (0.0-0.2); ABSOLUTE EOSINOPHIL COUNT 0.7 /CUMM (0.0-0.7); ABSOLUTE GRANULOCYTE CT 2.2 /CUMM (1.4-6.5); ABSOLUTE LYMPH COUNT 2.7 /CUMM (1.2-3.4); ABSOLUTE MONOCYTE COUNT 0.7 /CUMM (0.10-0.60); BASOPHIL % 1.2 % (0.0-2.0); EOSINOPHIL % 10.7 % (0-5); GRANULOCYTE % 34.4 % (42.2-75.2); HEMATOCRIT 34.4 % (37-47); MEAN CORPUSCULAR VOLUME 88.4 FL (81.0-99.0); MEAN PLATELET VOLUME 8.7 FL (7.4-10.4); PLATELET COUNT 276 /CUMM (130-400); RED BLOOD CELL CT 3.89 /CUMM (4.20-5.40); WHITE BLOOD CELL COUNT 6.3 /CUMM (4.8-10.8)
--- NOTE | 2016-05-27 10:22 | Cons- Cardiology ---
General Information and HPI Consulting Request Date of Consult: 05/27/16 Requested By: ROMELIA CEJA MD Reason for Consult: Possible TIA; rule out arrhythmia Source of Information: patient, family, old records Exam Limitations: no limitations History of Present Illness: The patient is a 65-year-old female who is known to me from a recent office consult. She was recently admitted to the hospital with symptoms of a TIA. She was scheduled to see myself and vascular surgery as an outpatient for further evaluation and possible intervention for carotid disease. At my office, the patient had a Holter monitor performed, the results which are not yet available. She has not seen vascular surgery as of today. The patient return to work on . While at work, she had an episode of acute onset of nausea, vomiting, headache, sweatiness and fatigue. She ultimately went to the emergency room. Her blood pressure was noted to be elevated initially. Her only neurologic symptom was a sense of numbness of her right cheek. Over time her symptoms resolved. Showed no further episodes of nausea or vomiting. As far as I can tell, there was no documented bradycardia or tachycardia arrhythmia. Today the patient is feeling fine. Allergies/Medications Allergies: Coded Allergies: aspirin (RASH ALL OVER, RINGING IN THE EARS 05/10/16) erythromycin base (RASH ALL OVER 05/10/16) melon (HANDS SWELL, ITCH, THROAT ITCHES 05/10/16) Home Med List: Albuterol Sulfate (Proair Hfa) 90 MCG HFA.AER.AD 2 PUF INH PRN ASTHMA ( Reported) Atorvastatin Calcium (Lipitor) 10 MG TABLET 1 TAB PO DAILY CHOLESTEROL ( Reported) Cholecalciferol (Vitamin D3) (Vitamin D) 2,000 UNIT CAPSULE 1 CAP PO DAILY SUPPLEMENT (Reported) Citalopram Hydrobromide (Citalopram HBr) 20 MG TABLET 1 TAB PO QPM MENTAL HEALTH (Reported) Clopidogrel Bisulfate (Plavix) 75 MG TABLET 1 TAB PO DAILY TIA Cyanocobalamin (Vitamin B-12) 1,000 MCG TABLET 1 TAB PO DAILY SUPPLEMENT ( Reported) Ezetimibe (Zetia) 10 MG TABLET 1 TAB PO QAM CHOLESTEROL (Reported) Gemfibrozil 600 MG TABLET 1 TAB PO BID high triglyceride Losartan Potassium 50 MG TABLET 1 TAB PO QAM HTN (Reported) Magnesium Oxide (Magnesium) 400 MG CAPSULE 1 CAP PO TID SUPPLEMENT (Reported) Metformin HCl 1,000 MG TABLET 1 TAB PO BID DM (Reported) Montelukast Sodium 10 MG TABLET 1 TAB PO DAILY ASTHMA/ALLERGIES (Reported) Multivitamin (Multi-Day Vitamins) 1 EACH TABLET 1 TAB PO DAILY SUPPLEMENT ( Reported) Pantoprazole Sodium 40 MG TABLET. 1 TAB PO DAILY AC GI (Reported) Past History Travel History Traveled to [place] past 21 day No Medical History Blood Transfusion Hx: No Neurological: ELY'S syndrome EENT: NONE Cardiovascular: hypertension, hyperlipidemia Respiratory: asthma Gastrointestinal: NONE Hepatic: NONE Renal: chronic kidney disease Musculoskeletal: CERVICAL DISEASE Psychiatric: NONE Endocrine: diabetes Blood Disorders: NONE Cancer(s): NONE CERTIFIED PARALEGAL/Reproductive: NONE Surgical History Surgical History: unobtainable Family History Relations & Conditions If Any: MOTHER FH: stroke, Onset: 50-60. Psychosocial History Where Do You Live? Home Who Do You Live With? spouse Primary Language: Citizen Of [place] Smoking Status: Former Smoker (college) ETOH Use: occasional use Functional Ability ADLs Independent: dressing, eating, toileting, bathing. Ambulation: independent IADLs Independent: shopping, housework, finances, food prep, telephone, transportation , medication admin. Exam & Diagnostic Data Vital Signs and I&O Vital Signs Date Time Temp Pulse Resp B/P Pulse O2 O2 Flow FiO2 Ox Delivery Rate 05/27 08 98.0 76 18 122/80 97 Room Air 05/26 2053 98.3 85 20 144/96 93 Room Air 05/27 2023 98.7 92 18 135/79 93 05/26 1719 88 18 131/78 94 05/26 1519 96.5 97 16 131/72 95 Room Air 05/26 1339 97.1 103 16 117/81 98 Room Air Intake & Output 05/27 1600 05/27 0800 05/27 0000 05/26 1600 05/26 0800 05/26 0000 Intake Total 1250 1575 Output Total 800 Balance 450 1575 Intake, IV 600 1075 Intake, Oral 650 500 Number 0 1 Bowel Movements Output, Urine 800 Patient 190 lb 190 lb Weight Physical Exam: Well-developed, well-nourished, mildly overweight white female. No acute distress at the present time. HEENT: Normal Neck: JVP normal, carotid up stroke bilaterally. No audible bruits. No masses. No thyromegaly. Chest: Clear to auscultation and percussion bilaterally Heart: Regular S1, S2. 1 to 2/6 systolic murmur left lower sternal border Abdomen: Normal Extremities: Unremarkable. Labs/Mik Results: Laboratory Tests 05/27 05/26 0630 2115 Chemistry Sodium (137 - 145 mmol/L) 141 139 Potassium (3.5 - 5.1 mmol/L) 4.4 4.8 Chloride (98 - 107 mmol/L) 103 103 Carbon Dioxide (22 - 30 mmol/L) 25 21 L Anion Gap (5 - 16) 13 16 BUN (7 - 17 mg/dL) 42 H 47 H Creatinine (0.5 - 1.0 mg/dL) 2.4 H 2.5 H Estimated GFR (>60 ml/min) 20 L 19 L BUN/Creatinine Ratio (7 - 25 %) 17.5 18.8 Magnesium (1.6 - 2.3 mg/dL) 1.6 1.5 L Hematology CBC w Diff NO MAN DIFF REQ WBC (4.8 - 10.8 /CUMM) 6.3 RBC (4.20 - 5.40 /CUMM) 3.89 L Hgb (12.0 - 16.0 G/DL) 11.7 L Hct (37 - 47 %) 34.4 L MCV (81.0 - 99.0 FL) 88.4 MCH (27.0 - 31.0 PG) 30.0 RDW (11.5 - 14.5 %) 14.0 Plt Count (130 - 400 /CUMM) 276 MPV (7.4 - 10.4 FL) 8.7 Gran % (42.2 - 75.2 %) 34.4 L Lymphocytes % (20.5 - 51.1 %) 42.0 Monocytes % (1.7 - 9.3 %) 11.7 H Eosinophils % (0 - 5 %) 10.7 H Basophils % (0.0 - 2.0 %) 1.2 Absolute Granulocytes (1.4 - 6.5 /CUMM) 2.2 Absolute Lymphocytes (1.2 - 3.4 /CUMM) 2.7 Absolute Monocytes (0.10 - 0.60 /CUMM) 0.7 H Absolute Eosinophils (0.0 - 0.7 /CUMM) 0.7 Absolute Basophils (0.0 - 0.2 /CUMM) 0.1 PUBS MCHC (33.0 - 37.0 G/DL) 34.0 03/ 1538 Chemistry Sodium (137 - 145 mmol/L) 138 Potassium (3.5 - 5.1 mmol/L) 6.1 *H Chloride (98 - 107 mmol/L) 98 Carbon Dioxide (22 - 30 mmol/L) 24 Anion Gap (5 - 16) 16 BUN (7 - 17 mg/dL) 51 H Creatinine (0.5 - 1.0 mg/dL) 2.7 H Estimated GFR (>60 ml/min) 18 L BUN/Creatinine Ratio (7 - 25 %) 18.9 Glucose (65 - 99 mg/dL) 106 H Serum Osmolality (285 - 295 MOSM/KG) 307 H Calcium (8.4 - 10.2 mg/dL) 10.9 H Magnesium (1.6 - 2.3 mg/dL) 1.6 Total Bilirubin (0.2 - 1.3 mg/dL) 0.5 AST (14 - 36 U/L) 29 ALT (9 - 52 U/L) 33 Alkaline Phosphatase (<127 U/L) 82 Troponin I (< 0.11 ng/ml) < 0.01 Total Protein (6.3 - 8.2 g/dL) 8.0 Albumin (3.5 - 5.0 g/dL) 4.6 Globulin (1.9 - 4.2 gm/dL) 3.4 Albumin/Globulin Ratio (1.1 - 2.2 %) 1.4 Hematology CBC w Diff NO MAN DIFF REQ WBC (4.8 - 10.8 /CUMM) 6.9 RBC (4.20 - 5.40 /CUMM) 4.23 Hgb (12.0 - 16.0 G/DL) 12.5 Hct (37 - 47 %) 37.0 MCV (81.0 - 99.0 FL) 87.4 MCH (27.0 - 31.0 PG) 29.5 RDW (11.5 - 14.5 %) 13.9 Plt Count (130 - 400 /CUMM) 309 MPV (7.4 - 10.4 FL) 8.3 Gran % (42.2 - 75.2 %) 56.8 Lymphocytes % (20.5 - 51.1 %) 27.4 Monocytes % (1.7 - 9.3 %) 9.3 Eosinophils % (0 - 5 %) 5.6 H Basophils % (0.0 - 2.0 %) 0.9 Absolute Granulocytes (1.4 - 6.5 /CUMM) 3.9 Absolute Lymphocytes (1.2 - 3.4 /CUMM) 1.9 Absolute Monocytes (0.10 - 0.60 /CUMM) 0.6 Absolute Eosinophils (0.0 - 0.7 /CUMM) 0.4 Absolute Basophils (0.0 - 0.2 /CUMM) 0.1 PUBS MCHC (33.0 - 37.0 G/DL) 33.8 ESR Westergren (0 - 20 MM) 11 Diagnostic Data Other Results Head CT: FINDINGS: There is no evidence of acute intracranial hemorrhage or territorial infarction. No abnormal mass effect or midline shift is seen. Gerber to white matter differentiation is well preserved. No extra-axial fluid collections are identified. The ventricles are normal in size. There is no abnormal attenuation within the brain parenchyma. The osseous structures and soft tissues are normal. The mastoid air cells and visualized portions of the paranasal sinuses are well aerated. IMPRESSION: Acute intracranial process seen. No major change from 05/10/2016. Assessment/Plan Assessment/Plan Assessment: 1. Right-sided headache with associated right facial numbness, nausea, vomiting , and elevated blood pressure 2. Acute on chronic renal insufficiency 3. Hyperkalemia 4. Hypertension 5. Diabetes 6. History of recent TIA the Recommendation: -Keep the patient on telemetry for now. -I will obtain a copy of the patient's recent Holter monitor as Unasyn is available. -Await follow-up neurology input -Await nephrology input -MRI pending -Otherwise, can continue current treatment as per the medical service. Consult Acknowledgment - Thank you for your consult request.
--- NOTE | 2016-05-27 12:09 | MRI REPORT ---
EXAMINATION: MR BRAIN WITHOUT CONTRAST CLINICAL INFORMATION: Headache, tingling in face (right-sided) assess for TIA. COMPARISON: MRI scan of the head 05/13/[address] scan of the head 05/26/2016. TECHNIQUE: MRI of the brain without contrast was obtained using routine sequences. FINDINGS: No diffusion abnormalities are identified to suggest an acute or subacute infarct. No mass effect or midline shift is seen. The ventricles are normal in size. The study redemonstrates scattered areas of increased T2 and FLAIR signal in the periventricular and subcortical white matter and in the bernie, most consistent with chronic microvascular ischemic changes. Lacunar infarcts are redemonstrated in the bernie and basal ganglia. No extra-axial fluid collections are seen. The cerebellum appears normal. No pathologic magnetic susceptibility artifact is identified on the gradient refocused acquisition. The craniovertebral junction, marrow signal, and midline structures are normal. The major intracranial flow-voids at the level of the akhiok of Kumar are preserved. The dural venous sinus flow-voids are maintained. There is mucoperiosteal thickening in the right maxillary and bilateral ethmoid sinuses. The mastoid air cells are well-aerated. IMPRESSION: 1. There are no acute bleeds or infarcts. 2. The study redemonstrates sequelae of chronic microvascular ischemic disease and lacunar infarcts.
--- NOTE | 2016-05-27 12:58 | Cons- Nephrology ---
General Information and HPI Consulting Request Date of Consult: 05/27/16 Requested By: ROMELIA CEJA MD Reason for Consult: LEEANNE on CKD Source of Information: patient, family, old records Exam Limitations: no limitations History of Present Illness: The patient is a 65-year-old woman with a past medical history most significant for stage 4 chronic kidney disease with a baseline creatinine ~1.7-2.2 thought to be 2/2 HTN/DM/NSAID use, diabetes on the hypertension, hyperlipidemia, recent admission for TIA who presents for nausea and vomiting. The patient follows with Dr. Cat for her chronic kidney disease. She was seen in the office on Tuesday 05/23 following up her recent hospitalization. At this visit, magnesium oxide was increased to 400 mg 3 times a day. No other changes are made to her regimen. Yesterday, the patient developed a headache associated with 3 episodes of vomiting. Her by mouth intake was okay going into the episode. She denied dizziness, or lightheadedness. Of note, she is on losartan 50 mg for her blood pressure. On presentation, her blood pressure was 117/81 (her BP is generally well controlled and was 120/70 in the office on Monday). Her labs were notable for potassium of 6.1, bicarbonate 24, creatinine 2.7, magnesium 1.6, albumin 4.6. Speaking to the patient, no dietary indiscretion in terms of potassium. Her losartan has been held and she's been getting intravenous fluid. Her creatinine has since been trended to 2.4 and her potassium is 4.4 (with Kayexalate). Her blood pressure not on medication this morning was 122/80. He was having some tingling of her face for which she underwent a CT and an MRI. There were no acute bleeds or infarcts on the MRI. The MRI did demonstrate straight sequelae of chronic microvascular ischemic disease and lacunar infarcts which are not new. Of note, patient has minimal proteinuria with 0.24g/g on her last ratio on 05/18. Also of note, she underwent a renal U/S during her most recent admission on which did not demonstrate hydronephrosis - R kidney 10.4cm and L kidney 11.1 with b/l benign-appearing cysts. Allergies/Medications Allergies: Coded Allergies: aspirin (RASH ALL OVER, RINGING IN THE EARS 05/10/16) erythromycin base (RASH ALL OVER 05/10/16) melon (HANDS SWELL, ITCH, THROAT ITCHES 05/10/16) Home Med List: Albuterol Sulfate (Proair Hfa) 90 MCG HFA.AER.AD 2 PUF INH PRN ASTHMA ( Reported) Atorvastatin Calcium (Lipitor) 10 MG TABLET 1 TAB PO DAILY CHOLESTEROL ( Reported) Cholecalciferol (Vitamin D3) (Vitamin D) 2,000 UNIT CAPSULE 1 CAP PO DAILY SUPPLEMENT (Reported) Citalopram Hydrobromide (Citalopram HBr) 20 MG TABLET 1 TAB PO QPM MENTAL HEALTH (Reported) Clopidogrel Bisulfate (Plavix) 75 MG TABLET 1 TAB PO DAILY TIA Cyanocobalamin (Vitamin B-12) 1,000 MCG TABLET 1 TAB PO DAILY SUPPLEMENT ( Reported) Ezetimibe (Zetia) 10 MG TABLET 1 TAB PO QAM CHOLESTEROL (Reported) Gemfibrozil 600 MG TABLET 1 TAB PO BID high triglyceride Losartan Potassium 50 MG TABLET 1 TAB PO QAM HTN (Reported) Magnesium Oxide (Magnesium) 400 MG CAPSULE 1 CAP PO TID SUPPLEMENT (Reported) Metformin HCl 1,000 MG TABLET 1 TAB PO BID DM (Reported) Montelukast Sodium 10 MG TABLET 1 TAB PO DAILY ASTHMA/ALLERGIES (Reported) Multivitamin (Multi-Day Vitamins) 1 EACH TABLET 1 TAB PO DAILY SUPPLEMENT ( Reported) Pantoprazole Sodium 40 MG TABLET. 1 TAB PO DAILY AC GI (Reported) Current Medications: Current Medications Sig/Allan Start time Last Medication Dose Route Stop Time Status Admin Acetaminophen 650 MG Q6 PRN 05/26 2100 AC PO Acetaminophen 0 .STK-MED ONE 05/26 1516 DC PO Acetaminophen 650 MG ONCE ONE 05/26 1515 DC 05/26 PO 05/26 1516 1515 Atorvastatin Calcium 10 MG QPM 05/26 2200 AC 05/26 PO 2211 Citalopram 20 MG QPM 05/26 2200 AC 05/26 Hydrobromide PO 2211 Clopidogrel Bisulfate 75 MG DAILY 05/27 1000 AC 05/27 PO 0948 Cyanocobalamin 1,000 MCG DAILY 05/27 1000 AC 05/27 PO 0948 Gemfibrozil 600 MG BID 05/26 2200 AC 05/27 PO 0948 Heparin Sodium 5,000 UNIT Q8 05/26 2200 AC (Porcine) SC Insulin Aspart 0 TIDAC 05/27 0800 AC SC Magnesium Oxide 400 MG TID 05/26 2200 AC 05/27 PO 0948 Montelukast Sodium 10 MG 2200 05/27 2200 AC PO Multivitamins 1 TAB DAILY 05/27 1000 AC 05/27 Therapeutic PO 0948 Omeprazole 40 MG DAILY AC 05/27 0700 AC 05/27 PO 0632 Sodium Chloride 1,000 ML Q13H 05/26 2115 AC 05/27 IV 05/27 2314 0948 Sodium Chloride 1,000 ML BOLUS ONE 05/26 1700 DC 05/26 IV 05/26 1759 1722 Sodium Polystyrene 0 .STK-MED ONE 05/26 1706 DC Sulfonate .ROUTE Sodium Polystyrene 60 ML ONCE ONE 05/26 1700 DC 05/26 Sulfonate PO 05/26 1701 1722 Tramadol HCl 50 MG Q8P PRN 05/26 2100 AC PO Trimethobenzamide HCl 200 MG TID PRN 05/26 2130 DC IM Review of Systems Review of Systems: Complete 14 point ROS neg except as per HPI Past History Travel History Traveled to [place] past 21 day No Medical History Blood Transfusion Hx: No Neurological: ELY'S syndrome EENT: NONE Cardiovascular: hypertension, hyperlipidemia Respiratory: asthma Gastrointestinal: NONE Hepatic: NONE Renal: chronic kidney disease Musculoskeletal: CERVICAL DISEASE Psychiatric: NONE Endocrine: diabetes Blood Disorders: NONE Cancer(s): NONE 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 Psychosocial History Where Do You Live? Home Who Do You Live With? spouse Primary Language: [place] Smoking Status: Former Smoker (college) ETOH Use: occasional use Functional Ability ADLs Independent: dressing, eating, toileting, bathing. Ambulation: independent IADLs Independent: shopping, housework, finances, food prep, telephone, transportation , medication admin. Exam & Diagnostic Data Vital Signs and I&O Vital Signs Date Time Temp Pulse Resp B/P Pulse O2 O2 Flow FiO2 Ox Delivery Rate 05/28 807 98.0 76 18 122/80 97 Room Air 05/26 2053 98.3 85 20 144/96 93 Room Air 05/27 2023 98.7 92 18 135/79 93 05/26 1719 88 18 131/78 94 05/26 1519 96.5 97 16 131/72 95 Room Air 05/26 1339 97.1 103 16 117/81 98 Room Air Intake & Output 05/27 1600 05/27 0400 05/26 1600 05/26 0400 05/25 1600 05/25 0400 Intake Total 1250 1575 Output Total 1000 Balance 250 1575 Intake, IV 600 1075 Intake, Oral 650 500 Number 0 1 Bowel Movements Output, Urine 1000 Patient 190 lb 190 lb Weight Physical Exam: Gen - NAD Head - NCAT Eyes - anicteric sclera, EOMI Neck - JVP not up CV - RRR Chest - clear Abd - soft, nontender Ext - no edema Skin - no rash Neuro - AOX3, grossly nonfocal Results Pertinent Lab Results: Laboratory Tests 05/27 05/26 0630 2115 Chemistry Sodium (137 - 145 mmol/L) 141 139 Potassium (3.5 - 5.1 mmol/L) 4.4 4.8 Chloride (98 - 107 mmol/L) 103 103 Carbon Dioxide (22 - 30 mmol/L) 25 21 L Anion Gap (5 - 16) 13 16 BUN (7 - 17 mg/dL) 42 H 47 H Creatinine (0.5 - 1.0 mg/dL) 2.4 H 2.5 H Estimated GFR (>60 ml/min) 20 L 19 L BUN/Creatinine Ratio (7 - 25 %) 17.5 18.8 Magnesium (1.6 - 2.3 mg/dL) 1.6 1.5 L Hematology CBC w Diff NO MAN DIFF REQ WBC (4.8 - 10.8 /CUMM) 6.3 RBC (4.20 - 5.40 /CUMM) 3.89 L Hgb (12.0 - 16.0 G/DL) 11.7 L Hct (37 - 47 %) 34.4 L MCV (81.0 - 99.0 FL) 88.4 MCH (27.0 - 31.0 PG) 30.0 RDW (11.5 - 14.5 %) 14.0 Plt Count (130 - 400 /CUMM) 276 MPV (7.4 - 10.4 FL) 8.7 Gran % (42.2 - 75.2 %) 34.4 L Lymphocytes % (20.5 - 51.1 %) 42.0 Monocytes % (1.7 - 9.3 %) 11.7 H Eosinophils % (0 - 5 %) 10.7 H Basophils % (0.0 - 2.0 %) 1.2 Absolute Granulocytes (1.4 - 6.5 /CUMM) 2.2 Absolute Lymphocytes (1.2 - 3.4 /CUMM) 2.7 Absolute Monocytes (0.10 - 0.60 /CUMM) 0.7 H Absolute Eosinophils (0.0 - 0.7 /CUMM) 0.7 Absolute Basophils (0.0 - 0.2 /CUMM) 0.1 PUBS MCHC (33.0 - 37.0 G/DL) 34.0 03/ 1538 Chemistry Sodium (137 - 145 mmol/L) 138 Potassium (3.5 - 5.1 mmol/L) 6.1 *H Chloride (98 - 107 mmol/L) 98 Carbon Dioxide (22 - 30 mmol/L) 24 Anion Gap (5 - 16) 16 BUN (7 - 17 mg/dL) 51 H Creatinine (0.5 - 1.0 mg/dL) 2.7 H Estimated GFR (>60 ml/min) 18 L BUN/Creatinine Ratio (7 - 25 %) 18.9 Glucose (65 - 99 mg/dL) 106 H Serum Osmolality (285 - 295 MOSM/KG) 307 H Calcium (8.4 - 10.2 mg/dL) 10.9 H Magnesium (1.6 - 2.3 mg/dL) 1.6 Total Bilirubin (0.2 - 1.3 mg/dL) 0.5 AST (14 - 36 U/L) 29 ALT (9 - 52 U/L) 33 Alkaline Phosphatase (<127 U/L) 82 Troponin I (< 0.11 ng/ml) < 0.01 Total Protein (6.3 - 8.2 g/dL) 8.0 Albumin (3.5 - 5.0 g/dL) 4.6 Globulin (1.9 - 4.2 gm/dL) 3.4 Albumin/Globulin Ratio (1.1 - 2.2 %) 1.4 Hematology CBC w Diff NO MAN DIFF REQ WBC (4.8 - 10.8 /CUMM) 6.9 RBC (4.20 - 5.40 /CUMM) 4.23 Hgb (12.0 - 16.0 G/DL) 12.5 Hct (37 - 47 %) 37.0 MCV (81.0 - 99.0 FL) 87.4 MCH (27.0 - 31.0 PG) 29.5 RDW (11.5 - 14.5 %) 13.9 Plt Count (130 - 400 /CUMM) 309 MPV (7.4 - 10.4 FL) 8.3 Gran % (42.2 - 75.2 %) 56.8 Lymphocytes % (20.5 - 51.1 %) 27.4 Monocytes % (1.7 - 9.3 %) 9.3 Eosinophils % (0 - 5 %) 5.6 H Basophils % (0.0 - 2.0 %) 0.9 Absolute Granulocytes (1.4 - 6.5 /CUMM) 3.9 Absolute Lymphocytes (1.2 - 3.4 /CUMM) 1.9 Absolute Monocytes (0.10 - 0.60 /CUMM) 0.6 Absolute Eosinophils (0.0 - 0.7 /CUMM) 0.4 Absolute Basophils (0.0 - 0.2 /CUMM) 0.1 PUBS MCHC (33.0 - 37.0 G/DL) 33.8 ESR Westergren (0 - 20 MM) 11 Imaging/Other Studies: EXAM TYPE: US - US-RENAL/KIDNEY EXAMINATION: US RETROPERITONEAL COMPLETE (RENAL) CLINICAL INFORMATION: Acute on chronic kidney injury. Elevated creatinine level. COMPARISON: CT scan of the abdomen and pelvis dated 02/27/2008. TECHNIQUE: Real-time imaging of the kidneys and bladder. FINDINGS: RIGHT KIDNEY: 10.4 x 4.2 x 4.7 cm (SAG x AP x TRV). The kidney is normal in size, contour, and echogenicity. Renal cortical thickness is normal. No calculi or suspicious focal parenchymal lesions. Benign-appearing thin-walled anechoic 1.8 x 1.5 x 1.6 cm cortical cyst is seen in the upper pole of the right kidney. Second 0.8 x 0.5 x 0.7 cm partially exophytic cortical cyst is seen in the lower pole of the right kidney. No hydronephrosis. LEFT KIDNEY: 11.1 x 5.4 x 4.5 cm (SAG x AP x TRV). The kidney is normal in size, contour, and echogenicity. Renal cortical thickness is normal. Benign-appearing exophytic cortical cyst is seen in the upper pole, measuring 1.3 x 1.0 x 0.9 cm. Additional exophytic mid left renal cortical cyst is seen, measuring 5.1 x 3.0 x 3.5 cm with thin posterior eccentric and incomplete septation. In the lower pole of the left kidney, a 1.6 x 1.2 x 1.7 cm cyst is seen. There is a 0.4 cm nonobstructing calcification in the lower pole of the left kidney. No suspicious focal parenchymal lesions. No hydronephrosis. BLADDER: Decompressed and not adequately seen. Bilaterally, ureteral jets are not demonstrated. IMPRESSION: 1. Bilateral benign-appearing cysts. 2. Nonobstructing lower pole left renal calcification. 3. No evidence of hydronephrosis. 4. Bladder inadequately assessed. Assessment/Plan Assessment/Recommendations Assessment: Stage IV CKD - Thought to be 2/2 HTN/DM/NSAID's. LEEANNE - Likely 2/2 pre-renal azotemia which is improving with IVF. Cannot rule out ATN. Low suspicion for obstruction given recent renal U/S with no evidence of hydro. Hyperkalemia - Likely 2/2 LEEANNE and dietary noncompliance. Recommendations: -Would continue to hold ARB (especially given hyperkalemia) - ideally should wait until SCr normalizes until this is restarted. May need to send patient out on low dose amlodipine 5mg if her BP at home >140/90 -Would send UA with microscopic analysis -Would get urine sodium, urea, creatinine -Cont IVF through the day -Pt can get bloodwork next week and f/u with Dr. Cat as an outpatient as creatinine is improving and she is eating/drinking Please call [phone] with ?'s
--- NOTE | 2016-05-27 14:24 | Patient Discharge Instructions ---
Discharge Instructions General Discharge Information You were seen/treated for: - Hyperkalemia - Acute kidney injury on chronic kidney disease - Face tingling in the settings of headache Watch for these problems: Muscle pain, weakness, numbness, slurred speech. Special Instructions: - Please follow up with Dr. Cat for follow up labs. - Please keep your appointment with Dr. Huynh. - Follow up with Dr. Hylton after seeing Dr. Huynh. Decision will be made on need for stress test. - Please follow up with your PCP. - Please stop taking losartan. - Follow up with your PCP regarding continuing metformin use. - Please do not take NSAIDs including ibuprofen, aleve. - Stay hydrated. Drink plenty of fluids. Diet Continue normal diet: Yes Activity Full Activity/No Limits: Yes Acute Coronary Syndrome Inclusion Criteria At DC or during hospital stay patient has or had the following: ACS DIAGNOSIS No Discharge Core Measures Meds if any: Prescribed or Continued at Discharge Meds if any: NOT Prescribed or Continued at Discharge Congestive Heart Failure Inclusion Criteria At DC or during hospital stay patient has or had the following: CHF DIAGNOSIS No Discharge Core Measures Meds if any: Prescribed or Continued at Discharge Meds if any: NOT Prescribed or Continued at Discharge Cerebrovascular accident Inclusion Criteria At DC or during hospital stay patient has or had the following: CVA/TIA Diagnosis No Discharge Core Measures Meds if any: Prescribed or Continued at Discharge Meds if any: NOT Prescribed or Continued at Discharge Venous thromboembolism Inclusion Criteria VTE Diagnosis No VTE Type NONE VTE Confirmed by (Test) NONE Discharge Core Measures - Per Current guidelines, there needs to be overlap - treatment for the first 5 days of Warfarin therapy. - If discharged on Warfarin prior to 5 days of - overlap therapy, the patient will need to be - assessed for post discharge needs including - *Post discharge parental anticoagulation - *Warfarin and/or parental anticoagulation education - *Follow up date to check INR post discharge At least 5 days overlap therapy as Inpatient No Meds if any: Prescribed or Continued at Discharge Note: Overlap Therapy is Warfarin and Anticoagulant Meds if any: NOT Prescribed or Continued at Discharge
[2016-05-27] MEDS ORDERED: AMLODIPINE BESYL5 M1 PO (14:25)
--- NOTE | 2016-05-27 14:27 | Discharge Summary ---
Visit Information Visit Dates Admission Date: 05/26/16 Discharge Date: 05/28/16 Hospital Course Course Attending Physician: MARCIAL MESA,ROMELIA Primary Care Physician: JUNITO MESA,[facility] Course: Ms. 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 She was admitted to telemetry for a headache associated with transient (lasting seconds) pins and needles sensation on her right cheek, although unlikely to be TIA. Problem list: # LEEANNE on CKD (improving) # Transient tingling of right cheek associated with headace (resolved), unlikely to be another TIA episode # Hyperkalemia (resolved) # LEEANNE on CKD - Patient presents with a creatinine of 2.7 this admission. Most likely pre- renal secondary to dehydration from vomiting, vs worsening of kidney functions due to medications (losartan,metformin) vs diabetic and hypertensive nephropathy. - Patient received 1L bolus of NS in ED. * Nephrology consulted * Will follow up with Dr. Santiago for weekly labs * Do no start losartan until her cr at baseline, started amlodipine 5 mg daily for BP control. * Avoid nephrotoxins * Nutrition consulted on low potassium and sodium diet # Transient tingling of right cheek associated with headace (resolved), unlikely to be another TIA episode - Her headache with mild tinglingness in the right sided face is concerning for recurrent TIA in the setting of her recent episode of TIA about 2 weeks [employer]. Her tinglingness may be more accountable to the existing Jam's syndrome but it is hard to differentiate. - Her hadache has resolved completely with Tylenol. - CT head did not show any acute findings. - MRI without contrast: There are no acute bleeds or infarcts. The study redemonstrates sequelae of chronic microvascular ischemic disease and lacunar infarcts. * Neuro consulted, appreciate recs, Dr. Perez does not think this is another TIA episode * Continue lipitor 10 mg daily * Continue Plavix * Cardiology, Dr Hylton consulted. Holter monitor might have shown brief flutter in her sleep. * Informed Dr. Huynh that pt is in the hospital (she did not get a chance to follow up with him as outpatient for carotid stenosis as outpatient, but has an appointment set up). I discussed the imaging findings with him and he will follow up with her as outpatient. Informed him that CTA (to further evaluate stenosis) could not be done because her cr > 1.5 * Not taking aspirin due to NSAID induced nephrotoxicity # Hyperkalemia (resolved) most likely due to worsening kidney functions, might also cause her tingling - K was 6.1 on admission, improved to 4.4 with kayexelate # Hypertension * DISCONTINUED home med losartan 50 mg, STARTED on amlodipine 5 mg daily * Will follow up with PCP for BP checks # Hyperlipidemia * Continue home med ezetimibe and lipitor 10, watch for myalgia # DM type II * Continue metformin, will follow up with PCP if metformin needs to be changed given kidney functions. Consider endocrinology referral. # Hypomagnesia - mag 1.6 * Continue Mag Ox 400mg PO TID (recently increased by Dr. Cat) # Asthma * Albuterol prn * Singulair 10 daily # Diet: diabetic # DVTppx: SQ Heparin # Full code Allergies: Coded Allergies: aspirin (RASH ALL OVER, RINGING IN THE EARS 05/10/16) erythromycin base (RASH ALL OVER 05/10/16) melon (HANDS SWELL, ITCH, THROAT ITCHES 05/10/16) Disposition Summary Disposition Principal Diagnosis: Acute kidney injury on chronic kidney disease Additional Diagnosis: Hyperkalemia Discharge Disposition: home or self care Discharge Instructions General Discharge Information Code Status: Full Code Patient's Diet: Diabetic diet Patient's Activity: As tolerated Follow-Up Instructions/Appts: You were seen/treated for: - Hyperkalemia - Acute kidney injury on chronic kidney disease - Face tingling in the settings of headache Watch for these problems: Muscle pain, weakness, numbness, slurred speech. Special Instructions: - Please follow up with Dr. Cat for follow up labs. - Please keep your appointment with Dr. Huynh. - Follow up with Dr. Hylton after seeing Dr. Huynh. Decision will be made on need for stress test. - Please follow up with your PCP. - Please stop taking losartan. - Follow up with your PCP regarding continuing metformin use. - Please do not take NSAIDs including ibuprofen, aleve. - Stay hydrated. Drink plenty of fluids. Medications at Discharge Discharge Medications: Stop taking the following medications: Losartan Potassium (Losartan Potassium) 50 MG TABLET ORAL Every Morning Qty = 30 Continue taking these medications: Ezetimibe (Zetia) 10 MG TABLET 1 Tablet ORAL Every Morning Qty = 90 Comments: Last Taken:05/28/16 Time:1000 Albuterol Sulfate (Proair Hfa) 90 MCG HFA.AER.AD 2 Puff Inhale through mouth as needed for ASTHMA Comments: NOT GIVEN IN HOSPITAL Citalopram Hydrobromide (Citalopram HBr) 20 MG TABLET 1 Tablet ORAL Every night Qty = 90 Comments: Last Taken:05/27/16 Time:2200 Metformin HCl (Metformin HCl) 1,000 MG TABLET 1 Tablet ORAL TWICE DAILY Qty = 60 Comments: NOT GIVEN IN HOSPITAL Montelukast Sodium (Montelukast Sodium) 10 MG TABLET 1 Tablet ORAL DAILY Qty = 30 Comments: Last Taken:05/28/16 Time:1000 Pantoprazole Sodium (Pantoprazole Sodium) 40 MG TABLET.DR 1 Tablet ORAL DAILY BEFORE BREAKFAST Qty = 90 Comments: Last Taken:05/28/16 Time:0700 Multivitamin (Multi-Day Vitamins) 1 EACH TABLET 1 Tablet ORAL DAILY Comments: Last Taken:05/28/16 Time:1000 Cholecalciferol (Vitamin D3) (Vitamin D) 2,000 UNIT CAPSULE 1 Capsule ORAL DAILY Comments: Last Taken: Time: Cyanocobalamin (Vitamin B-12) 1,000 MCG TABLET 1 Tablet ORAL DAILY Comments: Last Taken: Time: Clopidogrel Bisulfate (Plavix) 75 MG TABLET 1 Tablet ORAL DAILY Qty = 60 Comments: Last Taken: 05/28/16 Time: 9 AM Gemfibrozil (Gemfibrozil) 600 MG TABLET 1 Tablet ORAL TWICE DAILY Qty = 60 Comments: Last Taken:05/28/16 Time:1000 Atorvastatin Calcium (Lipitor) 10 MG TABLET 1 Tablet ORAL DAILY Comments: Last Taken:05/27/16 Time:2200 Magnesium Oxide (Magnesium) 400 MG CAPSULE 1 Capsule ORAL THREE TIMES DAILY Comments: Last Taken:05/28/16 Time:1000 Start taking the following new medications: Amlodipine Besylate (Amlodipine Besylate) 5 MG TABLET 1 Tablet ORAL DAILY Qty = 30 No Refills Comments: Last Taken:05/28/16 Time:1000 Copies To: YEYO MESA,WEN Gore; DI MESA,MYRTLE; JUNITO MESA,LAYA; ARON MESA,WILDER Ortiz; JOSE MESA,Saad NELSON; JONATAN MESA,BRIANNE Attending MD Review Statement Documenting Attending: GAL RODRIGUEZ M.D Other Findings: I have reviewed the discharge summary.
[2016-05-27 16:10] VITALS: BP 132/88
--- NOTE | 2016-05-27 16:40 | Cons- Neurology ---
General Information and HPI Consulting Request Date of Consult: 05/27/16 Requested By: ROMELIA CEJA MD Reason for Consult: TIA? Source of Information: patient, family, old records Exam Limitations: no limitations History of Present Illness: This is a pleasant 65-year-old woman who I just seen a few weeks ago in the ER for a TIA during which she suffered transient speech difficulties that then resolved. An MRI was done and did not reveal any new infarct at the time. Stroke workup also did not reveal much. He currently comes back to the hospital 2 weeks later after developing a headache with vomiting and photophobia that occurred during lunch and lasted for a few hours. The headache resolved on its own. He denies ever suffering from migraines before. He is found to have high potassium 6.1 and that was corrected with Kayexalate. Day she is completely back to normal and has not had any other recurrence. Focal symptoms at any point in time. No trouble with speech. Allergies/Medications Allergies: Coded Allergies: aspirin (RASH ALL OVER, RINGING IN THE EARS 05/10/16) erythromycin base (RASH ALL OVER 05/10/16) melon (HANDS SWELL, ITCH, THROAT ITCHES 05/10/16) Home Med List: Albuterol Sulfate (Proair Hfa) 90 MCG HFA.AER.AD 2 PUF INH PRN ASTHMA ( Reported) Atorvastatin Calcium (Lipitor) 10 MG TABLET 1 TAB PO DAILY CHOLESTEROL ( Reported) Cholecalciferol (Vitamin D3) (Vitamin D) 2,000 UNIT CAPSULE 1 CAP PO DAILY SUPPLEMENT (Reported) Citalopram Hydrobromide (Citalopram HBr) 20 MG TABLET 1 TAB PO QPM MENTAL HEALTH (Reported) Clopidogrel Bisulfate (Plavix) 75 MG TABLET 1 TAB PO DAILY TIA Cyanocobalamin (Vitamin B-12) 1,000 MCG TABLET 1 TAB PO DAILY SUPPLEMENT ( Reported) Ezetimibe (Zetia) 10 MG TABLET 1 TAB PO QAM CHOLESTEROL (Reported) Gemfibrozil 600 MG TABLET 1 TAB PO BID high triglyceride Losartan Potassium 50 MG TABLET 1 TAB PO QAM HTN (Reported) Magnesium Oxide (Magnesium) 400 MG CAPSULE 1 CAP PO TID SUPPLEMENT (Reported) Metformin HCl 1,000 MG TABLET 1 TAB PO BID DM (Reported) Montelukast Sodium 10 MG TABLET 1 TAB PO DAILY ASTHMA/ALLERGIES (Reported) Multivitamin (Multi-Day Vitamins) 1 EACH TABLET 1 TAB PO DAILY SUPPLEMENT ( Reported) Pantoprazole Sodium 40 MG TABLET.DR 1 TAB PO DAILY AC GI (Reported) Current Medications: Current Medications Sig/Allan Start time Last Medication Dose Route Stop Time Status Admin Acetaminophen 650 MG Q6 PRN 05/26 2100 AC PO Amlodipine Besylate 5 MG DAILY 05/27 1515 AC PO Atorvastatin Calcium 10 MG QPM 05/26 2200 AC 05/26 PO 2211 Citalopram 20 MG QPM 05/26 2200 AC 05/26 Hydrobromide PO 2211 Clopidogrel Bisulfate 75 MG DAILY 05/27 1000 AC 05/27 PO 0948 Cyanocobalamin 1,000 MCG DAILY 05/27 1000 AC 05/27 PO 0948 Gemfibrozil 600 MG BID 05/26 2200 AC 05/27 PO 0948 Heparin Sodium 5,000 UNIT Q8 05/26 2200 AC (Porcine) SC Insulin Aspart 0 TIDAC 05/27 0800 AC SC Magnesium Oxide 400 MG TID 05/26 2200 AC 05/27 PO 0948 Montelukast Sodium 10 MG 2200 05/27 2200 AC PO Multivitamins 1 TAB DAILY 05/27 1000 AC 05/27 Therapeutic PO 0948 Omeprazole 40 MG DAILY AC 05/27 0700 AC 05/27 PO 0632 Sodium Chloride 1,000 ML Q13H 05/26 2115 AC 05/27 IV 05/28 1214 0948 Sodium Chloride 1,000 ML BOLUS ONE 05/26 1700 DC / IV 05/26 1759 1722 Sodium Polystyrene 0 .STK-MED ONE 05/26 1706 DC Sulfonate .ROUTE Sodium Polystyrene 60 ML ONCE ONE 05/26 1700 DC 03 Sulfonate PO 05/26 1701 1722 Tramadol HCl 50 MG Q8P PRN 05/26 2100 AC PO Trimethobenzamide HCl 200 MG TID PRN 05/26 2130 DC IM Past History Travel History Traveled to [place] past 21 day No Medical History Blood Transfusion Hx: No Neurological: ELY'S syndrome EENT: NONE Cardiovascular: hypertension, hyperlipidemia Respiratory: asthma Gastrointestinal: NONE Hepatic: NONE Renal: chronic kidney disease Musculoskeletal: CERVICAL DISEASE Psychiatric: NONE Endocrine: diabetes Blood Disorders: NONE Cancer(s): 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 Psychosocial History Where Do You Live? Home Who Do You Live With? spouse Primary Language: [place] Smoking Status: Former Smoker (college) ETOH Use: occasional use Functional Ability ADLs Independent: dressing, eating, toileting, bathing. Ambulation: independent IADLs Independent: shopping, housework, finances, food prep, telephone, transportation , medication admin. Exam & Diagnostic Data Vital Signs and I&O Vital Signs Date Time Temp Pulse Resp B/P Pulse O2 O2 Flow FiO2 Ox Delivery Rate 05/27 1610 97.7 77 18 132/88 98 Room Air 05/27 1319 Room Air Room Air 05/27 0808 98.0 76 18 122/80 97 Room Air 05/26 2053 98.3 85 20 144/96 93 Room Air 05/27 2023 98.7 92 18 135/79 93 05/26 1719 88 18 131/78 94 Intake & Output 05/27 1600 05/27 0800 05/27 0000 Intake Total 1080 1250 1575 Output Total 1100 800 Balance -20 450 1575 Intake, IV 193 287 5131 Intake, Oral 480 650 500 Number 0 1 Bowel Movements Output, Urine 1100 800 Patient 190 lb Weight Physical Exam: General: The patient is in no distress. Pleasant and cooperative. MSE: Alert and oriented 3. Good attention and concentration. Good short-term memory and fund of knowledge reflected through our conversation. Language is fluent with good comprehension and repetition. Cardiovascular: S1 and S2 are normal, regular rate and rhythm, and normal pedal pulses. Vision: Fundoscopic exam does not reveal any abnormalties. Visual lou are intact. Neurological: Extra ocular movements intact, ANAI, right upper eyelid droop due to Ely's syndrome otherwise face is symmetric, tongue midline, uvula raises equally in the midline, V1-V3 sensation to touch is intact and equal bilaterallty, sternocleidomastoid and trapezius are strong on both sides, muscles of mastication are strong. No dysarthria noted. Motor exam reveals no abnormality of strength. Power is 5-5 throughout the distribution distally and proximally. Sensory exam did not reveal any deficits to touch, temperature, vibration and proprioception. Reflexes are symmetric bilaterally. Cerebellar exam does not reveal any dysmetria. Rapid alternating movements are intact bilaterally. Gait is steady with normal base. Last 48 Hours of Lab Results: Laboratory Tests 05/27 05/27 1330 0630 Chemistry Sodium (137 - 145 mmol/L) 141 Potassium (3.5 - 5.1 mmol/L) 4.4 Chloride (98 - 107 mmol/L) 103 Carbon Dioxide (22 - 30 mmol/L) 25 Anion Gap (5 - 16) 13 BUN (7 - 17 mg/dL) 42 H Creatinine (0.5 - 1.0 mg/dL) 2.4 H Estimated GFR (>60 ml/min) 20 L BUN/Creatinine Ratio (7 - 25 %) 17.5 Magnesium (1.6 - 2.3 mg/dL) 1.6 Hematology CBC w Diff NO MAN DIFF REQ WBC (4.8 - 10.8 /CUMM) 6.3 RBC (4.20 - 5.40 /CUMM) 3.89 L Hgb (12.0 - 16.0 G/DL) 11.7 L Hct (37 - 47 %) 34.4 L MCV (81.0 - 99.0 FL) 88.4 MCH (27.0 - 31.0 PG) 30.0 RDW (11.5 - 14.5 %) 14.0 Plt Count (130 - 400 /CUMM) 276 MPV (7.4 - 10.4 FL) 8.7 Gran % (42.2 - 75.2 %) 34.4 L Lymphocytes % (20.5 - 51.1 %) 42.0 Monocytes % (1.7 - 9.3 %) 11.7 H Eosinophils % (0 - 5 %) 10.7 H Basophils % (0.0 - 2.0 %) 1.2 Absolute Granulocytes (1.4 - 6.5 /CUMM) 2.2 Absolute Lymphocytes (1.2 - 3.4 /CUMM) 2.7 Absolute Monocytes (0.10 - 0.60 /CUMM) 0.7 H Absolute Eosinophils (0.0 - 0.7 /CUMM) 0.7 Absolute Basophils (0.0 - 0.2 /CUMM) 0.1 PUBS MCHC (33.0 - 37.0 G/DL) 34.0 Urines Urine Color (YEL,AMB,STR) YEL Urine Clarity (CLEAR) CLEAR Urine pH (5.0 - 8.0) 6.0 Ur Specific [place] (1.001 - 1.035) 1.010 Urine Protein (NEG,<30 MG/DL) NEG Urine Ketones (NEG) NEG Urine Nitrite (NEG) NEG Urine Bilirubin (NEG) NEG Urine Urobilinogen (0.1 - 1.0 EU/dl) 0.2 Ur Leukocyte Esterase (NEG) NEG Ur Microscopic EXAM NOT REQUIRED Urine Hemoglobin (NEG) NEG Urine Glucose (N MG/DL) NEG 05/26 05/26 2115 1538 Chemistry Sodium (137 - 145 mmol/L) 139 138 Potassium (3.5 - 5.1 mmol/L) 4.8 6.1 *H Chloride (98 - 107 mmol/L) 103 98 Carbon Dioxide (22 - 30 mmol/L) 21 L 24 Anion Gap (5 - 16) 16 16 BUN (7 - 17 mg/dL) 47 H 51 H Creatinine (0.5 - 1.0 mg/dL) 2.5 H 2.7 H Estimated GFR (>60 ml/min) 19 L 18 L BUN/Creatinine Ratio (7 - 25 %) 18.8 18.9 Glucose (65 - 99 mg/dL) 106 H Serum Osmolality (285 - 295 MOSM/KG) 307 H Calcium (8.4 - 10.2 mg/dL) 10.9 H Magnesium (1.6 - 2.3 mg/dL) 1.5 L 1.6 Total Bilirubin (0.2 - 1.3 mg/dL) 0.5 AST (14 - 36 U/L) 29 ALT (9 - 52 U/L) 33 Alkaline Phosphatase (<127 U/L) 82 Troponin I (< 0.11 ng/ml) < 0.01 Total Protein (6.3 - 8.2 g/dL) 8.0 Albumin (3.5 - 5.0 g/dL) 4.6 Globulin (1.9 - 4.2 gm/dL) 3.4 Albumin/Globulin Ratio (1.1 - 2.2 %) 1.4 Hematology CBC w Diff NO MAN DIFF REQ WBC (4.8 - 10.8 /CUMM) 6.9 RBC (4.20 - 5.40 /CUMM) 4.23 Hgb (12.0 - 16.0 G/DL) 12.5 Hct (37 - 47 %) 37.0 MCV (81.0 - 99.0 FL) 87.4 MCH (27.0 - 31.0 PG) 29.5 RDW (11.5 - 14.5 %) 13.9 Plt Count (130 - 400 /CUMM) 309 MPV (7.4 - 10.4 FL) 8.3 Gran % (42.2 - 75.2 %) 56.8 Lymphocytes % (20.5 - 51.1 %) 27.4 Monocytes % (1.7 - 9.3 %) 9.3 Eosinophils % (0 - 5 %) 5.6 H Basophils % (0.0 - 2.0 %) 0.9 Absolute Granulocytes (1.4 - 6.5 /CUMM) 3.9 Absolute Lymphocytes (1.2 - 3.4 /CUMM) 1.9 Absolute Monocytes (0.10 - 0.60 /CUMM) 0.6 Absolute Eosinophils (0.0 - 0.7 /CUMM) 0.4 Absolute Basophils (0.0 - 0.2 /CUMM) 0.1 PUBS MCHC (33.0 - 37.0 G/DL) 33.8 ESR Westergren (0 - 20 MM) 11 Imaging/Other Studies: MRI brain IMPRESSION: 1. There are no acute bleeds or infarcts. 2. The study redemonstrates sequelae of chronic microvascular ischemic disease and lacunar infarcts. Assessment/Plan Assessment: Incidental headache with vomiting and photophobia reminiscent of migraine headache. No suggestion of any new TIA. Recommendations: Requesting us to do from a neurological standpoint. Consult Acknowledgment - Thank you for your consult request.
[2016-05-28 00:08] VITALS: BP 127/90; BP 142/87
[2016-05-28 07:39] VITALS: BP 150/78
--- NOTE | 2016-05-28 08:12 | PN- Housestaff ---
Subjective Follow-up For: LEEANNE Tele-Events Since Last Visit: SR 70s-80s. PACs. Subjective: She reports no complaints this morning. Feels that she is ready to go home if cleared for discharge. Stated that she would want her meds transmited to [facility] on [facility]. She seems to be tolerating amlodipine well and would likely go home on it to replace the losartan. Dr. Nina has told her that she probably needs weekly labs and he will get that set up for her. I have informed her that she needs to follow up with Dr. Cat next week for labs and Dr. Juárez regarding metformin. cr still 2.4. noted slight drop in hg from 11.7 to 11.3 (baseline about 12) fena found to be elevated Review of Systems Constitutional: Denies: chills, fever. EENTM: Denies: visual changes. Cardiovascular: Denies: chest pain, palpitations. Respiratory: Denies: cough, short of breath. Gastrointestinal: Denies: abdominal pain. Objective Last 24 Hrs of Vital Signs/I&O Vital Signs Date Time Temp Pulse Resp B/P Pulse O2 O2 Flow FiO2 Ox Delivery Rate 05/28 0907 156/74 / 0739 97.5 90 18 150/78 97 Room Air / 0008 97.4 85 20 127/90 93 / 0008 97.5 96 20 142/87 96 03/04 0000 98 05/27 1712 77 132/88 05/27 1610 97.7 77 18 132/88 98 Room Air 05/27 1319 Room Air Room Air Intake & Output 05/28 1600 05/28 0800 05/28 0000 Intake Total 840 465 Output Total 1100 650 Balance -260 -185 Intake, IV 600 225 Intake, Oral 240 240 Output, Urine 1100 650 Physical Exam General Appearance: Alert, Oriented X3 Skin: No Significant Lesion HEENT: Atraumatic Neck: Supple Cardiovascular: Regular Rate, Normal S1, Normal S2, No Murmurs, Gallops, Rubs Lungs: Clear to Auscultation, Normal Air Movement Abdomen: Normal Bowel Sounds, Soft, No Tenderness Neurological: Normal Speech Extremities: No Edema Current Medications: Current Medications Sig/Allan Start time Last Medication Dose Route Stop Time Status Admin Acetaminophen 650 MG Q6 PRN 05/26 2100 AC PO Amlodipine Besylate 5 MG DAILY 05/27 1515 AC 05/28 PO 09 Atorvastatin Calcium 10 MG QPM 05/26 2200 AC 05/27 PO 214 Citalopram 20 MG QPM 05/26 2200 AC 05/27 Hydrobromide PO 214 Clopidogrel Bisulfate 75 MG DAILY 05/27 1000 AC 05/28 PO 09 Cyanocobalamin 1,000 MCG DAILY 05/27 1000 AC 05/28 PO 09 Gemfibrozil 600 MG BID 05/26 2200 AC 05/28 PO 09 Heparin Sodium 5,000 UNIT Q8 05/26 220 AC (Porcine) SC Insulin Aspart 0 TIDAC 05/27 0800 AC SC Magnesium Oxide 400 MG TID 05/26 220 AC 05/28 PO 09 Montelukast Sodium 10 MG 22005/27 220 AC 05/27 PO 214 Multivitamins 1 TAB DAILY 05/27 1000 AC 05/28 Therapeutic PO 09 Omeprazole 40 MG DAILY AC 05/27 0700 AC 05/28 PO 0603 Sodium Chloride 1,000 ML Q13H 05/26 2115 AC 05/28 IV 05/28 1214 0153 Tramadol HCl 50 MG Q8P PRN 05/26 2100 AC PO Last 24 Hrs of Lab/Mik Results Last 24 Hrs of Labs/Mics: Laboratory Tests 05/28/16 0625: Anion Gap 12, Estimated GFR 20 L, BUN/Creatinine Ratio 15.0, CBC w Diff NO MAN DIFF REQ, RBC 3.74 L, MCV 89.2, MCH 30.0, RDW 14.0, MPV 8.7, Gran % 31.6 L, Lymphocytes % 41.3, Monocytes % 12.7 H, Eosinophils % 13.0 H, Basophils % 1.4, Absolute Granulocytes 1.8, Absolute Lymphocytes 2.4, Absolute Monocytes 0.7 H, Absolute Eosinophils 0.7, Absolute Basophils 0.1, PUBS MCHC 33.7 05/27/16 1612: Ref Lab Test Result Pending, Ur Random Creatinine 20.8, Ur Random Sodium 64, Ur Random Potassium 11.9, Fraction Sodium Excret 5.2 H 05/27/16 1330: Urine Color YEL, Urine Clarity CLEAR, Urine pH 6.0, Ur Specific [place] 1.010, Urine Protein NEG, Urine Ketones NEG, Urine Nitrite NEG, Urine Bilirubin NEG, Urine Urobilinogen 0.2, Ur Leukocyte Esterase NEG, Ur Microscopic EXAM NOT REQUIRED, Urine Hemoglobin NEG, Urine Glucose NEG Assessment/Plan Assessment: Ms. 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 K improved to 4.4 with kayexelate. Kidney functions also improved to cr 2.4 with IV hydration. Problem list: # LEEANNE on CKD (improving) # Transient tingling of right cheek associated with headace (resolved), unlikely to be another TIA episode # Hyperkalemia (resolved) # LEEANNE on CKD - Patient presents with a creatinine of 2.7 this admission. Most likely pre- renal secondary to dehydration from vomiting, vs worsening of kidney functions due to medications (losartan,metformin) vs diabetic and hypertensive nephropathy. - Patient received 1L bolus of NS in ED. * Monitor kidney functions * Courtesy call to Dr. Cat * Placed nephrology consult on input regarding switching losartan to another antihypertensive and metformin to another antihyperglycemic. * Do no start losartan until her cr at baseline, started amlodipine 5 mg daily for BP control. Meds to be transmitted to [email or web address] * Encourage adequate hydration. Continue NS @ 75ml/hr * Avoid nephrotoxins * Nutrition consult on low potassium and # Transient tingling of right cheek associated with headace (resolved), unlikely to be another TIA episode - Her headache with mild tinglingness in the right sided face is concerning for recurrent TIA in the setting of her recent episode of TIA about 2 weeks [employer]. Her tinglingness may be more accountable to the existing Jam's syndrome but it is hard to differentiate. - Her hadache has resolved completely with Tylenol. - CT head did not show any acute findings. - MRI without contrast : There are no acute bleeds or infarcts. The study redemonstrates sequelae of chronic microvascular ischemic disease and lacunar infarcts. * Neuro consulted, appreciate recs, Dr. Perez does not think this is another TIA episode * Resume lipitor 10 mg daily * Continue Plavix * Cardiology, Dr Hylton consulted. Holter monitor might have shown brief flutter in her sleep. * Appreciate PT/OT recs * Control headache with Tylenol and Ultram * Informed Dr. Huynh that pt is in the hospital (she did not get a chance to follow up with him as outpatient for carotid stenosis as outpatient, but has an appointment set up). I discussed the imaging findings with him and he will follow up with her as outpatient. Informed him that CTA could not be done because her cr > 1.5 * Not taking aspirin due to NSAID induced nephrotoxicity * Continue on telemetry # Hyperkalemia (resolved) most likely due to worsening kidney functions, might also cause her tingling - K was 6.1 on admission, improved to 4.4 with kayexelate * Monitor K # Hypertension * Hold home med losartan 50 mg for now # Hyperlipidemia * Hold home med ezetimibe * Resume lipitor 10, watch for myalgia # DM type II * Hold home med metformin * Novolin SSI with accuchecks * Consider endocrinology referral # Hypomagnesia - mag 1.6 * Resume Mag Ox 400mg PO TID (recently increased by Dr. Cat) # Asthma * Albuterol prn * Singulair 10 daily # Diet: diabetic # Mild pain pathway # DVTppx: SQ Heparin # Full code Consults: Neuro, nephro, cardio, nutrition, PT, OT Labs: BEP for hyperkalemia and LEEANNE on CKD Problem List: 1. LEEANNE (acute kidney injury) Pain Ratin Pain Location: none Pain Goal: Remain pain free Pain Plan: none Tomorrow's Labs & Rationales: bep for leeanne on ckd cbc for dropping h/h DVT/Prophylaxis: mechanical, pharmacological
[2016-05-28 08:41] LABS: ABSOLUTE BASOPHIL COUNT 0.1 /CUMM (0.0-0.2); ABSOLUTE EOSINOPHIL COUNT 0.7 /CUMM (0.0-0.7); ABSOLUTE GRANULOCYTE CT 1.8 /CUMM (1.4-6.5); ABSOLUTE LYMPH COUNT 2.4 /CUMM (1.2-3.4); ABSOLUTE MONOCYTE COUNT 0.7 /CUMM (0.10-0.60); BASOPHIL % 1.4 % (0.0-2.0); GRANULOCYTE % 31.6 % (42.2-75.2); HEMATOCRIT 33.4 % (37-47); MEAN CORPUSCULAR HGB CONC 33.7 G/DL (33.0-37.0); MEAN CORPUSCULAR VOLUME 89.2 FL (81.0-99.0); MEAN PLATELET VOLUME 8.7 FL (7.4-10.4); PLATELET COUNT 281 /CUMM (130-400); RED BLOOD CELL CT 3.74 /CUMM (4.20-5.40); WHITE BLOOD CELL COUNT 5.8 /CUMM (4.8-10.8)
[2016-05-28 09:07] VITALS: BP 156/74
--- NOTE | 2016-05-28 12:23 | PN- Cardiology ---
Subjective Subjective: The patient appears to be doing fine today. She denies any recurrence of any symptoms. Awaiting morning labs prior to plans for disposition. Objective Vital Signs and I&Os Vital Signs Date Time Temp Pulse Resp B/P Pulse O2 O2 Flow FiO2 Ox Delivery Rate 05/28 0907 156/74 05/28 0739 97.5 90 18 150/78 97 Room Air 05/28 0008 97.4 85 20 127/90 93 05/28 0008 97.5 96 20 142/87 96 05/28 0000 98 05/27 1712 77 132/88 05/27 1610 97.7 77 18 132/88 98 Room Air 05/27 1319 Room Air Room Air Intake & Output 05/28 1600 05/28 0805/28 0000 05/27 1600 05/27 0805/27 0000 Intake Total 010 948 3748 1250 1575 Output Total 9598 821 3275 800 Balance -260 -185 -20 450 1575 Intake, IV 600 225 930 502 3604 Intake, Oral 240 240 480 650 500 Number 0 1 Bowel Movements Output, Urine 8937 358 9893 800 Patient 190 lb Weight Current Medications: Current Medications Sig/Allan Start time Last Medication Dose Route Stop Time Status Admin Acetaminophen 650 MG Q6 PRN 05/26 2100 AC PO Amlodipine Besylate 5 MG DAILY 05/27 1515 AC 05/28 PO 0907 Atorvastatin Calcium 10 MG QPM 05/26 2200 AC 05/27 PO 2145 Citalopram 20 MG QPM 05/26 2200 AC 05/27 Hydrobromide PO 2149 Clopidogrel Bisulfate 75 MG DAILY 05/27 1000 AC 05/28 PO 0907 Cyanocobalamin 1,000 MCG DAILY 05/27 1000 AC 05/28 PO 0907 Gemfibrozil 600 MG BID 05/26 2200 AC 05/28 PO 0906 Heparin Sodium 5,000 UNIT Q8 05/26 2200 AC (Porcine) SC Insulin Aspart 0 TIDAC 05/27 0800 AC SC Magnesium Oxide 400 MG TID 05/26 2200 AC 05/28 PO 09 Montelukast Sodium 10 MG 2200 05/27 2200 AC 05/27 PO 2146 Multivitamins 1 TAB DAILY 05/27 1000 AC 05/28 Therapeutic PO 0907 Omeprazole 40 MG DAILY AC 05/27 0700 AC 05/28 PO 0603 Sodium Chloride 1,000 ML Q13H 05/26 2114 DC 05/28 IV 05/28 1214 0153 Tramadol HCl 50 MG Q8P PRN 05/26 2100 AC PO Results Last 48 Hrs of Labs/Mics: Laboratory Tests 05/28/16 0625: Anion Gap 12, Estimated GFR 20 L, BUN/Creatinine Ratio 15.0, CBC w Diff NO MAN DIFF REQ, RBC 3.74 L, MCV 89.2, MCH 30.0, RDW 14.0, MPV 8.7, Gran % 31.6 L, Lymphocytes % 41.3, Monocytes % 12.7 H, Eosinophils % 13.0 H, Basophils % 1.4, Absolute Granulocytes 1.8, Absolute Lymphocytes 2.4, Absolute Monocytes 0.7 H, Absolute Eosinophils 0.7, Absolute Basophils 0.1, PUBS MCHC 33.7 05/27/16 1612: Ref Lab Test Result Pending, Ur Random Creatinine 20.8, Ur Random Sodium 64, Ur Random Potassium 11.9, Fraction Sodium Excret 5.2 H 05/27/16 1330: Urine Color YEL, Urine Clarity CLEAR, Urine pH 6.0, Ur Specific [place] 1.010, Urine Protein NEG, Urine Ketones NEG, Urine Nitrite NEG, Urine Bilirubin NEG, Urine Urobilinogen 0.2, Ur Leukocyte Esterase NEG, Ur Microscopic EXAM NOT REQUIRED, Urine Hemoglobin NEG, Urine Glucose NEG 05/27/16 0630: Anion Gap 13, Estimated GFR 20 L, BUN/Creatinine Ratio 17.5, Magnesium 1.6, CBC w Diff NO MAN DIFF REQ, RBC 3.89 L, MCV 88.4, MCH 30.0, RDW 14.0, MPV 8.7, Gran % 34.4 L, Lymphocytes % 42.0, Monocytes % 11.7 H, Eosinophils % 10.7 H, Basophils % 1.2, Absolute Granulocytes 2.2, Absolute Lymphocytes 2.7, Absolute Monocytes 0.7 H, Absolute Eosinophils 0.7, Absolute Basophils 0.1, PUBS MCHC 34.0 05/26/162114: Anion Gap 16, Estimated GFR 19 L, BUN/Creatinine Ratio 18.8, Magnesium 1.5 L 05/26/16 1538: Anion Gap 16, Estimated GFR 18 L, BUN/Creatinine Ratio 18.9, Glucose 106 H, Serum Osmolality 307 H, Calcium 10.9 H, Magnesium 1.6, Total Bilirubin 0.5, AST 29, ALT 33, Alkaline Phosphatase 82, Troponin I < 0.01, Total Protein 8.0, Albumin 4.6, Globulin 3.4, Albumin/Globulin Ratio 1.4, CBC w Diff NO MAN DIFF REQ, RBC 4.23, MCV 87.4, MCH 29.5, RDW 13.9, MPV 8.3, Gran % 56.8, Lymphocytes % 27.4, Monocytes % 9.3, Eosinophils % 5.6 H, Basophils % 0.9, Absolute Granulocytes 3.9, Absolute Lymphocytes 1.9, Absolute Monocytes 0.6, Absolute Eosinophils 0.4, Absolute Basophils 0.1, PUBS MCHC 33.8, ESR Westergren 11 Assessment/Plan Assessment/Plan Assessment: 1. Right-sided headache with associated right facial numbness, nausea, vomiting , and elevated blood pressure 2. Acute on chronic renal insufficiency 3. Hyperkalemia 4. Hypertension 5. Diabetes 6. History of recent TIA Recommendations: -Continue as per the medical and nephrology service. -Losartan discontinued; amlodipine started -Blood pressure stable -Creatinine decreased to 2.4 today. -1 stable for discharge, the patient should follow-up with vascular surgery and keep her appointment as scheduled. -The patient will follow-up with me after the vascular surgery consult. If intervention is planned, the patient will need a pharmacologic nuclear stress test prior to the procedure. -Nephrology follow-up as outlined. -Follow-up laboratories as outpatient per nephrology. Continue telemetry? No
[2016-06-24] MEDS ORDERED: ZYRTEC10 M3 PO (08:06)
[2016-06-24] MEDS ORDERED: PREDNISONE20 M1 PO (08:07)
[2016-06-24] MEDS ORDERED: DAILY MULTIPLE1 EACH PO (08:08)
== END 2016-05-28 15:00 | DRG 683 ==
LOC: ENRESERVTM → ENRESERVDT → ERH 13:36 → ENPENDDIS 19:12 → 1NO 19:12 → ERHI 19:12 → 1NO 19:12
PROVIDERS: Internal Medicine; Physician Assistant Surgical; Radiology Diagnostic Radiology; ADMIT Internal Medicine
DX: I12.9 Hypertensive chronic kidney disease with stage 1 through stage 4 chronic kidney disease, or unspecified chronic kidney disease (principal); N17.9 Acute kidney failure, unspecified; E11.22 Type 2 diabetes mellitus with diabetic chronic kidney disease; E83.42 Hypomagnesemia; N18.4 Chronic kidney disease, stage 4 (severe); Z79.4 Long term (current) use of insulin; E78.5 Hyperlipidemia, unspecified; Z87.891 Personal history of nicotine dependence; J45.909 Unspecified asthma, uncomplicated; G90.2 Horner's syndrome; E87.5 Hyperkalemia
CPT/HCPCS: 1NSP; 70551; 84133; 84300; 84540; 36415; 81003; 82436; 82570; 93005; 93010; J1644; J3250

== ENCOUNTER 2016-06-28 02:38 | Inpatient (IN) | payer OTHER ==
[~2016-06-28] VITALS: Ht 162.6 cm; Wt 84.8 kg
[~2016-06-28 02:38] MED LIST changes: +AMLODIPINE BESYL5 M1 PO; +DAILY MULTIPLE1 EACH PO; +LIPITOR10 M1 PO; +PREDNISONE20 M1 PO; +ZYRTEC10 M3 PO
[2016-06-28 10:09] LABS: PT 11.2 SEC (9.4-12.5)
[2016-06-28] MEDS ORDERED: NAC600 M1 PO (10:38)
--- NOTE | 2016-06-28 13:21 | Admission Core Measures ---
Admission Lab Results I reviewed the following labs: Laboratory Tests 06/28 0943 Coagulation PT (9.4 - 12.5 SEC) 11.2 INR (0.90 - 1.19) 1.07 Admission Meds I reviewed the following Meds: Current Medications Sig/Allan Start time Last Medication Dose Stop Time Status Admin Acetylcysteine 600 MG BID 06/28 2200 AC (NAC) Albuterol Sulfate 2 PUF DAILY NEEDED PRN 06/28 1115 AC (Ventolin) Amlodipine Besylate 5 MG DAILY 06/29 1000 AC (Norvasc) Atorvastatin Calcium 10 MG 1700 06/29 1700 AC (Lipitor) Citalopram 20 MG QPM 06/28 2200 AC Hydrobromide (Celexa) Clopidogrel Bisulfate 75 MG DAILY 06/29 1000 AC (Plavix) Ezetimibe 10 MG QAM 06/29 1000 AC (Zetia) Gemfibrozil 600 MG 0730,1630 06/28 1630 AC (Lopid 600 MG Tab) Loratadine 10 MG DAILY NEEDED PRN 06/28 1115 AC (Claritin) Montelukast Sodium 10 MG DAILY 06/29 1000 AC (Singulair) Pantoprazole Sodium 40 MG DAILY AC 06/29 0700 AC (Protonix) Patient Medication 1 UNIT 1700 / 1700 AC Teaching / 1701 (STATIN EDUCATION) Patient Medication 1 UNIT 1000 / 1000 AC Teaching 06/29 1001 (CALCIUM CHANNEL GRACE EDUCATION) Patient Medication 1 UNIT 0700 / 0700 AC Teaching 06/29 0701 (PROTON PUMP INHIBITOR EDUCATION) Prednisone 40 MG DAILY 06/29 1000 AC Acute Coronary Syndrome Inclusion Criteria ACS Diagnosis No Inpatient Core Measures LDL Reminder: If No, please order W/I first 24hr of stay Congestive Heart Failure Inclusion Criteria CHF Diagnosis No Cerebrovascular accident Inclusion Criteria CVA/TIA Diagnosis No Inpatient Core Measures Bedside Swallow Eval Reminder: If BSE failed, place ST order Antithrombotic Reminder: Order Antithrombotic Medication by end of day 2 Antithrombotic Reminder: Document Reason Antithrombotic Not ordered by end of day 2 AFIB/Flutter Reminder: If Present, add to problem list AFIB/Flutter Reminder: Order Anticoag Medication for pts with AFIB/Flutter Atherosclerosis Reminder: If Present, add to problem list LDL Reminder: If No, please order W/I first 24hr of stay PT Order Reminder: If No, please order Venous thromboembolism Inpatient Core Measures VTE Risk Factors: Age > 40 [facility] prophylaxis d/t No contraindications No VTE Pharm Prophylaxis d/t No contraindications Inclusion Criteria - Per Current guidelines, there needs to be overlap - treatment for the first 5 days of Warfarin therapy. - Parenteral Anticoagulation (IV or SC) needs to be - given along with Warfarin therapy. VTE Diagnosis No VTE Type NONE VTE Confirmed by (Test) NONE Problem List As ranked by this Provider includes Assessment & Plan 1. Carotid stenosis, bilateral HOME MEDS Home Med List Acetylcysteine (NAC) 600 MG CAPSULE 1 CAP PO BID KIDNEYS (Reported) Albuterol Sulfate (Proair Hfa) 90 MCG HFA.AER.AD 2 PUF INH PRN ASTHMA ( Reported) Amlodipine Besylate 5 MG TABLET 1 TAB PO DAILY Blood pressure Atorvastatin Calcium (Lipitor) 10 MG TABLET 1 TAB PO DAILY CHOLESTEROL ( Reported) Cetirizine HCl (Zyrtec) 10 MG TABLET 1 TAB PO DAILY PRN ALLERGIES (Reported) Cholecalciferol (Vitamin D3) (Vitamin D) 2,000 UNIT CAPSULE 1 CAP PO DAILY SUPPLEMENT (Reported) Citalopram Hydrobromide (Citalopram HBr) 20 MG TABLET 1 TAB PO QPM MENTAL HEALTH (Reported) Clopidogrel Bisulfate (Plavix) 75 MG TABLET 1 TAB PO DAILY TIA Cyanocobalamin (Vitamin B-12) 1,000 MCG TABLET 1 TAB PO DAILY SUPPLEMENT ( Reported) Ezetimibe (Zetia) 10 MG TABLET 1 TAB PO QAM CHOLESTEROL (Reported) Gemfibrozil 600 MG TABLET 1 TAB PO BID high triglyceride Magnesium Oxide (Magnesium) 400 MG CAPSULE 1 CAP PO TID SUPPLEMENT (Reported) Metformin HCl 1,000 MG TABLET 1 TAB PO BID DM (Reported) Montelukast Sodium 10 MG TABLET 1 TAB PO DAILY ASTHMA/ALLERGIES (Reported) Multivitamin (Multi-Day Vitamins) 1 EACH TABLET 1 TAB PO DAILY SUPPLEMENT ( Reported) Multivitamin (Daily Multiple Vitamin) 1 EACH TABLET 1 TAB PO DAILY PROPHO ( Reported) Pantoprazole Sodium 40 MG TABLET.DR 1 TAB PO DAILY AC GI (Reported) Prednisone 20 MG TABLET 2 TAB PO DAILY PRE OP (Reported)
--- NOTE | 2016-06-28 14:22 | Patient Discharge Instructions ---
Discharge Instructions General Discharge Information You were seen/treated for: bilateral carotid stenosis You had these procedures: carotid arteriogram Watch for these problems: Any symptoms suggestive of weakness, headaches, blurry vision, dizziness, loss of consciousness. Nausea and vomitting. Fever greater than 101.5. Other wound care: Keep wound clean and dry. Diet Continue normal diet: Yes Recommended Diet: Diabetic Activity Full Activity/No Limits: No Activity Self Limited: Yes Pounds, do NOT lift more than: 5 Additional ACTIVITY Info: Keep activity level low unless or until otherwise indicated by Dr. Huynh. Acute Coronary Syndrome Inclusion Criteria At DC or during hospital stay patient has or had the following: ACS DIAGNOSIS No Discharge Core Measures Meds if any: Prescribed or Continued at Discharge Meds if any: NOT Prescribed or Continued at Discharge Congestive Heart Failure Inclusion Criteria At DC or during hospital stay patient has or had the following: CHF DIAGNOSIS No Discharge Core Measures Meds if any: Prescribed or Continued at Discharge Meds if any: NOT Prescribed or Continued at Discharge Cerebrovascular accident Inclusion Criteria At DC or during hospital stay patient has or had the following: CVA/TIA Diagnosis No Discharge Core Measures Meds if any: Prescribed or Continued at Discharge Meds if any: NOT Prescribed or Continued at Discharge Venous thromboembolism Inclusion Criteria VTE Diagnosis No VTE Type NONE VTE Confirmed by (Test) NONE Discharge Core Measures - Per Current guidelines, there needs to be overlap - treatment for the first 5 days of Warfarin therapy. - If discharged on Warfarin prior to 5 days of - overlap therapy, the patient will need to be - assessed for post discharge needs including - *Post discharge parental anticoagulation - *Warfarin and/or parental anticoagulation education - *Follow up date to check INR post discharge At least 5 days overlap therapy as Inpatient No Meds if any: Prescribed or Continued at Discharge Note: Overlap Therapy is Warfarin and Anticoagulant Meds if any: NOT Prescribed or Continued at Discharge
--- NOTE | 2016-06-28 14:26 | Surgical Discharge Summary ---
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 Psychosocial History Who Do You Live With? Spouse What is Your Primary Language? Sinhala Review of Systems: SEE H&P Hospital Course Course Attending Physician: JONATAN MESA,[facility] Primary Care Physician: JUNITO MESA,[facility] Course: Luda was admitted to the hospital on 06/28/2016 for an arteriogram of her bilateral carotid arteries. She tolerated the procedure well. She was transferred to a general surgical floor. She remained supine for several hours following her case. Her diet was advanced and tolerated. She received IV hydration. Her vital signs were stable and within normal limits. Her pain was well controlled. She was neurologically intact. She was deemed appropriate for discharge. Complications: NONE Allergies: Coded Allergies: aspirin (RASH ALL OVER, RINGING IN THE EARS 05/10/16) erythromycin base (RASH ALL OVER 05/10/16) melon (HANDS SWELL, ITCH, THROAT ITCHES 05/10/16) Disposition Summary Disposition Principal Diagnosis: Bilateral carotid stenosis Additional Diagnosis: None Discharge Disposition: home or self care Discharge Instructions General Discharge Information Code Status: Full Code Patient's Diet: Diabetic, advance as tolerated Patient's Activity: No bending or heavy lifting/straining until otherwise indicated by Dr. Huynh. Follow-Up Instructions/Appts: Please call or contact Dr. Huynh's office to arrange/confirm follow up appointment. Medications at Discharge Discharge Medications: Continue taking these medications: Ezetimibe (Zetia) 10 MG TABLET 1 Tablet ORAL Every Morning Qty = 90 Comments: Last Taken:05/28/16 Time:1000 Albuterol Sulfate (Proair Hfa) 90 MCG HFA.AER.AD 2 Puff Inhale through mouth as needed for ASTHMA Comments: NOT GIVEN IN HOSPITAL Citalopram Hydrobromide (Citalopram HBr) 20 MG TABLET 1 Tablet ORAL Every night Qty = 90 Comments: Last Taken:05/27/16 Time:2200 Metformin HCl (Metformin HCl) 1,000 MG TABLET 1 Tablet ORAL TWICE DAILY Qty = 60 Comments: NOT GIVEN IN HOSPITAL Montelukast Sodium (Montelukast Sodium) 10 MG TABLET 1 Tablet ORAL DAILY Qty = 30 Comments: Last Taken:05/28/16 Time:1000 Pantoprazole Sodium (Pantoprazole Sodium) 40 MG TABLET.DR 1 Tablet ORAL DAILY BEFORE BREAKFAST Qty = 90 Comments: Last Taken:05/28/16 Time:0700 Multivitamin (Multi-Day Vitamins) 1 EACH TABLET 1 Tablet ORAL DAILY Comments: Last Taken:05/28/16 Time:1000 Cholecalciferol (Vitamin D3) (Vitamin D) 2,000 UNIT CAPSULE 1 Capsule ORAL DAILY Comments: Last Taken: Time: Cyanocobalamin (Vitamin B-12) 1,000 MCG TABLET 1 Tablet ORAL DAILY Comments: Last Taken: Time: Clopidogrel Bisulfate (Plavix) 75 MG TABLET 1 Tablet ORAL DAILY Qty = 60 Comments: Last Taken: 05/28/16 Time: 9 AM Gemfibrozil (Gemfibrozil) 600 MG TABLET 1 Tablet ORAL TWICE DAILY Qty = 60 Comments: Last Taken:05/28/16 Time:1000 Atorvastatin Calcium (Lipitor) 10 MG TABLET 1 Tablet ORAL DAILY Comments: Last Taken:05/27/16 Time:2200 Magnesium Oxide (Magnesium) 400 MG CAPSULE 1 Capsule ORAL THREE TIMES DAILY Comments: Last Taken:05/28/16 Time:1000 Amlodipine Besylate (Amlodipine Besylate) 5 MG TABLET 1 Tablet ORAL DAILY Qty = 30 Comments: Last Taken:05/28/16 Time:1000 Cetirizine HCl (Zyrtec) 10 MG TABLET 1 Tablet ORAL DAILY as needed for ALLERGIES Prednisone (Prednisone) 20 MG TABLET 2 Tablet ORAL DAILY Instructions: TAPERING DOSE Multivitamin (Daily Multiple Vitamin) 1 EACH TABLET 1 Tablet ORAL DAILY Acetylcysteine (NAC) 600 MG CAPSULE 1 Capsule ORAL TWICE DAILY Copies To: JUNITO MESA,LAYA
[2016-06-28 14:41] VITALS: BP 110/60
--- NOTE | 2016-06-28 16:37 | PN- Vascular Surgery ---
Subjective Subjective: Post op check: Patient tolerated procedure well, was transferred to general surgical floor. Has no c/o pain at this time. Denies chest pain, shortness of breath and difficulty breathing. Denies nasuea and vomitting. Objective Vital Signs and I&Os Vital Signs Date Time Temp Pulse Resp B/P Pulse O2 O2 Flow FiO2 Ox Delivery Rate 06/28 1446 96 Nasal 2.0L Cannula 06/28 1441 97.7 73 18 110/60 96 Intake & Output 06/28 1600 06/28 0800 06/28 0000 06/27 1600 06/27 0806/27 0000 Intake Total Output Total Balance Patient 187 lb Weight Physical Exam: General: Alert and oriented x3, no acute distress Cardiac: RRR, s1s2 Pulm: C T A bilaterally Abdomen: Non-tender, non-distended Extremities: Moves all extremities, distal sensation intact. Skin warm and well perfused. DP pulse palpable to right foot. Bilateral calves soft and non- tender Surgical site: Right groin: Dressing dry and intact. Compartments soft, no evidence of hematoma. Assessment/Plan Assessment/Plan This is a 65 year old female with a PMH sig for tia, dm, htn, hld, respiratory. POD 0, s/p carotid arteriogram. -supine until 5 pm -IV hydration overnight -F/U Labs in am -ADA diet as tolerated -Continue home meds, prednisone 20 tonight and tomorrow as part of patient's taper dose -Plan on d/c to home tomorrow -Will d/w Core Measures/Miscellaneous Venous Thromboembolism VTE Risk Factors: Age > 40 VTE Contraindications: No Contraindications VTE Diagnosis: No VTE Type: NONE VTE Confirmed by (Test): NONE Beta Jo Is Beta Jo a Home Med? No Antibiotics Is Patient on Antibiotics? No
--- NOTE | 2016-06-28 17:02 | RADIOLOGY REPORT ---
EXAMINATION: XR CERVICAL SPINE IN OR CLINICAL INFORMATION: Left-sided carotid angiogram. COMPARISON: None TECHNIQUE: Fluoroscopy and filming was provided in the operating room for left carotid angiogram. 8 minutes and 13 seconds of fluoroscopy time was utilized. 42 mL of contrast media (Optiray [id number]) was utilized during this case. FINDINGS: 4 sets of angiographic films are submitted. 3 are from an aortic arch injection and 1 is from a left subclavian injection. No films are submitted from a selective left carotid angiogram. IMPRESSION: Imaging and fluoroscopy provided in the OR as described above.
[2016-06-28 22:21] VITALS: BP 140/60
[2016-06-29 07:18] VITALS: BP 112/82
--- NOTE | 2016-06-29 08:23 | PN- Vascular Surgery ---
Subjective Subjective: No complaints. Denies pain. Out of bed without difficulty. No dizziness. No shortness of breath. No chest pains. Tolerating diet. No nausea. Voiding well. Anticipates discharge to home today. Objective Vital Signs and I&Os Vital Signs Date Time Temp Pulse Resp B/P Pulse O2 O2 Flow FiO2 Ox Delivery Rate 06/29 717 97.4 66 20 112/82 97 Room Air 06/28 2222 94 06/28 222 98.1 88 20 140/60 20 06/28 1700 98 Room Air 06/28 1446 96 Nasal 2.0L Cannula 06/28 144 97.7 73 18 110/60 96 Intake & Output 06/29 1600 06/29 0800 06/29 0000 06/28 1600 06/28 0800 06/28 0000 Intake Total 1050 Output Total Balance 1050 Intake, IV 600 Intake, Oral 450 Patient 187 lb Weight Physical Exam: General - alert & oriented x 3. comfortable. no acute distress. Lungs - clear bilaterally. no w/r/r. Cardiac - s1s2. reg. Abdomen - soft. nontender. Extremities - warm bilaterally. right groin dressing c/d/i. no hematoma. nvi. Neuro - speech smooth & coordinated. no focal deficits. Assessment/Plan Assessment/Plan This is a 65 year old female with a PMH sig for tia, dm, htn, hld, POD#1s/p carotid arteriogram oob without difficulty labs appear stable tolerating diet home meds ordered continue plavix daily d/c home today d/w Core Measures/Miscellaneous Venous Thromboembolism VTE Risk Factors: Age > 40 VTE Contraindications: No Contraindications VTE Diagnosis: No VTE Type: NONE VTE Confirmed by (Test): NONE Beta Jo Is Beta Jo a Home Med? No Antibiotics Is Patient on Antibiotics? No
[2016-06-29 08:24] LABS: ABSOLUTE BASOPHIL COUNT 0 /CUMM (0.0-0.2); ABSOLUTE EOSINOPHIL COUNT 0.1 /CUMM (0.0-0.7); ABSOLUTE GRANULOCYTE CT 6.1 /CUMM (1.4-6.5); ABSOLUTE LYMPH COUNT 2.7 /CUMM (1.2-3.4); BASOPHIL % 0.4 % (0.0-2.0); EOSINOPHIL % 0.6 % (0-5); HEMATOCRIT 29.5 % (37-47); MEAN CORPUSCULAR HGB 30.1 PG (27.0-31.0); MEAN CORPUSCULAR HGB CONC 33.2 G/DL (33.0-37.0); MEAN CORPUSCULAR VOLUME 90.9 FL (81.0-99.0); MEAN PLATELET VOLUME 8.5 FL (7.4-10.4); PLATELET COUNT 355 /CUMM (130-400); RBC DISTRIBUTION WIDTH 13.6 % (11.5-14.5); RED BLOOD CELL CT 3.25 /CUMM (4.20-5.40); WHITE BLOOD CELL COUNT 9.9 /CUMM (4.8-10.8)
[2016-06-29 08:58] VITALS: BP 130/80
[2016-06-29 09:12] LABS: GRANULOCYTE % 61.6 % (42.2-75.2)
--- NOTE | 2016-07-05 10:31 | Operative Report ---
Operative/Inv Procedure Report Surgery Date: 06/28/16 Name of Procedure: -Ultrasound-guided right common femoral artery access -Arch aortogram -Nonselective right carotid angiogram Pre-Operative Diagnosis: Transient ischemic attack with MR showing possible distal ICA stenosis Post-Operative Diagnosis: Same Estimated Blood Loss: scant Surgeon/Mechanical Development Engineer: JONATAN MESA,BRIANNE/RADHA MESA, CESAR Anesthesia: moderate sedation Operative/Procedure Note Note: 65-year-old lady who about a month ago was admitted to [facility] with forgetfulness and wart finding difficulty. MRA of the neck was read as distal left ICA stenosis. Because of patient's chronic kidney disease, a CT of the neck was not performed. The patient was treated with antiplatelet therapy. A carotid ultrasound performed in my office showed a small plaque at bifurcation without significant stenosis. Otherwise, the entire cervical ICA was free of stenosis. With the patient's request in order to get to the bottom of things, I recommended carotid angiogram which she uses much less contrast in compared to CTA. 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 The nature of the procedure including is possible complications including but not limited to bleeding, infection, kidney failure, stroke, injury to vessels, and blood clots were discussed. An informed consent was obtained. Patient was taken to the operating room and placed supine on the table. After satisfactory induction of anesthesia, the patient was prepped and draped in standard surgical fashion. Using an ultrasound, right common femoral artery was accessed using micropuncture technique. Then a long Bentson wire was advanced into the descending thoracic aorta. The micropuncture sheath was exchanged with a short 5 Bangladeshi sheath. Then 100 cm pigtail catheter was advanced over the wire and ultimately advanced into the ascending aortic arch. From this position , arch aortogram was performed with 45 JOHNSON angle with findings outlined below. Attempts at selecting the left common carotid artery was made which was unsuccessful. Because the arch aortogram included the mandible superiorly and we were able to see the left common, external and internal carotid artery all the way up into the base of the skull, I decided to stop the procedure as I accomplished what we came here to do. Wires and catheters were removed. The puncture site was closed using Exsoseal device. Manual pressure was applied. Sterile dressing was then applied to the right groin. The patient tolerated the procedure well. She was neurologically intact. She was taken to the PACU in stable condition. Radiographic findings: Patent aortic arch and branches with no significant disease Patent left common carotid, external carotid and cervical ICA.
== END 2016-06-29 11:15 | DRG 68 ==
LOC: ENRESERVTM → ENRESERVDT → SDA 02:38 → ENPENDDIS 02:38 → 2NA 14:09
PROVIDERS: Nurse Practitioner; ADMIT Surgery
PROC: B3171ZZ Fluoroscopy of Left Internal Carotid Artery using Low Osmolar Contrast (ICD-10-PCS; principal; 2016-06-28)
DX: I65.23 Occlusion and stenosis of bilateral carotid arteries (principal); E11.22 Type 2 diabetes mellitus with diabetic chronic kidney disease; J45.909 Unspecified asthma, uncomplicated; Z86.73 Personal history of transient ischemic attack (TIA), and cerebral infarction without residual deficits; G90.2 Horner's syndrome; I12.9 Hypertensive chronic kidney disease with stage 1 through stage 4 chronic kidney disease, or unspecified chronic kidney disease; N18.9 Chronic kidney disease, unspecified; Z79.84 Long term (current) use of oral hypoglycemic drugs; E66.9 Obesity, unspecified; Z68.31 Body mass index [BMI] 31.0-31.9, adult; E78.5 Hyperlipidemia, unspecified; M10.9 Gout, unspecified
CPT/HCPCS: 2NASP; 36415; 72040; 82436; C1725; C1760; J1644; J1815; J2405; J2720; J3490; Q9965; Q9967

== ENCOUNTER 2017-12-13 20:53 | Inpatient (IN) | payer OTHER ==
[~2017-12-13] VITALS: Ht 162.6 cm; Wt 91.6 kg
[~2017-12-13 20:53] MED LIST changes: +NAC600 M1 PO
[2017-12-13 21:33] LABS: ABSOLUTE BASOPHIL COUNT 0.1 /CUMM (0.0-0.2); ABSOLUTE EOSINOPHIL COUNT 0.4 /CUMM (0.0-0.7); ABSOLUTE GRANULOCYTE CT 2.1 /CUMM (1.4-6.5); ABSOLUTE LYMPH COUNT 2.3 /CUMM (1.2-3.4); ABSOLUTE MONOCYTE COUNT 0.6 /CUMM (0.10-0.60); BASOPHIL % 1.5 % (0.0-2.0); EOSINOPHIL % 6.5 % (0-5); GRANULOCYTE % 38.3 % (42.2-75.2); MEAN CORPUSCULAR HGB 28.1 PG (27.0-31.0); MEAN CORPUSCULAR HGB CONC 32.9 G/DL (33.0-37.0); MEAN CORPUSCULAR VOLUME 85.4 FL (81.0-99.0); MEAN PLATELET VOLUME 8.8 FL (7.4-10.4); PLATELET COUNT 318 /CUMM (130-400); RBC DISTRIBUTION WIDTH 14.2 % (11.5-14.5); RED BLOOD CELL CT 3.63 /CUMM (4.20-5.40); WHITE BLOOD CELL COUNT 5.4 /CUMM (4.8-10.8)
--- NOTE | 2017-12-13 21:55 | RADIOLOGY REPORT ---
EXAMINATION: XR CHEST CLINICAL INFORMATION: Cardiomegaly. Syncope. COMPARISON: Portable chest 05/10/2016 TECHNIQUE: 2 views of the chest were obtained. FINDINGS: There is linear atelectasis/linear scarring at left lung base. There is no focal consolidation. There is no pulmonary vascular congestion. There is no pleural effusion or pneumothorax. Heart size is normal. The cardiac and mediastinal contours are normal. There are calcifications of the aortic arch. There is orthopedic plate and screw at the lower cervical spine. There is an old healed fracture of the right lateral eighth rib. IMPRESSION: The heart size is normal. There is no acute abnormality of the chest.
--- NOTE | 2017-12-13 21:56 | CT SCAN REPORT ---
CT HEAD WITHOUT IV CONTRAST CT CERVICAL SPINE WITHOUT IV CONTRAST INDICATION: Fall. COMPARISON: Brain MRI 05/27/2016. TECHNIQUE: Multidetector CT acquisitions of the head and cervical spine were obtained without IV contrast. Multiplanar reformats were acquired and utilized for image interpretation. FINDINGS: HEAD: There is no intracranial hemorrhage, hydrocephalus, extra-axial surface collection, midline shift, or other herniation pattern. Gerber to white matter differentiation is diffusely maintained without evidence of an evolved acute territorial infarct. The basilar cisterns are preserved. No significant soft tissue abnormality. No acute osseous abnormality. The paranasal sinuses and the mastoid air cells are well-aerated. CERVICAL SPINE: There are postoperative changes following ACDF at C4-C7. Surgical hardware appears intact and there is no evidence of hardware loosening. Mild degenerative anterior subluxation of C2 on C3 and C3 on C4. There is no acute fracture and there is no acute subluxation. The craniocervical and atlantoaxial articulations are normal. There is no prevertebral soft tissue swelling. There is a large approximately 2.4 cm nodule within the left thyroid lobe for which thyroid ultrasound is recommended. Imaged upper lungs are clear. Retropharyngeal course of the carotid arteries bilaterally. IMPRESSION: 1. No acute intracranial abnormality. 2. No acute osseous abnormality within the cervical spine. Postoperative changes following C4-C7 ACDF. Surgical hardware is intact. 3. There is a large approximately 2.4 cm nodule within the left thyroid lobe for which thyroid ultrasound is recommended.
--- NOTE | 2017-12-14 01:04 | ED SYNCOPE COMPLAINT ---
History of Present Illness General Chief Complaint: General Adult Stated Complaint: " FAINTED AT HOME,SOB,WEAKNESS,YOUNG,PALPITATIONS" Source: patient, family, old records, EMS Exam Limitations: no limitations Vital Signs & Intake/Output Vital Signs & Intake/Output Vital Signs Date Time Temp Pulse Resp B/P B/P Pulse O2 O2 Flow FiO2 Mean Ox Delivery Rate 12/14 0047 97.5 82 18 136/70 95 Room Air 12/13 2108 97.8 89 17 136/79 97 Room Air ED Intake and Output 12/14 0000 12/13 1200 Intake Total Output Total Balance Patient 202 lb Weight Weight Reported by Patient Measurement Method Allergies Coded Allergies: aspirin (RASH ALL OVER, RINGING IN THE EARS 05/10/16) erythromycin base (RASH ALL OVER 05/10/16) melon (HANDS SWELL, ITCH, THROAT ITCHES 05/10/16) Reconcile Medications Albuterol Sulfate (Proair Hfa) 90 MCG HFA.AER.AD 2 PUF INH PRN ASTHMA ( Reported) Amlodipine Besylate 5 MG TABLET 1 TAB PO DAILY Blood pressure Atorvastatin Calcium (Lipitor) 10 MG TABLET 1 TAB PO DAILY CHOLESTEROL ( Reported) Cholecalciferol (Vitamin D3) (Vitamin D) 2,000 UNIT CAPSULE 1 CAP PO DAILY SUPPLEMENT (Reported) Citalopram Hydrobromide (Citalopram HBr) 20 MG TABLET 1 TAB PO QPM MENTAL HEALTH (Reported) Clopidogrel Bisulfate (Plavix) 75 MG TABLET 1 TAB PO DAILY TIA Cyanocobalamin (Vitamin B-12) 1,000 MCG TABLET 1 TAB PO DAILY SUPPLEMENT ( Reported) Gemfibrozil 600 MG TABLET 1 TAB PO BID high triglyceride Magnesium Oxide (Magnesium) 400 MG CAPSULE 1 CAP PO TID SUPPLEMENT (Reported) Metformin HCl 1,000 MG TABLET 1 TAB PO BID DM (Reported) Montelukast Sodium 10 MG TABLET 1 TAB PO DAILY ASTHMA/ALLERGIES (Reported) Pantoprazole Sodium 40 MG TABLET.DR 1 TAB PO DAILY AC GI (Reported) Triage Note: PT TO ED FROM HOME AFTER WITNESSED SYNCOPAL EPISODE. PT WAS WALKING TO KITCHEN, THEN BEGAN TO FEEL THOUGH THE ROOM WAS SPINNING. PT TRIED TO SIT DOWN, THEN WOKE UP ON THE GROUND. WITNESSED BY DAUGHTER. HX TIA, ON PLAVIX. BLOOD SUGAR 165 IN TRIAGE. VITALS STABLE. PERRLA. Triage Nurses Notes Reviewed? yes Timing: recent history Precipitating Factors: lightheadedness Context: became dizzy/fainted Loss of Consciousness: brief (seconds) (45) Associated Symptoms: dizziness, syncope, weakness LMP (ages 10-50): post menopausal : No Patient currently breastfeeds: No HPI: Prior to admission patient felt lightheaded sat herself on the floor and loss consciousness for 45 seconds. She awoke with palpitations. She denies fever chills nausea vomiting diarrhea abdominal pain chest pain shortness breath headache dysuria rash bleeding change in bowel bladder habit. Past History Travel History Traveled to [place] past 21 day No Medical History Any Pertinent Medical History? 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 Hx Contributory? No Review of Systems Review of Systems Constitutional: Reports: no symptoms. EENTM: Reports: no symptoms. Respiratory: Reports: no symptoms. Cardiovascular: Reports: no symptoms. GI: Reports: no symptoms. Genitourinary: Reports: no symptoms. Musculoskeletal: Reports: no symptoms. Skin: Reports: no symptoms. Neurological/Psychological: Reports: see HPI. All Other Systems: Reviewed and Negative Physical Exam Physical Exam General Appearance: well developed/nourished, alert, awake, comfortable, obese Head: atraumatic, normal appearance Eyes: Bilateral: normal appearance, PERRL, EOMI. Ears, Nose, Throat: normal pharynx, normal ENT inspection, hearing grossly normal Neck: normal inspection, supple, full range of motion, no midline tenderness Respiratory: normal breath sounds, chest non-tender, no respiratory distress, quiet respiration, lungs clear Cardiovascular: regular rate/rhythm, normal peripheral pulses, norml femoral pulses equa Gastrointestinal: normal bowel sounds, soft, non-tender, no organomegaly Back: normal inspection, normal range of motion, no vertebral tenderness Extremities: normal inspection, normal capillary refill, normal range of motion, no edema Psychiatric: awake, alert, oriented x 3 Cranial Nerves: normal hearing, normal speech, PERRL Coordination/Gait: normal finger to nose, normal gait Motor/Sensory: no motor/sensory deficits Reflexes: 2+: bicep (R), bicep (L). Skin: intact, normal color, warm/dry Lymphatic: no anterior cervical buck Core Measures ACS in differential dx? No No ASA d/t Allergy CVA/TIA Diagnosis: No Sepsis Present: No Sepsis Focused Exam Completed? No Progress Differential Diagnosis: pacemaker malfunction, subarachnoid hem., TIA/CVA Plan of Care: Orders Procedure Date/time Status Heart Healthy Diet 12/14 B Active Pathway - chart 12/14 205 Active House Staff 12/14 205 Active Patient Data 12/14 205 Active Code Status 12/14 205 Active Patient Data 12/14 0140 Active OXYGEN SETUP (GEN) 12/14 101 Active Saline Lock 12/14 101 Active Admit to inpatient 12/14 010 Active Vital Signs 12/14 101 Active Activity/Ambulation 12/14 101 Active Code Status 12/14 010 Complete Intake & Output 12/14 0049 Active VTE Mechanical Prophylaxis 12/14 UNK Active MISTAKE 12/14 UNK Active Telemetry/Practice Or Student Teacher 12/14 UNK Active FingerStick- Glucose 12/14 UNK Active FingerStick- Glucose 12/13 2130 Active TSH REFLEX 12/14 2115 Complete TROPONIN LEVEL 12/14 2115 Complete PHOSPHORUS 12/14 2115 Complete MAGNESIUM 12/14 2115 Complete COMPREHENSIVE METABOLIC PANEL 12/14 2115 Complete CBC WITHOUT DIFFERENTIAL 12/14 2115 Complete EKG 12/14 2055 Active Current Medications Sig/Allan Start time Last Medication Dose Stop Time Status Admin Magnesium Sulfate 1 GM ONCE ONE 12/14 0145 AC 12/14 (Mag Sulfate in D5) 12/14 0544 0204 Dextrose/Water 100 ML (D5W) Laboratory Tests 12/13/172122: Anion Gap 16, Estimated GFR 20 L, BUN/Creatinine Ratio 15.4, Glucose 155 H, Calcium 9.3, Phosphorus 3.5, Magnesium 1.0 L, Total Bilirubin 0.2, AST 29, ALT 29, Alkaline Phosphatase 93, Troponin I < 0.01, Total Protein 7.1, Albumin 4.5, Globulin 2.6, Albumin/Globulin Ratio 1.7, TSH &T3 &Free T4 Intrp 1.620, CBC w Diff NO MAN DIFF REQ, RBC 3.63 L, MCV 85.4, MCH 28.1, MCHC 32.9 L, RDW 14.2, MPV 8.8, Gran % 38.3 L, Lymphocytes % 42.5, Monocytes % 11.2 H, Eosinophils % 6.5 H, Basophils % 1.5, Absolute Granulocytes 2.1, Absolute Lymphocytes 2.3, Absolute Monocytes 0.6, Absolute Eosinophils 0.4, Absolute Basophils 0.1 Diagnostic Imaging: Viewed by Me: Radiology Read, CT Scan. Discussed w/RAD: Radiology Read, CT Scan. Radiology Impression: 1. No acute intracranial abnormality. 2. No acute osseous abnormality within the cervical spine. Postoperative changes following C4-C7 ACDF. Surgical hardware is intact. 3. There is a large approximately 2.4 cm nodule within the left thyroid lobe for which thyroid ultrasound is recommended. CXR Impression: The heart size is normal. There is no acute abnormality of the chest. Initial ED EKG: normal axis, normal intervals, normal p-waves, normal QRS complex, normal sinus rhythm Prior EKG: unchanged Rhythm Strip: normal sinus rhythm Departure Departure Disposition: STILL A PATIENT Condition: Stable Clinical Impression Primary Impression: Syncope and collapse Secondary Impressions: Hypomagnesemia Referrals: Marquita MESA,Praveena (PCP/Family) Departure Forms: Customer Survey General Discharge Information Admission Note Spoke With: Alexandro Grant MD Documentation of Exam: Documentation of any treatments & extenuating circumstances including Concerns Regarding Discharge (functional status, medication knowledge or non-compliance, living conditions, etc.) that warrant an admission rather than observation: Cardiac monitoring electrolyte replacement serial lab exam medication adjustment cardiology evaluation continuing care discharge planning
--- NOTE | 2017-12-14 01:44 | History & Physical ---
Delon Ash 12/14/17 0143: General Information and HPI MD Statement: I have seen and personally examined SALAS CHEN and documented this H&P. The patient is a 66 year old F who presented with a patient stated chief complaint of [syncopal episode]. Source of Information: patient Exam Limitations: no limitations History of Present Illness: The patient is a 66-year-old lady with a past medical history significant for hypertension, hyperlipidemia, asthma, chronic kidney disease, diabetes mellitus, TIA, Ely's syndrome who presented to ED with chief complaint of fainting at home, shortness of breath, lightheadedness, and palpitations afterwards. The patient was working to her kitchen when she felt dizzy, the room started to spin around, and everything was fuzzy and got dark, she sat on the floor. Her daughter was observing her during this episode. And she has told her that she was on the floor for 45 seconds. After this episode she had palpitations for 5- 10 minutes, but no sweating. This episode happened around 7:30 PM. This morning she felt normal, went to work and did not have any symptoms of lightheadedness, chest pain, chest pressure, dizziness, nausea, vomiting, abdominal pain, feeling any numbness or weakness in her face or extremities, sweating, palpitation, diarrhea, dysuria, frequency, fever, chills, or sweating, or losing bowel or urine control, or abnormal movements. She had one episode of TIA previously, this time she did not experience any symptoms of TIA, or seizure, this event was witnessed by her daughter and no abnormal movement was reported. She reports that her food and fluid intake is normal and she has been drinking more fluid in order to improve her kidney function recommended by her lining maker, Dr. Cat. Since she had a TIA, magnesium was found to be low, last time it was 1.5. After the TIA, Dr. Huynh has done an MRI and carotid Doppler ultrasound which has revealed normal results. She denies any current or recent fever, sinus infection, chills, or sweating. She reports that she had some episodes of palpitation previously you to anxiety induced by some issues that her household-her mother who is 93 years old had a fall recently and was admitted at [facility], now she is discharged to home, her son had an alcoholic rehab and has been home from this Monday. These ongoing issues has caused her palpitation occasionally. Previously she had Holter monitoring due to palpitations which did not find any abnormalities. She does not report any palpitation, lightheadedness, dizziness upon changing position, getting come from laying down or sitting position. She also has a history of thyroid mass which was found to be benign after pathology study was normal. 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 Social history: She used to smoke when she was young she quit more than 30 years ago, she occasionally drinks wine, she denies any recreational drug use Allergies/Medications Allergies: Coded Allergies: aspirin (RASH ALL OVER, RINGING IN THE EARS 05/10/16) erythromycin base (RASH ALL OVER 05/10/16) melon (HANDS SWELL, ITCH, THROAT ITCHES 05/10/16) Home Med list Albuterol Sulfate (Proair Hfa) 90 MCG HFA.AER.AD 2 PUF INH PRN ASTHMA ( Reported) Amlodipine Besylate 5 MG TABLET 1 TAB PO DAILY Blood pressure Atorvastatin Calcium (Lipitor) 10 MG TABLET 1 TAB PO DAILY CHOLESTEROL ( Reported) Cholecalciferol (Vitamin D3) (Vitamin D) 2,000 UNIT CAPSULE 1 CAP PO DAILY SUPPLEMENT (Reported) Citalopram Hydrobromide (Citalopram HBr) 20 MG TABLET 1 TAB PO QPM MENTAL HEALTH (Reported) Clopidogrel Bisulfate (Plavix) 75 MG TABLET 1 TAB PO DAILY TIA Cyanocobalamin (Vitamin B-12) 1,000 MCG TABLET 1 TAB PO DAILY SUPPLEMENT ( Reported) Gemfibrozil 600 MG TABLET 1 TAB PO BID high triglyceride Magnesium Oxide (Magnesium) 400 MG CAPSULE 1 CAP PO TID SUPPLEMENT (Reported) Metformin HCl 1,000 MG TABLET 1 TAB PO BID DM (Reported) Montelukast Sodium 10 MG TABLET 1 TAB PO DAILY ASTHMA/ALLERGIES (Reported) Pantoprazole Sodium 40 MG TABLET.DR 1 TAB PO DAILY AC GI (Reported) Compliance With Home Meds: GOOD Past History Travel History Traveled to [place] past 21 day No Medical History Neurological: TIA, ELY'S syndrome EENT: NONE Cardiovascular: hypertension, hyperlipidemia Respiratory: asthma Gastrointestinal: NONE Hepatic: NONE Renal: chronic kidney disease Musculoskeletal: CERVICAL DISEASE Psychiatric: NONE Endocrine: diabetes Blood Disorders: NONE Cancer(s): NONE METAL POURER/Reproductive: NONE History of MRSA: No History of VRE: No History of CDIFF: No Influenza Vaccine: 11/28/15 Surgical History Surgical History: unobtainable Past Family/Social History Family History Relations & Conditions if any MOTHER FH: stroke, Onset: 50-60. Psychosocial History Who Do You Live With? spouse Primary Language: Guatemalan Functional Ability ADLs Independent: dressing, eating, toileting, bathing. Ambulation: independent IADLs Independent: shopping, housework, finances, food prep, telephone, transportation , medication admin. Review of Systems Review of Systems Constitutional: Reports: see HPI. Exam & Diagnostic Data Last 24 Hrs of Vital Signs/I&O Vital Signs Date Time Temp Pulse Resp B/P B/P Pulse O2 O2 Flow FiO2 Mean Ox Delivery Rate 12/14 0533 97.6 80 20 115/62 95 Room Air 12/14 0359 89 18 94 Room Air 12/14 0047 97.5 82 18 136/70 95 Room Air 12/13 2108 97.8 89 17 136/79 97 Room Air Intake & Output 12/14 0800 12/14 0000 12/13 1600 Intake Total 200 Output Total Balance 200 Intake, IV 200 Patient 202 lb 202 lb Weight Weight Reported by Patient Reported by Patient Measurement Method Physical Exam General Appearance Alert, Oriented X3, Cooperative, No Acute Distress Skin No Rashes Skin Temp/Moisture Exam: Warm/Dry Sepsis Skin Exam (color): Normal for Ethnicity HEENT Atraumatic, PERRLA Neck Supple, No JVD, left sided thyroid mass 2.5 x 2.5 cm Cardiovascular Regular Rate, Normal S1, Normal S2, Systolic murmur 2/6 in apical area Lungs Clear to Auscultation, Normal Air Movement Abdomen Normal Bowel Sounds, Soft, No Tenderness, No Hepatospenomegaly Neurological Normal Speech, Strength at 5/5 X4 Ext, Normal Tone, Sensation Intact, Cranial Nerves 3-12 NL Extremities No Clubbing, No Cyanosis, No Edema, Normal Pulses, No Tenderness/ Swelling Vascular Normal Pulses, Pulses Symmetrical Sepsis Peripheral Pulse Location: Dorsalis Pedis Sepsis Peripheral Pulse Exam: Normal Sepsis Cap Refill Exam: <2 Sec Last 24 Hrs of Labs/Mik: Laboratory Tests 12/14/17 0532: Anion Gap 16, Estimated GFR 22 L, BUN/Creatinine Ratio 17.3, Magnesium 2.0, CBC w Diff NO MAN DIFF REQ, RBC 3.49 L, MCV 85.1, MCH 28.4, MCHC 33.4, RDW 14.4, MPV 8.8, Gran % 33.8 L, Lymphocytes % 43.5, Monocytes % 14.0 H, Eosinophils % 7.7 H, Basophils % 1.0, Absolute Granulocytes 1.9, Absolute Lymphocytes 2.5, Absolute Monocytes 0.8 H, Absolute Eosinophils 0.4, Absolute Basophils 0.1 12/13/173: Anion Gap 16, Estimated GFR 20 L, BUN/Creatinine Ratio 15.4, Glucose 155 H, Calcium 9.3, Phosphorus 3.5, Magnesium 1.0 L, Total Bilirubin 0.2, AST 29, ALT 29, Alkaline Phosphatase 93, Troponin I < 0.01, Total Protein 7.1, Albumin 4.5, Globulin 2.6, Albumin/Globulin Ratio 1.7, TSH &T3 &Free T4 Intrp 1.620, CBC w Diff NO MAN DIFF REQ, RBC 3.63 L, MCV 85.4, MCH 28.1, MCHC 32.9 L, RDW 14.2, MPV 8.8, Gran % 38.3 L, Lymphocytes % 42.5, Monocytes % 11.2 H, Eosinophils % 6.5 H, Basophils % 1.5, Absolute Granulocytes 2.1, Absolute Lymphocytes 2.3, Absolute Monocytes 0.6, Absolute Eosinophils 0.4, Absolute Basophils 0.1 Assessment/Plan Assessment: The patient is a 66-year-old female with a past medical history significant for TIA, hypertension, hyperlipidemia, CKD, diabetes mellitus, and Ely syndrome who presented to ED with chief complaint of syncopal episode and loss of consciousness for 45 seconds. Syncopal episode: This episode was witnessed by her daughter. She had palpitation afterwards. She does not have any history of orthostatic hypotension, and she was not dehydrated. She should be evaluated to rule out cardiac origin. She also has a history of TIA, head CT scan did not show any acute pathology. She recently had carotid Doppler done with normal results. Plan: Continuous cardiac monitoring, broke beater consult, blood sugar was checked and it was normal. Check orthostatic vitals, echocardiogram, monitor blood sugar Hypomagnesemia: The patient has a history of low magnesium, this time it was 1.0. She has chronic kidney disease which could cause low magnesium. Plan: Replete magnesium with IV magnesium and recheck Chronic kidney disease stage IV: The patient has a baseline creatinine of 1.7- 2.2, she has a history of diabetes mellitus and hypertension which are the main causes of her CKD. Plan: Monitor renal function, avoid nephrotoxic agents, keep the patient hydrated, As Ranked By This Provider Problem List: 1. Syncope and collapse 2. Hypomagnesemia Core Measures/Misc (12/11) Acute Coronary Syndrome ACS Diagnosis: No Congestive Heart Failure Congestive Heart Failure Diagnosis No Cerebrovascular Accident CVA/TIA Diagnosis: No VTE (View Protocol) VTE Risk Factors Age>40 No Mechanical VTE Prophylaxis d/t N/A MechProphylax Ordered No VTE Pharm Prophylaxis d/t NA PharmProphylax ordered Sepsis (View protocol) Sepsis Present: No If YES complete Sepsis Event Note If YES complete Sepsis Event Note Min MESA,Stacey 12/14/17 0152: Core Measures/Misc (12/11) Sepsis (View protocol) If YES complete Sepsis Event Note If YES complete Sepsis Event Note Resident Review Statement Resident Statement: examined this patient, discussed with risk intern, agreed with risk intern, discussed with family Other Findings: Patient is a 66-year-old female, BIBA after syncopal episode at home. History is taken from the patient and according to her she was walking to the kitchen and suddenly felt that room is spinning. She tried to sit down but then woke up on the ground. It is witnessed by the daughter. She was having a lot of stress at the home including her mom who came back after the fall and fracture, and her son who is undergoing detox and need placement. She fell on the ground of around 45 seconds. She was completely asymptomatic in the morning. She was on the ground for 5-10 minutes. Afterwards she felt palpitation for 5-10 minutes. When she got up from the ground she was little bit woozy. She denies any change in the color of the skin, sweating, incontinence of the stool in the urine, tongue bite. She was having history of palpitation in the past that were to be due to anxiety. Holter monitoring in the past did not show any evidence of arrhythmia. She was also anemic at her baseline but never given any erythropoietin supplementation or blood transfusion. She was also having history of hypomagnesemia on supplementation but never had any diarrhea. She does have diabetes but denies for any evidence of peripheral neuropathy.She was given magnesium in the ED PMH-hypertension, hyperlipidemia, type 2 diabetes, TIA(Apr 2016), right sided Ely s/p cervical infusion in Jan 2016,asthma, stage 4 chronic kidney disease with a baseline creatinine ~1.7-2.2 thought to be 2/2 HTN/DM/NSAID use Vital signs at the time of admission-temperature 97.8, pulse 89, respirations 17 , blood pressure 136/79, SPO2 97% on room air. Blood sugar at the time of admission was 165. Blood workup showed-hemoglobin 10.2, hematocrit 31.0, MCV 85.4, platelet count 318, granulocyte 38.3, lymphocyte 42.5, monocyte 11.2, eosinophils 6.5, sodium 140, potassium 4.0, chloride 108, carbon dioxide 16, anion gap 16, BUN 37, creatinine 2.4, glucose 155, calcium 9.3, phosphorus 3.5, magnesium 1.0, AST 29, ALT 29, alkaline phosphatase 93, troponin I less than 0.01, albumin 4.5, TSH 1.620, CXR -The heart size is normal. There is no acute abnormality of the chest. CT scan of the head and cervical spine- 1. No acute intracranial abnormality. 2. No acute osseous abnormality within the cervical spine. Postoperative changes following C4-C7 ACDF. Surgical hardware is intact. 3. There is a large approximately 2.4 cm nodule within the left thyroid lobe for which thyroid ultrasound is recommended. Problem list- Syncope under evaluation possibly vasovagal Normocytic normochromic anemia Eosinophilia ( ragweed allergy) Monocytosis Metabolic acidosis stage 4 chronic kidney disease with a baseline creatinine ~1.7-2.2 thought to be 2/2 HTN/DM/NSAID use, Severe hypomagnesemia 2.4 cm nodule within the left thyroid lobe (Benign) DM Assessment and plan- * We will admit the patient to telemetry floor * We will do telemetry monitoring * Watch for arrhythmia * Orthostatic vitals * Echocardiogram * Follow cardiology recommendation; please place a consult * Fingerstick 3 times daily/at bedtime * NovoLog according to the sliding scale * We will supplement the magnesium by IV, target magnesium more than 2 * We will recheck the magnesium tomorrow * We will continue on home medication * We will add tablet soda bicarb 650 mg twice daily; to correct metabolic acidosis * CODE STATUS-full code * Diet-consistent carbohydrate diet * DVT prophylaxis-ALPS/heparin Alexandro Grant 12/14/17 0312: Core Measures/Misc (12/11) Sepsis (View protocol) If YES complete Sepsis Event Note If YES complete Sepsis Event Note Attending MD Review Statement Attending Statement Attending MD Statement: examined this patient, discuss w/resident/PA/SPORTS EQUIPMENT RACKER, agreed w/resident/PA/SPORTS EQUIPMENT RACKER Attending Assessment/Plan: Addendum by . Patient was seen and examined at bedside today ( 12/14/17 ) at 2:45Am. Reviewed the history physical done by the resident. Reviewed the past medical family, family, social history. ROS: 10 point system reviewed and negative except as described above. Additional details: Patient says that she went to the kitchen this afternoon she was feeling some dizziness, spinning sensation. She did not want to fall so she decided to sit on the floor. And she does not remember what happened. The daughter was in the room and she told the patient that she fell on the floor and lost consciousness for about 45 seconds. Once patient was awake she did not have any confusion. Patient did have some palpitations after that and also some headache but otherwise no other complaints. No seizure-like activity, bowel, bladder was intact. Patient did not have any syncopal episodes in the past. Patient denies having any known heart disease. She has a functional murmur. Patient had palpitations in the past, had a normal Holter monitoring 2 years ago. Patient has a CKD follows with nephrology as an outpatient. She makes sufficient urine. Exam: Obese, alert, oriented 3. No JVD, normal neck examination. Cardiac examination regular heart sounds, systolic murmur heard in the apical area only. Lungs are clear on examination. No leg edema next to Labs, EKG, telemetry, old records reviewed. Assessment and plan: #Syncopal episode-likely vasovagal, rule out cardiac etiology. Patient is QTc around 490. Magnesium is 1.0. Replace magnesium. Get an echocardiogram to rule out any valvular issues. Check orthostatic vitals. Monitor on telemetry to rule out arrhythmia. #CKD stage IV-patient is a metabolic acidosis from this. Started on bicarb 650 mg 2 times a day. Patient does not need any Lasix at this time. Patient is on vitamin D supplements. #high eosinophil count-etiology is unclear. Patient denies having any allergy or any autoimmune disease. #Hypomagnesemia-replaced aggressively. And repeat magnesium after that. #History of TIA-continue with home medications. #History of peripheral vascular disease, diabetes-continue the home medications. Reviewed with the resident. Agree with the rest of the plan as per resident's note. Dr.Ravinder Xiomara MD. Hospitalist. Pager: [phone], cell: [phone].
[2017-12-14 05:45] LABS: ABSOLUTE BASOPHIL COUNT 0.1 /CUMM (0.0-0.2); ABSOLUTE EOSINOPHIL COUNT 0.4 /CUMM (0.0-0.7); ABSOLUTE GRANULOCYTE CT 1.9 /CUMM (1.4-6.5); ABSOLUTE LYMPH COUNT 2.5 /CUMM (1.2-3.4); ABSOLUTE MONOCYTE COUNT 0.8 /CUMM (0.10-0.60); EOSINOPHIL % 7.7 % (0-5); GRANULOCYTE % 33.8 % (42.2-75.2); HEMATOCRIT 29.7 % (37-47); MEAN CORPUSCULAR HGB 28.4 PG (27.0-31.0); MEAN CORPUSCULAR HGB CONC 33.4 G/DL (33.0-37.0); MEAN CORPUSCULAR VOLUME 85.1 FL (81.0-99.0); MEAN PLATELET VOLUME 8.8 FL (7.4-10.4); PLATELET COUNT 289 /CUMM (130-400); RBC DISTRIBUTION WIDTH 14.4 % (11.5-14.5); RED BLOOD CELL CT 3.49 /CUMM (4.20-5.40); WHITE BLOOD CELL COUNT 5.8 /CUMM (4.8-10.8)
--- NOTE | 2017-12-14 08:18 | PN- Housestaff ---
See Addendum Subjective Follow-up For: Syncopal episode Tele-Events Since Last Visit: Her heart rate remained in 80s Subjective: No overnight events. Patient remained afebrile. Seen and examined this morning. Patient denied chest pain, short of breath, nausea, vomiting, chill, fever, abdominal pain dysuria. Patient denied dizziness lightheadedness. Review of Systems Constitutional: Denies: chills, fever, weakness. EENTM: Reports: no symptoms. Cardiovascular: Denies: chest pain, palpitations, syncope. Respiratory: Denies: cough, short of breath, sputum production. Gastrointestinal: Denies: abdominal pain, constipation, diarrhea, nausea, vomiting. Genitourinary: Reports: no symptoms. Musculoskeletal: Reports: no symptoms. Neurological/Psychological: Reports: no symptoms. Objective Last 24 Hrs of Vital Signs/I&O Vital Signs Date Time Temp Pulse Resp B/P B/P Pulse O2 O2 Flow FiO2 Mean Ox Delivery Rate 12/14 0953 98.6 80 20 116/58 12/14 0938 98.6 80 20 116/58 92 Room Air Room Air 12/14 0828 98.6 80 20 116/58 92 Room Air 12/14 0533 97.6 80 20 115/62 95 Room Air 12/14 0359 89 18 94 Room Air 12/14 0047 97.5 82 18 136/70 95 Room Air 12/13 2108 97.8 89 17 136/79 97 Room Air Intake & Output 12/14 1600 12/14 0800 12/14 0000 Intake Total 200 Output Total Balance 200 Intake, IV 200 Patient 202 lb 202 lb Weight Weight Reported by Patient Reported by Patient Measurement Method Physical Exam General Appearance: Alert, Oriented X3, Cooperative Skin Temp/Moisture Exam: Warm/Dry Sepsis Skin Exam (color): Normal for Ethnicity HEENT: Atraumatic, PERRLA, EOMI Neck: Supple Cardiovascular: Normal S1, Normal S2 Lungs: Clear to Auscultation Abdomen: Soft, No Tenderness Neurological: Normal Speech, Strength at 5/5 X4 Ext, Normal Tone Extremities: No Edema Assessment/Plan Assessment: 66 YO F with PMH significant for hypertension, hyperlipidemia, asthma, chronic kidney disease, diabetes mellitus, TIA, Jam's syndrome who presented to ED with chief complaint of fainting at home, shortness of breath, lightheadedness, and palpitations afterwards. Seeing the patient for following problems. Syncopal episode: -Patient reported stressful situation, had dizziness and she passed out for a couple of seconds. After that patient felt palpitations. Ruling out arrhythmias or blocks that causing her syncopal episode. -Continue following her on telemetry floor to rule out arrhythmias. -Orthostatic vitals -EKG and troponin remained negative for any ischemic cardiac injury. -Cardiology recommendations -Follow-up echocardiogram results. -Her CT had remained negative for any intracranial pathology. Patient has thyroid nodule 2.[address] scan. Hypomagnesemia: -Patient had magnesium level 1 on admission. Her magnesium was repleted -Her repeat magnesium is 2.0. History of chronic kidney disease: -Patient had NSAIDs induced nephrotoxicity -Patient has CKD stage IV, baseline GFR in 20s and and creatinine in 2's -Stable chronic kidney disease -Patient was started on bicarbonate 650 mg twice daily -Follow-up nephrology recommendations for bicarbonate. History of diabetes: -HbA1c 6.4 -Continue Accu-Cheks, fasting blood sugar level is 120 -Continue insulin NovoLog according to sliding scale. History of hypertension hyperlipidemia: -Continue amlodipine and Lipitor. History of TIA: -Continue clopidogrel DVT prophylaxis: Mechanical only CODE STATUS: Full code Problem List: 1. Syncope and collapse 2. Hypomagnesemia Pain Ratin Pain Location: none Pain Goal: Remain pain free Pain Plan: pain pathway Tomorrow's Labs & Rationales: bep/mag
[2017-12-14 09:38] VITALS: BP 116/58
--- NOTE | 2017-12-14 11:56 | Cons- Nephrology ---
General Information and HPI Consulting Request Date of Consult: 12/14/17 Requested By: Flor Verma MD Reason for Consult: Chronic Kidney disease stage IV Source of Information: patient, family Exam Limitations: no limitations History of Present Illness: This 66-year-old woman has a history of diabetes, hypertension and chronic kidney disease. She was admitted yesterday after an episode of syncope. She reports feeling lightheaded and guiding herself to the floor. Her daughter then observed an episode of unresponsiveness. The next thing the patient remembers was waking up with her daughters dog near her face. The patient just saw Dr. Cat on December 11. At that point her serum creatinine was 2.0. She is had no difficulty with voiding. She has not noted any swelling in the legs. She reports only a 5 year history of diabetes. Otherwise, on the kidney standpoint things have been stable. We did not discuss but I believe her father had a history of end-stage renal disease on dialysis. Allergies/Medications Allergies: Coded Allergies: aspirin (RASH ALL OVER, RINGING IN THE EARS 05/10/16) erythromycin base (RASH ALL OVER 05/10/16) melon (HANDS SWELL, ITCH, THROAT ITCHES 05/10/16) Home Med List: Albuterol Sulfate (Proair Hfa) 90 MCG HFA.AER.AD 2 PUF INH PRN ASTHMA ( Reported) Amlodipine Besylate 5 MG TABLET 1 TAB PO DAILY Blood pressure Atorvastatin Calcium (Lipitor) 10 MG TABLET 1 TAB PO DAILY CHOLESTEROL ( Reported) Cholecalciferol (Vitamin D3) (Vitamin D) 2,000 UNIT CAPSULE 1 CAP PO DAILY SUPPLEMENT (Reported) Citalopram Hydrobromide (Citalopram HBr) 20 MG TABLET 1 TAB PO QPM MENTAL HEALTH (Reported) Clopidogrel Bisulfate (Plavix) 75 MG TABLET 1 TAB PO DAILY TIA Cyanocobalamin (Vitamin B-12) 1,000 MCG TABLET 1 TAB PO DAILY SUPPLEMENT ( Reported) Gemfibrozil 600 MG TABLET 1 TAB PO BID high triglyceride Magnesium Oxide (Magnesium) 400 MG CAPSULE 1 CAP PO TID SUPPLEMENT (Reported) Metformin HCl 1,000 MG TABLET 1 TAB PO BID DM (Reported) Montelukast Sodium 10 MG TABLET 1 TAB PO DAILY ASTHMA/ALLERGIES (Reported) Pantoprazole Sodium 40 MG TABLET.DR 1 TAB PO DAILY AC GI (Reported) Review of Systems Review of Systems Constitutional: Denies: chills, diaphoresis, fever, malaise, weakness. EENTM: Denies: blurred vision, double vision, visual changes, throat pain. Cardiovascular: Reports: palpitations, syncope. Denies: chest pain, edema, orthopena, peripheral edema. Respiratory: Denies: cough, hemoptysis, orthopnea, short of breath. GI: Denies: bloating, constipation, diarrhea, distention, bowel incontinence, melena , nausea. Genitourinary: Denies: dysuria, frequency, hematuria, pain. Musculoskeletal: Denies: gout, joint pain, joint swelling, muscle pain. Skin: Denies: jaundice, rash. Neurological/Psychological: Denies: headache, numbness, tremors, tonic-clonic seizures. Hematologic/Endocrine: Denies: bruising, bleeding, polyuria. Past History Travel History Traveled to [place] past 21 day No Medical History Neurological: TIA, ELY'S syndrome EENT: NONE Cardiovascular: hypertension, hyperlipidemia Respiratory: asthma Gastrointestinal: NONE Hepatic: NONE Renal: chronic kidney disease Musculoskeletal: gout, CERVICAL DISEASE Psychiatric: NONE Endocrine: diabetes, thyroid nodule Blood Disorders: NONE Cancer(s): NONE DIRECTOR STRATEGY/Reproductive: NONE Surgical History Surgical History: unobtainable Family History Relations & Conditions If Any: MOTHER FH: stroke, Onset: 50-60. Psychosocial History Where Do You Live? Home Who Do You Live With? spouse Services at Home: None Primary Language: Kiswahili Smoking Status: Former Smoker Functional Ability ADLs Independent: dressing, eating, toileting, bathing. Ambulation: independent IADLs Independent: shopping, housework, finances, food prep, telephone, transportation , medication admin. Exam & Diagnostic Data Vital Signs and I&O Vital Signs Date Time Temp Pulse Resp B/P B/P Pulse O2 O2 Flow FiO2 Mean Ox Delivery Rate 12/14 0953 98.6 80 20 116/58 12/14 0938 98.6 80 20 116/58 92 Room Air Room Air 12/14 0828 98.6 80 20 11658 92 Room Air 12/14 0533 97.6 80 20 115/62 95 Room Air 12/14 0359 89 18 94 Room Air 12/14 0047 97.5 82 18 136/70 95 Room Air 12/13 2108 97.8 89 17 136/79 97 Room Air Intake & Output 09/20 1600 09/20 04012/13 04012/12 0400 Intake Total 200 Output Total Balance 200 Intake, IV 200 Patient 202 lb 202 lb Weight Weight Reported by Patient Reported by Patient Measurement Method Physical Exam General Appearance: well developed/nourished, no apparent distress, alert, awake , comfortable, obese Head: atraumatic, normal appearance Eyes: Bilateral: normal appearance, PERRL, EOMI. Ears, Nose, Throat: normal pharynx, normal ENT inspection, hearing grossly normal Neck: normal inspection, full range of motion Respiratory: normal breath sounds, chest non-tender, no respiratory distress, lungs clear Cardiovascular: regular rate/rhythm, normal peripheral pulses Peripheral Pulses: 2+ popliteal (R), 2+ popliteal (L), 2+ tibialis posterior (R) Gastrointestinal: soft, non-tender, no organomegaly Back: normal inspection, normal range of motion Extremities: normal inspection, normal capillary refill, normal range of motion, no edema Neurologic/Psych: no motor/sensory deficits, awake, alert, oriented x 3 Cranial Nerves: normal hearing, normal speech, PERRL Skin: intact, normal color, warm/dry, cyanosis, diaphoresis Lymphatic: no anterior cervical buck Results Pertinent Lab Results: Laboratory Tests 12/14 0532 Chemistry Sodium (137 - 145 mmol/L) 142 Potassium (3.5 - 5.1 mmol/L) 4.1 Chloride (98 - 107 mmol/L) 107 Carbon Dioxide (22 - 30 mmol/L) 18 L Anion Gap (5 - 16) 16 BUN (7 - 17 mg/dL) 38 H Creatinine (0.5 - 1.0 mg/dL) 2.2 H Estimated GFR (>60 ml/min) 22 L BUN/Creatinine Ratio (7 - 25 %) 17.3 Hemoglobin A1c (4.2 - 5.8 %) 6.4 H Magnesium (1.6 - 2.3 mg/dL) 2.0 Hematology CBC w Diff NO MAN DIFF REQ WBC (4.8 - 10.8 /CUMM) 5.8 RBC (4.20 - 5.40 /CUMM) 3.49 L Hgb (12.0 - 16.0 G/DL) 9.9 L Hct (37 - 47 %) 29.7 L MCV (81.0 - 99.0 FL) 85.1 MCH (27.0 - 31.0 PG) 28.4 MCHC (33.0 - 37.0 G/DL) 33.4 RDW (11.5 - 14.5 %) 14.4 Plt Count (130 - 400 /CUMM) 289 MPV (7.4 - 10.4 FL) 8.8 Gran % (42.2 - 75.2 %) 33.8 L Lymphocytes % (20.5 - 51.1 %) 43.5 Monocytes % (1.7 - 9.3 %) 14.0 H Eosinophils % (0 - 5 %) 7.7 H Basophils % (0.0 - 2.0 %) 1.0 Absolute Granulocytes (1.4 - 6.5 /CUMM) 1.9 Absolute Lymphocytes (1.2 - 3.4 /CUMM) 2.5 Absolute Monocytes (0.10 - 0.60 /CUMM) 0.8 H Absolute Eosinophils (0.0 - 0.7 /CUMM) 0.4 Absolute Basophils (0.0 - 0.2 /CUMM) 0.1 12/133 Chemistry Sodium (137 - 145 mmol/L) 140 Potassium (3.5 - 5.1 mmol/L) 4.0 Chloride (98 - 107 mmol/L) 108 H Carbon Dioxide (22 - 30 mmol/L) 16 L Anion Gap (5 - 16) 16 BUN (7 - 17 mg/dL) 37 H Creatinine (0.5 - 1.0 mg/dL) 2.4 H Estimated GFR (>60 ml/min) 20 L BUN/Creatinine Ratio (7 - 25 %) 15.4 Glucose (65 - 99 mg/dL) 155 H Calcium (8.4 - 10.2 mg/dL) 9.3 Phosphorus (2.5 - 4.5 mg/dL) 3.5 Magnesium (1.6 - 2.3 mg/dL) 1.0 L Total Bilirubin (0.2 - 1.3 mg/dL) 0.2 AST (14 - 36 U/L) 29 ALT (9 - 52 U/L) 29 Alkaline Phosphatase (<127 U/L) 93 Troponin I (< 0.11 ng/ml) < 0.01 Total Protein (6.3 - 8.2 g/dL) 7.1 Albumin (3.5 - 5.0 g/dL) 4.5 Globulin (1.9 - 4.2 gm/dL) 2.6 Albumin/Globulin Ratio (1.1 - 2.2 %) 1.7 TSH &T3 &Free T4 Intrp (0.270 - 4.20 uIU/mL) 1.620 Hematology CBC w Diff NO MAN DIFF REQ WBC (4.8 - 10.8 /CUMM) 5.4 RBC (4.20 - 5.40 /CUMM) 3.63 L Hgb (12.0 - 16.0 G/DL) 10.2 L Hct (37 - 47 %) 31.0 L MCV (81.0 - 99.0 FL) 85.4 MCH (27.0 - 31.0 PG) 28.1 MCHC (33.0 - 37.0 G/DL) 32.9 L RDW (11.5 - 14.5 %) 14.2 Plt Count (130 - 400 /CUMM) 318 MPV (7.4 - 10.4 FL) 8.8 Gran % (42.2 - 75.2 %) 38.3 L Lymphocytes % (20.5 - 51.1 %) 42.5 Monocytes % (1.7 - 9.3 %) 11.2 H Eosinophils % (0 - 5 %) 6.5 H Basophils % (0.0 - 2.0 %) 1.5 Absolute Granulocytes (1.4 - 6.5 /CUMM) 2.1 Absolute Lymphocytes (1.2 - 3.4 /CUMM) 2.3 Absolute Monocytes (0.10 - 0.60 /CUMM) 0.6 Absolute Eosinophils (0.0 - 0.7 /CUMM) 0.4 Absolute Basophils (0.0 - 0.2 /CUMM) 0.1 Assessment/Plan Assessment/Recommendations Assessment: 1. Syncope evaluation as per primary team of note the patient denies 2. Diabetes mellitus. She reports having had diabetes for only 5 years. 3. Chronic kidney disease stage IV. We'll function is roughly where she has been Her most recent outpatient serum creatinine was 2.0. Jaime Cat MD makes reference to the fact that her degree of proteinuria has not been particular significant. She also does not have diabetic retinopathy. 4. Hypertension. 5. History of gout 6. History of a thyroid nodule 7. History of TIA Recommendations: 1. Obviously would avoid nonsteroidal anti-inflammatory drugs. 2. No change in therapy from a nephrology standpoint 3. Obviously would avoid nephrotoxins
[2017-12-14 12:22] VITALS: BP 126/82
[2017-12-14 15:05] VITALS: BP 132/80
[2017-12-14 22:10] VITALS: BP 144/74
[2017-12-15 06:55] VITALS: BP 124/80
--- NOTE | 2017-12-15 08:08 | PN- Housestaff ---
[place] 12/15/17 0801: Subjective Follow-up For: Syncopal episode Tele-Events Since Last Visit: Patient remained in sinus rhythm with heart rate between 7384 Subjective: No overnight events. Patient remained afebrile. Seen and examined this morning. She denied chest pain, palpitation, lightheadedness, nausea, vomiting, abdominal pain and dysuria. She is on room air maintaining saturation 92%. Her orthostatic vitals are within normal limits and cardiology cleared her to be discharged home today. Review of Systems Constitutional: Denies: chills, fever. EENTM: Reports: no symptoms. Cardiovascular: Denies: chest pain, palpitations, syncope. Respiratory: Denies: cough, short of breath, sputum production. Gastrointestinal: Denies: abdominal pain, bloating, constipation, diarrhea, vomiting. Genitourinary: Reports: no symptoms. Neurological/Psychological: Denies: anxiety, headache, numbness. Objective Last 24 Hrs of Vital Signs/I&O Vital Signs Date Time Temp Pulse Resp B/P B/P Pulse O2 O2 Flow FiO2 Mean Ox Delivery Rate 12/15 0655 97.9 84 18 124/80 92 Room Air 12/14 2210 97.7 83 24 144/74 94 12/14 1505 97.5 94 18 132/80 95 Room Air 12/14 1222 77 18 126/82 95 Room Air 12/14 0953 98.6 80 20 116/58 12/14 0938 98.6 80 20 116/58 92 Room Air Room Air 12/14 0828 98.6 80 20 116/58 92 Room Air Intake & Output 12/15 1600 12/15 0800 12/15 0000 Intake Total 100 100 Output Total Balance 100 100 Intake, Oral 100 100 Patient 216 lb Weight Physical Exam General Appearance: Alert, Oriented X3, Cooperative Skin: No Rashes Skin Temp/Moisture Exam: Warm/Dry Sepsis Skin Exam (color): Normal for Ethnicity HEENT: Atraumatic, PERRLA, EOMI Neck: Supple Cardiovascular: Normal S1, Normal S2 Lungs: Clear to Auscultation Abdomen: Soft, No Tenderness Neurological: Normal Speech, Strength at 5/5 X4 Ext, Normal Tone Extremities: No Edema Assessment/Plan Assessment: 66 YO F with PMH significant for hypertension, hyperlipidemia, asthma, chronic kidney disease, diabetes mellitus, TIA, Jam's syndrome who presented to ED with chief complaint of fainting at home, shortness of breath, lightheadedness, and palpitations afterwards. Seeing the patient for following problems. Syncopal episode: -Patient reported stressful situation, had dizziness and she passed out for a couple of seconds. After that patient felt palpitations. Ruling out arrhythmias or blocks that causing her syncopal episode. -Her orthostatic vitals remain negative. -EKG and troponin remained negative for any ischemic cardiac injury. -Follow-up echocardiogram results. -Her CT had remained negative for any intracranial pathology. Patient has thyroid nodule 2.[address] scan. -Orthostatics are within normal limits and cardiology cleared to be discharged today. Hypomagnesemia:(resolved) -Patient had magnesium level 1 on admission. Her magnesium was repleted -Her repeat magnesium is 2.0. History of chronic kidney disease:(stable) -Patient had NSAIDs induced nephrotoxicity -Patient has CKD stage IV, baseline GFR in 20s and and creatinine in 2's -Stable chronic kidney disease -Patient was started on bicarbonate 650 mg twice daily -Follow-up nephrology recommendations for bicarbonate. History of diabetes: -HbA1c 6.4 -Continue Accu-Cheks, fasting blood sugar level is 141 -Continue insulin NovoLog according to sliding scale. History of hypertension hyperlipidemia: -Continue amlodipine and Lipitor. History of TIA: -Continue clopidogrel DVT prophylaxis: Mechanical only CODE STATUS: Full code Problem List: 1. Syncope and collapse 2. Hypomagnesemia Pain Ratin Pain Location: none Pain Goal: Remain pain free Pain Plan: pain pathway Tomorrow's Labs & Rationales: none Flor Verma MD 12/15/17 1033: Attending MD Review Statement Attending Statement Attending MD Statement: examined this patient, discuss w/resident/PA/CAR PARKER, agreed w/resident/PA/CAR PARKER, discussed with family, reviewed EMR data (avail), discussed with nursing, discussed with case mgmt, reviewed images Attending Assessment/Plan: 66-year-old female past medical history of diabetes, CKD who is here with syncope. Patient felt like the room was spinning around and then passed out. She has been without any arrhythmia, echo is pending and she is not orthostatic. Renal saw her and her kidney function is at baseline we have added sodium bicarb. Given her creatinine cutoff and a hemoglobin A1c of 6.4, we are going to stop the metformin. I clearly told her that she may be able to be controlled with diet alone. She is going to talk to the procedures tech and closely follow-up with Dr. lynne. If cleared by cardiology she can leave with outpatient follow-up.
--- NOTE | 2017-12-15 08:13 | Patient Discharge Instructions ---
Discharge Instructions General Discharge Information You were seen/treated for: Syncopal episode Watch for these problems: Chest pain, palpitation, nausea, vomiting, dizziness, unconsciousness and dysuria. If you experience any of these symptoms come to ED or call to your primary care physician. Special Instructions: Follow-up with your primary care physician in 1 week. Follow-up with your merchandise stocker in 1 week. Follow-up with your editor index in 1 week. Follow-up with endocrinology in 1 week and talk about thyroid nodule and further workup for thyroid nodule. Diet Recommended Diet: Diabetic Activity Activity Self Limited: Yes Acute Coronary Syndrome Inclusion Criteria At DC or during hospital stay patient has or had the following: ACS DIAGNOSIS No Discharge Core Measures Meds if any: Prescribed or Continued at Discharge Meds if any: NOT Prescribed or Continued at Discharge Congestive Heart Failure Inclusion Criteria At DC or during hospital stay patient has or had the following: CHF DIAGNOSIS No Discharge Core Measures Meds if any: Prescribed or Continued at Discharge Meds if any: NOT Prescribed or Continued at Discharge Cerebrovascular accident Inclusion Criteria At DC or during hospital stay patient has or had the following: CVA/TIA Diagnosis No Discharge Core Measures Meds if any: Prescribed or Continued at Discharge Meds if any: NOT Prescribed or Continued at Discharge Venous thromboembolism Inclusion Criteria VTE Diagnosis No VTE Type NONE VTE Confirmed by (Test) NONE Discharge Core Measures - Per Current guidelines, there needs to be overlap - treatment for the first 5 days of Warfarin therapy. - If discharged on Warfarin prior to 5 days of - overlap therapy, the patient will need to be - assessed for post discharge needs including - *Post discharge parental anticoagulation - *Warfarin and/or parental anticoagulation education - *Follow up date to check INR post discharge At least 5 days overlap therapy as Inpatient No Meds if any: Prescribed or Continued at Discharge Note: Overlap Therapy is Warfarin and Anticoagulant Meds if any: NOT Prescribed or Continued at Discharge
--- NOTE | 2017-12-15 08:15 | Discharge Summary ---
Visit Information Visit Dates Admission Date: 12/14/17 Discharge Date: 12/15/17 Hospital Course Course Attending Physician: Bayron MESA,Flor Barnes Primary Care Physician: Marquita MESA,[facility] Hospital Course: 66 YO F with PMH significant for hypertension, hyperlipidemia, asthma, chronic kidney disease, diabetes mellitus, TIA, Jam's syndrome who presented to ED with chief complaint of fainting at home, shortness of breath, lightheadedness, and palpitations afterwards. ED course: Vital: Temperature 97.6, pulse 89, respiratory rate 17, blood pressure 136/79, oxygen saturation 97% on room air. Labs: WBC count 5.4, hemoglobin 10.2, hematocrit 31.0, platelet count 310, sodium 140, potassium 4.0, BUN 37, creatinine 2.4, glucose 155, BUN/creatinine ratio 15.4, anion gap 16, magnesium 1.0, AST 29, ALT 29, troponin less than 0.01 Syncopal episode: Patient was admitted with 1 syncopal episode and she mentioned that she was in stressful condition and she had dizziness. She passed out for a couple of seconds. Later on she mentioned having palpitations. Patient was admitted on telemetry floor to rule out any arrhythmias or blocks that is causing her syncopal episode. Her troponin EKG remained negative for any ischemic cardiac injury. Her orthostatics remain negative. Cardiology consult was obtained and recommendations are followed. Her CT scan had remained negative for any intracranial pathology. Echocardiogram was done that showed ejection fraction 65-70%. Patient remained asymptomatic without any complaint of dizziness. Patient was instructed to follow her packerhead machine operator in 1 week and her primary care physician within 1 week. Hypomagnesemia: Patient had hypomagnesemia on admission. Her magnesium was repleted and kept it up to 2 during hospital stay. On monitoring and evaluation advisor patient did not have any arrhythmias or blocks. History of chronic kidney disease: Patient had NSAIDs induced nephrotoxicity. Patient has CKD stage IV, baseline GFR in 20s and and creatinine in 2's. Nephrology consult was obtained and recommendations are followed. Patient was started on bicarbonate 650 mg twice daily considering her chronic kidney disease. Patient was instructed to follow nephrology as outpatient. History of diabetes: Her HbA1c 6.4. Her blood sugar levels remained within under control while in the hospital. Patient was placed on NovoLog according to sliding scale. Metformin was discontinued considering patient's chronic kidney disease with elevated creatinine above 2. Nutrition consult was placed and recommendations are followed. Patient will be taught about diabetic diet and how to control blood sugar level with diet. Patient was instructed to follow endocrinology as outpatient for her diabetes although her blood sugar level remained within acceptable limits with diet. Patient was also instructed to follow endocrinology for her thyroid nodule. History of hypertension hyperlipidemia: Her amlodipine and Lipitor were continued. History of TIA: Her clopidogrel was continued. DVT prophylaxis: Mechanical only CODE STATUS: Full code Allergies: Coded Allergies: aspirin (RASH ALL OVER, RINGING IN THE EARS 05/10/16) erythromycin base (RASH ALL OVER 05/10/16) melon (HANDS SWELL, ITCH, THROAT ITCHES 05/10/16) Pertinent Lab Results: Cervical spine CT scan 12/13/2017: IMPRESSION: 1. No acute intracranial abnormality. 2. No acute osseous abnormality within the cervical spine. Postoperative changes following C4-C7 ACDF. Surgical hardware is intact. 3. There is a large approximately 2.4 cm nodule within the left thyroid lobe for which thyroid ultrasound is recommended. Chest x-ray on 12/13/2017: IMPRESSION: The heart size is normal. There is no acute abnormality of the chest. 12/13/2017 CT scan head: IMPRESSION: 1. No acute intracranial abnormality. 2. No acute osseous abnormality within the cervical spine. Postoperative changes following C4-C7 ACDF. Surgical hardware is intact. 3. There is a large approximately 2.4 cm nodule within the left thyroid lobe for which thyroid ultrasound is recommended. Echocardiogram on 12/15/17: CONCLUSIONS 1. This was a technically difficult examination. 2. Mild aortic sclerosis is present with no valvular stenosis or insufficiency. 3. Mitral leaflet thickening is present with no valvular prolapse. Mild to moderate left atrial enlargement is present 4. There is no pericardial fluid detected. 5. The left ventricular chamber size and systolic function appear normal. 6. Minimal tricuspid and pulmonic insufficiency are present with no evidence of pulmonary hypertension. Disposition Summary Disposition Principal Diagnosis: Syncopal episode unknown etiology Hypomagnesemia Additional Diagnosis: History of chronic kidney disease History of diabetes History of hypertension hyperlipidemia History of TIA Discharge Disposition: home or self care Discharge Instructions General Discharge Information Code Status: Full Code Patient's Diet: Diabetic diet Patient's Activity: Self-limited Follow-Up Instructions/Appts: Follow-up with your primary care physician in 1 week. Follow-up with your packerhead machine operator in 1 week Follow-up with nephrology in 1 week Follow-up with your slab installer in 1 week and talk about thyroid nodule workup. Medications at Discharge Discharge Medications: Stop taking the following medications: Metformin HCl (Metformin HCl) 1,000 MG TABLET ORAL TWICE DAILY Qty = 60 Magnesium Oxide (Magnesium) 400 MG CAPSULE ORAL THREE TIMES DAILY Continue taking these medications: Albuterol Sulfate (Proair Hfa) 90 MCG HFA.AER.AD 2 Puff Inhale through mouth as needed for ASTHMA Comments: NOT GIVEN IN HOSPITAL Citalopram Hydrobromide (Citalopram HBr) 20 MG TABLET 1 Tablet ORAL Every night Qty = 90 Comments: Last Taken: 12/15/17 Time: 9:30pm Montelukast Sodium (Montelukast Sodium) 10 MG TABLET 1 Tablet ORAL DAILY Qty = 30 Comments: NO GIVEN IN HOSPITAL Pantoprazole Sodium (Pantoprazole Sodium) 40 MG TABLET.DR 1 Tablet ORAL DAILY BEFORE BREAKFAST Qty = 90 Comments: Last Taken: 12/15/17 Time: 7am Cholecalciferol (Vitamin D3) (Vitamin D) 2,000 UNIT CAPSULE 1 Capsule ORAL DAILY Comments: Last Taken: 12/15/17 Time: 9 AM Cyanocobalamin (Vitamin B-12) 1,000 MCG TABLET 1 Tablet ORAL DAILY Comments: Last Taken: 12/15/17 Time: 9 AM Clopidogrel Bisulfate (Plavix) 75 MG TABLET 1 Tablet ORAL DAILY Qty = 60 Comments: Last Taken: 12/15/17 Time: 9am Gemfibrozil (Gemfibrozil) 600 MG TABLET 1 Tablet ORAL TWICE DAILY Qty = 60 Comments: NOT TAKEN IN HOSPITAL Atorvastatin Calcium (Lipitor) 10 MG TABLET 1 Tablet ORAL DAILY Comments: Last Taken: 12/15/17 Time: 8 PM Amlodipine Besylate (Amlodipine Besylate) 5 MG TABLET 1 Tablet ORAL DAILY Qty = 30 Comments: Last Taken: 12/15/17 Time: 9am Start taking the following new medications: Sodium Bicarbonate (Sodium Bicarbonate) 325 MG TABLET 650 Milligram ORAL TWICE DAILY Qty = 30 No Refills Comments: Last Taken: 12/15/17 Time: 9 AM Magnesium Chloride (Slow-Mag) 71.5 MG TABLET.DR 3 Tablet ORAL DAILY Qty = 12 No Refills Comments: NOT GIVEN IN HOSPITAL Copies To: Marquita MESA,Praveena; Stephania MESA,Jaime Ortiz; Concetta MESA,Saad Renteria
[2017-12-15] MEDS ORDERED: SODIUM BICARBO325 M1 PO (09:38)
--- NOTE | 2017-12-15 10:58 | Cons- Cardiology ---
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 The patient was working to her kitchen when she felt dizzy, the room started to spin around, and everything was fuzzy and got dark, she sat on the floor. Her daughter was observing her during this episode. And she has told her that she was on the floor for 45 seconds. After this episode she had palpitations for 5- 10 minutes, but no sweating. This episode happened around 7:30 PM. This morning she felt normal, went to work and did not have any symptoms of lightheadedness, chest pain, chest pressure, dizziness, nausea, vomiting, abdominal pain, feeling any numbness or weakness in her face or extremities, sweating, palpitation, diarrhea, dysuria, frequency, fever, chills, or sweating, or losing bowel or urine control, or abnormal movements. She had one episode of TIA previously, this time she did not experience any symptoms of TIA, or seizure, this event was witnessed by her daughter and no abnormal movement was reported. She reports that her food and fluid intake is normal and she has been drinking more fluid in order to improve her kidney function recommended by her borough coordinator, Dr. Cat. Since she had a TIA, magnesium was found to be low, last time it was 1.5. After the TIA, Dr. Huynh has done an MRI and carotid Doppler ultrasound which has revealed normal results. She denies any current or recent fever, sinus infection, chills, or sweating. She reports that she had some episodes of palpitation previously you to anxiety induced by some issues that her household-her mother who is 93 years old had a fall recently and was admitted at [facility], now she is discharged to home, her son had an alcoholic rehab and has been home from this Monday. These ongoing issues has caused her palpitation occasionally. Previously she had Holter monitoring due to palpitations which did not find any abnormalities. She does not report any palpitation, lightheadedness, dizziness upon changing position, getting come from laying down or sitting position. Allergies/Medications Allergies: Coded Allergies: aspirin (RASH ALL OVER, RINGING IN THE EARS 05/10/16) erythromycin base (RASH ALL OVER 05/10/16) melon (HANDS SWELL, ITCH, THROAT ITCHES 05/10/16) Home Med List: Albuterol Sulfate (Proair Hfa) 90 MCG HFA.AER.AD 2 PUF INH PRN ASTHMA ( Reported) Amlodipine Besylate 5 MG TABLET 1 TAB PO DAILY Blood pressure Atorvastatin Calcium (Lipitor) 10 MG TABLET 1 TAB PO DAILY CHOLESTEROL ( Reported) Cholecalciferol (Vitamin D3) (Vitamin D) 2,000 UNIT CAPSULE 1 CAP PO DAILY SUPPLEMENT (Reported) Citalopram Hydrobromide (Citalopram HBr) 20 MG TABLET 1 TAB PO QPM MENTAL HEALTH (Reported) Clopidogrel Bisulfate (Plavix) 75 MG TABLET 1 TAB PO DAILY TIA Cyanocobalamin (Vitamin B-12) 1,000 MCG TABLET 1 TAB PO DAILY SUPPLEMENT ( Reported) Gemfibrozil 600 MG TABLET 1 TAB PO BID high triglyceride Magnesium Chloride (Slow-Mag) 71.5 MG TABLET. 3 TAB PO DAILY Magnesium supplement Montelukast Sodium 10 MG TABLET 1 TAB PO DAILY ASTHMA/ALLERGIES (Reported) Pantoprazole Sodium 40 MG TABLET.DR 1 TAB PO DAILY AC GI (Reported) Sodium Bicarbonate 325 MG TABLET 650 MG PO BID CKD Current Medications: Current Medications Sig/Allan Start time Last Medication Dose Route Stop Time Status Admin Albuterol Sulfate 2 PUF Q4P PRN 12/14 0315 AC INH Amlodipine Besylate 5 MG DAILY 12/14 899 AC 12/15 PO 0934 Atorvastatin Calcium 20 MG AT BEDTIME 12/15 2099 DC PO Atorvastatin Calcium 40 MG AT BEDTIME 12/14 2129 DC PO Atorvastatin Calcium 20 MG AT BEDTIME 12/14 2099 AC 12/15 PO 0031 Atorvastatin Calcium 10 MG DAILY 12/14 09 DC PO Cholecalciferol 2,000 IU DAILY 12/14 899 AC 12/15 PO 33 Citalopram 20 MG QPM 12/14 2099 AC 12/14 Hydrobromide PO 2127 Clopidogrel Bisulfate 75 MG DAILY 12/14 899 AC 12/15 PO 0933 Cyanocobalamin 1,000 MCG DAILY 12/14 09 AC 12/15 PO 0933 Influenza Virus 0 .STK-MED ONE 12/15 1915 DC Vaccine IM Influenza Virus 0.5 ML ONCE ONE 12/14 1214 DC 12/14 Vaccine IM 12/14 Insulin Aspart 0 TIDAC 12/14 08 AC SC Magnesium Oxide 400 MG ONE ONE 12/15 0830 DC 12/15 PO 12/16 0731 33 Omeprazole 40 MG DAILY AC 12/14 07 AC 12/15 PO 0548 Sodium Bicarbonate 650 MG BID 12/14 899 AC 12/15 PO 0933 Past History Travel History Traveled to [place] past 21 day No Medical History Neurological: TIA, ELY'S syndrome EENT: NONE Cardiovascular: hypertension, hyperlipidemia Respiratory: asthma Gastrointestinal: NONE Hepatic: NONE Renal: chronic kidney disease Musculoskeletal: gout, CERVICAL DISEASE Psychiatric: NONE Endocrine: diabetes, thyroid nodule Blood Disorders: NONE Cancer(s): NONE 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 Psychosocial History Where Do You Live? Home Who Do You Live With? spouse Services at Home: None Primary Language: Burmese Smoking Status: Former Smoker Functional Ability ADLs Independent: dressing, eating, toileting, bathing. Ambulation: independent IADLs Independent: shopping, housework, finances, food prep, telephone, transportation , medication admin. Exam & Diagnostic Data Vital Signs and I&O Vital Signs Date Time Temp Pulse Resp B/P B/P Pulse O2 O2 Flow FiO2 Mean Ox Delivery Rate 12/15 0934 78 130/78 12/15 0655 97.9 84 18 124/80 92 Room Air 12/14 2210 97.7 83 24 144/74 94 12/14 1505 97.5 94 18 132/80 95 Room Air 12/14 1222 77 18 126/82 95 Room Air Intake & Output 12/15 1600 12/15 0812/15 0000 12/14 1600 12/14 0812/14 0000 Intake Total 100 100 400 200 Output Total Balance 100 100 400 200 Intake, IV 200 Intake, Oral 100 100 400 Patient 202 lb 216 lb 202 lb 202 lb Weight Weight Reported by Patient Reported by Patient Reported by Patient Measurement Method Physical Exam: General Appearance Alert, Oriented X3, Cooperative, No Acute Distress Skin Normal HEENT Atraumatic, PERRLA Neck Supple, No JVD, left sided thyroid mass 2.5 x 2.5 cm, carotids normal Cardiovascular Regular Rate, Normal S1, Normal S2, Systolic murmur 2/6 in apical area Lungs Clear to Auscultation, Normal Air Movement Abdomen Normal Bowel Sounds, Soft, No Tenderness, No Hepatospenomegaly Neurological Normal Extremities No Clubbing, No Cyanosis, No Edema, Normal Pulses, No Tenderness/ Swelling Vascular Normal Pulses, Pulses Symmetrical Labs/Mik Results: Laboratory Tests 12/15 12/14 0654 0532 Chemistry Sodium (137 - 145 mmol/L) 139 142 Potassium (3.5 - 5.1 mmol/L) 4.7 4.1 Chloride (98 - 107 mmol/L) 105 107 Carbon Dioxide (22 - 30 mmol/L) 19 L 18 L Anion Gap (5 - 16) 16 16 BUN (7 - 17 mg/dL) 35 H 38 H Creatinine (0.5 - 1.0 mg/dL) 2.1 H 2.2 H Estimated GFR (>60 ml/min) 23 L 22 L BUN/Creatinine Ratio (7 - 25 %) 16.7 17.3 Hemoglobin A1c (4.2 - 5.8 %) 6.4 H Magnesium (1.6 - 2.3 mg/dL) 1.7 2.0 Hematology CBC w Diff NO MAN DIFF REQ WBC (4.8 - 10.8 /CUMM) 5.8 RBC (4.20 - 5.40 /CUMM) 3.49 L Hgb (12.0 - 16.0 G/DL) 9.9 L Hct (37 - 47 %) 29.7 L MCV (81.0 - 99.0 FL) 85.1 MCH (27.0 - 31.0 PG) 28.4 MCHC (33.0 - 37.0 G/DL) 33.4 RDW (11.5 - 14.5 %) 14.4 Plt Count (130 - 400 /CUMM) 289 MPV (7.4 - 10.4 FL) 8.8 Gran % (42.2 - 75.2 %) 33.8 L Lymphocytes % (20.5 - 51.1 %) 43.5 Monocytes % (1.7 - 9.3 %) 14.0 H Eosinophils % (0 - 5 %) 7.7 H Basophils % (0.0 - 2.0 %) 1.0 Absolute Granulocytes (1.4 - 6.5 /CUMM) 1.9 Absolute Lymphocytes (1.2 - 3.4 /CUMM) 2.5 Absolute Monocytes (0.10 - 0.60 /CUMM) 0.8 H Absolute Eosinophils (0.0 - 0.7 /CUMM) 0.4 Absolute Basophils (0.0 - 0.2 /CUMM) 0.1 12/13 2122 Chemistry Sodium (137 - 145 mmol/L) 140 Potassium (3.5 - 5.1 mmol/L) 4.0 Chloride (98 - 107 mmol/L) 108 H Carbon Dioxide (22 - 30 mmol/L) 16 L Anion Gap (5 - 16) 16 BUN (7 - 17 mg/dL) 37 H Creatinine (0.5 - 1.0 mg/dL) 2.4 H Estimated GFR (>60 ml/min) 20 L BUN/Creatinine Ratio (7 - 25 %) 15.4 Glucose (65 - 99 mg/dL) 155 H Calcium (8.4 - 10.2 mg/dL) 9.3 Phosphorus (2.5 - 4.5 mg/dL) 3.5 Magnesium (1.6 - 2.3 mg/dL) 1.0 L Total Bilirubin (0.2 - 1.3 mg/dL) 0.2 AST (14 - 36 U/L) 29 ALT (9 - 52 U/L) 29 Alkaline Phosphatase (<127 U/L) 93 Troponin I (< 0.11 ng/ml) < 0.01 Total Protein (6.3 - 8.2 g/dL) 7.1 Albumin (3.5 - 5.0 g/dL) 4.5 Globulin (1.9 - 4.2 gm/dL) 2.6 Albumin/Globulin Ratio (1.1 - 2.2 %) 1.7 TSH &T3 &Free T4 Intrp (0.270 - 4.20 uIU/mL) 1.620 Hematology CBC w Diff NO MAN DIFF REQ WBC (4.8 - 10.8 /CUMM) 5.4 RBC (4.20 - 5.40 /CUMM) 3.63 L Hgb (12.0 - 16.0 G/DL) 10.2 L Hct (37 - 47 %) 31.0 L MCV (81.0 - 99.0 FL) 85.4 MCH (27.0 - 31.0 PG) 28.1 MCHC (33.0 - 37.0 G/DL) 32.9 L RDW (11.5 - 14.5 %) 14.2 Plt Count (130 - 400 /CUMM) 318 MPV (7.4 - 10.4 FL) 8.8 Gran % (42.2 - 75.2 %) 38.3 L Lymphocytes % (20.5 - 51.1 %) 42.5 Monocytes % (1.7 - 9.3 %) 11.2 H Eosinophils % (0 - 5 %) 6.5 H Basophils % (0.0 - 2.0 %) 1.5 Absolute Granulocytes (1.4 - 6.5 /CUMM) 2.1 Absolute Lymphocytes (1.2 - 3.4 /CUMM) 2.3 Absolute Monocytes (0.10 - 0.60 /CUMM) 0.6 Absolute Eosinophils (0.0 - 0.7 /CUMM) 0.4 Absolute Basophils (0.0 - 0.2 /CUMM) 0.1 Assessment/Plan Assessment/Plan Assessment: 1. Syncope - by history the patient's event is suggestive of a vasovagal or hypotension related event. She does however note palpltations after the event. Stable at present with no arrhythmias or orthostatic changes noted. 2. Anemia 3. CKD IV 4. DM 5. Thyroid nodule Recommendations: - Stable for discharge. - Outpatient followup with me ; HOlter at that time. - Thyroid work up pending Consult Acknowledgment - Thank you for your consult request.
--- NOTE | 2017-12-15 11:59 | PN- Nephrology ---
Assessment/Plan Nephrology Assessment: Stage IV CKD - minimally proteinuric - thought to be 2/2 DM and HTN. Syncope - TTE pending - Cards following. Hypomagnesemia - On supplementation as an outpatient - level had been running around 1.5. No clear whether this was a precipitant of an arrythmia. Is on mag oxide 400mg BID as an outpatient. Often times, Slow-Mg is better tolerated and works better as it is slowly absorbed - I would recommend switching to Slow-Mg 3 tabs daily. Met acidosis - presumed - bicarb level was 20 as an outpatient - agree with supplementation. Suggestion: -Switch to Slow Mg 3 tabs daily -Cont sodium bicarb - OK to give current dose of 650mg BID -Agree with switching off metformin given current renal function Should have Mg checked within 2-4 weeks. OK to keep appt with Dr. Cat. Will see PRN if remains in-house. Please call [phone] with ?'s Subjective Subjective: SCr 2.1 Syncope workup including telemetry, trop, orthostatics, CT imaging negative TTE pending Otherwise feeling well Objective Vital Signs and I&Os Vital Signs Date Time Temp Pulse Resp B/P B/P Pulse O2 O2 Flow FiO2 Mean Ox Delivery Rate 12/15 0934 78 130/78 12/15 0800 93 12/15 0655 97.9 84 18 124/80 92 Room Air 12/14 2210 97.7 83 24 144/74 94 12/14 1505 97.5 94 18 132/80 95 Room Air 12/14 1222 77 18 126/82 95 Room Air Intake & Output 12/15 1600 12/15 0400 12/14 1600 12/14 0400 12/13 1600 12/13 0400 Intake Total 100 100 600 Output Total Balance 100 100 600 Intake, IV 200 Intake, Oral 100 100 400 Patient 202 lb 216 lb 202 lb 202 lb Weight Weight Reported by Patient Reported by Patient Reported by Patient Measurement Method Physical Exam: Gen - NAD HEENT - supple CV - RRR, no m/r/g Chest - clear, no w/r/r Abd - soft, NTND Ext - no edema Neuro - AOX3, grossly nonfocal Current Medications: Current Medications Sig/Allan Start time Last Medication Dose Route Stop Time Status Admin Albuterol Sulfate 2 PUF Q4P PRN 12/14 0315 AC INH Amlodipine Besylate 5 MG DAILY 12/14 899 AC 12/15 PO 0934 Atorvastatin Calcium 20 MG AT BEDTIME 12/15 2099 DC PO Atorvastatin Calcium 40 MG AT BEDTIME 12/14 2129 DC PO Atorvastatin Calcium 20 MG AT BEDTIME 12/14 2099 AC 12/15 PO 0031 Atorvastatin Calcium 10 MG DAILY 12/14 09 DC PO Cholecalciferol 2,000 IU DAILY 12/14 899 AC 12/15 PO 0933 Citalopram 20 MG QPM 12/14 2099 AC 12/14 Hydrobromide PO 2127 Clopidogrel Bisulfate 75 MG DAILY 12/14 899 AC 12/15 PO 33 Cyanocobalamin 1,000 MCG DAILY 12/14 899 AC 12/15 PO 0933 Influenza Virus 0 .STK-MED ONE 12/15 1915 DC Vaccine IM Influenza Virus 0.5 ML ONCE ONE 12/14 1214 DC 12/14 Vaccine IM 12/14 Insulin Aspart 0 TIDAC 12/14 08 AC SC Magnesium Oxide 400 MG ONE ONE 12/15 829 DC 12/15 PO 12/15 0831 0933 Omeprazole 40 MG DAILY AC 12/14 07 AC 12/15 PO 0548 Sodium Bicarbonate 650 MG BID 12/14 899 AC 12/15 PO 0933 Results Pertinent Lab Results: Laboratory Tests 12/15 12/14 0654 0532 Chemistry Sodium (137 - 145 mmol/L) 139 142 Potassium (3.5 - 5.1 mmol/L) 4.7 4.1 Chloride (98 - 107 mmol/L) 105 107 Carbon Dioxide (22 - 30 mmol/L) 19 L 18 L Anion Gap (5 - 16) 16 16 BUN (7 - 17 mg/dL) 35 H 38 H Creatinine (0.5 - 1.0 mg/dL) 2.1 H 2.2 H Estimated GFR (>60 ml/min) 23 L 22 L BUN/Creatinine Ratio (7 - 25 %) 16.7 17.3 Hemoglobin A1c (4.2 - 5.8 %) 6.4 H Magnesium (1.6 - 2.3 mg/dL) 1.7 2.0 Hematology CBC w Diff NO MAN DIFF REQ WBC (4.8 - 10.8 /CUMM) 5.8 RBC (4.20 - 5.40 /CUMM) 3.49 L Hgb (12.0 - 16.0 G/DL) 9.9 L Hct (37 - 47 %) 29.7 L MCV (81.0 - 99.0 FL) 85.1 MCH (27.0 - 31.0 PG) 28.4 MCHC (33.0 - 37.0 G/DL) 33.4 RDW (11.5 - 14.5 %) 14.4 Plt Count (130 - 400 /CUMM) 289 MPV (7.4 - 10.4 FL) 8.8 Gran % (42.2 - 75.2 %) 33.8 L Lymphocytes % (20.5 - 51.1 %) 43.5 Monocytes % (1.7 - 9.3 %) 14.0 H Eosinophils % (0 - 5 %) 7.7 H Basophils % (0.0 - 2.0 %) 1.0 Absolute Granulocytes (1.4 - 6.5 /CUMM) 1.9 Absolute Lymphocytes (1.2 - 3.4 /CUMM) 2.5 Absolute Monocytes (0.10 - 0.60 /CUMM) 0.8 H Absolute Eosinophils (0.0 - 0.7 /CUMM) 0.4 Absolute Basophils (0.0 - 0.2 /CUMM) 0.1 12/13 2123 Chemistry Sodium (137 - 145 mmol/L) 140 Potassium (3.5 - 5.1 mmol/L) 4.0 Chloride (98 - 107 mmol/L) 108 H Carbon Dioxide (22 - 30 mmol/L) 16 L Anion Gap (5 - 16) 16 BUN (7 - 17 mg/dL) 37 H Creatinine (0.5 - 1.0 mg/dL) 2.4 H Estimated GFR (>60 ml/min) 20 L BUN/Creatinine Ratio (7 - 25 %) 15.4 Glucose (65 - 99 mg/dL) 155 H Calcium (8.4 - 10.2 mg/dL) 9.3 Phosphorus (2.5 - 4.5 mg/dL) 3.5 Magnesium (1.6 - 2.3 mg/dL) 1.0 L Total Bilirubin (0.2 - 1.3 mg/dL) 0.2 AST (14 - 36 U/L) 29 ALT (9 - 52 U/L) 29 Alkaline Phosphatase (<127 U/L) 93 Troponin I (< 0.11 ng/ml) < 0.01 Total Protein (6.3 - 8.2 g/dL) 7.1 Albumin (3.5 - 5.0 g/dL) 4.5 Globulin (1.9 - 4.2 gm/dL) 2.6 Albumin/Globulin Ratio (1.1 - 2.2 %) 1.7 TSH &T3 &Free T4 Intrp (0.270 - 4.20 uIU/mL) 1.620 Hematology CBC w Diff NO MAN DIFF REQ WBC (4.8 - 10.8 /CUMM) 5.4 RBC (4.20 - 5.40 /CUMM) 3.63 L Hgb (12.0 - 16.0 G/DL) 10.2 L Hct (37 - 47 %) 31.0 L MCV (81.0 - 99.0 FL) 85.4 MCH (27.0 - 31.0 PG) 28.1 MCHC (33.0 - 37.0 G/DL) 32.9 L RDW (11.5 - 14.5 %) 14.2 Plt Count (130 - 400 /CUMM) 318 MPV (7.4 - 10.4 FL) 8.8 Gran % (42.2 - 75.2 %) 38.3 L Lymphocytes % (20.5 - 51.1 %) 42.5 Monocytes % (1.7 - 9.3 %) 11.2 H Eosinophils % (0 - 5 %) 6.5 H Basophils % (0.0 - 2.0 %) 1.5 Absolute Granulocytes (1.4 - 6.5 /CUMM) 2.1 Absolute Lymphocytes (1.2 - 3.4 /CUMM) 2.3 Absolute Monocytes (0.10 - 0.60 /CUMM) 0.6 Absolute Eosinophils (0.0 - 0.7 /CUMM) 0.4 Absolute Basophils (0.0 - 0.2 /CUMM) 0.1 Imaging/Other Studies: CT Head reviewed Chest X-ray reviewed
[2017-12-15] MEDS ORDERED: SLOW-MAG71.5 MG PO (13:07)
[2017-12-15 15:03] VITALS: BP 130/64
--- NOTE | 2017-12-15 16:34 | ECHOCARDIOGRAM REPORT ---
SALAS CHEN Age: 66 : 1950 Gender: F Exam Date: 12/14/2017 19:29 Exam Location: 1 [address] Ht (in): 64 Wt (lb): 202 BSA: 2.07 BP: 116 / 58 Ordering Physician: Jyothi Copeland MD Referring Physician: Minal Hylton MD Technologist: Brendon Roland [facility] Room Number: [id number] Indications: Other malaise Rhythm: Sinus Technical Quality: Fair FINDINGS Left Ventricle Normal size left ventricle. No obvious regional wall motion abnormalities. Normal left ventricular ejection fraction estimated at 65-70%. Right Ventricle Normal right ventricular size and function. Right Atrium Normal right atrial size. Left Atrium Mild to moderate left atrial dilatation. Mitral Valve Mitral valve thickened. Aortic Valve Trileaflet aortic valve. Diffuse thickening (sclerosis) of the aortic valve cusps without reduced excursion. No aortic stenosis. No aortic regurgitation. Tricuspid Valve Tricuspid valve not well visualized, grossly normal. Trace tricuspid regurgitation. Pulmonic Valve Pulmonic valve not well visualized, grossly normal. Trace pulmonic regurgitation. Pericardium No pericardial effusion. Great Vessels Normal size aortic root and proximal ascending aorta. CONCLUSIONS 1. This was a technically difficult examination. 2. Mild aortic sclerosis is present with no valvular stenosis or insufficiency. 3. Mitral leaflet thickening is present with no valvular prolapse. Mild to moderate left atrial enlargement is present 4. There is no pericardial fluid detected. 5. The left ventricular chamber size and systolic function appear normal. 6. Minimal tricuspid and pulmonic insufficiency are present with no evidence of pulmonary hypertension. Minal Hylton M.D. (Electronically Signed) Final Date: 15 December 2017 16:34 MEASUREMENTS (Male / Female) Normal Values 2D ECHO LV Diastolic Diameter PLAX 3.9 cm 4.2 - 5.9 / 3.9 - 5.3 cm LV Systolic Diameter PLAX 2.2 cm 2.1 - 4.0 cm LV Fractional Shortening PLAX 43.6 % 25 - 46 % LV Ejection Fraction 2D Teich 75.4 % IVS Diastolic Thickness 1.0 cm LVPW Diastolic Thickness 0.9 cm LV Relative Wall Thickness 0.5 LVOT Diameter 2.0 cm Aortic Root Diameter 3.3 cm LA Systolic Diameter LX 4.2 cm 3.0 - 4.0 / 2.7 - 3.8 cm LA Volume 59.0 cm 18 - 58 / 22 - 52 cm Ascending Aorta Diameter 2.9 cm DOPPLER AV Peak Velocity 151.0 cm/s AV Peak Gradient 9.1 mmHg AV Mean Velocity 118.0 cm/s AV Mean Gradient 6.0 mmHg AV Velocity Time Integral 29.8 cm LVOT Peak Velocity 126.0 cm/s LVOT Peak Gradient 6.4 mmHg LVOT Mean Velocity 91.4 cm/s LVOT Mean Gradient 4.0 mmHg LVOT Velocity Time Integral 24.2 cm LVOT Stroke Volume 76.0 cm AV Area Cont Eq vti 2.6 cm AV Area Cont Eq pk 2.6 cm MV Peak Velocity 103.0 cm/s MV Peak Gradient 4.2 mmHg MV Mean Velocity 76.0 cm/s MV Mean Gradient 2.0 mmHg Mitral E Point Velocity 91.2 cm/s Mitral A Point Velocity 77.3 cm/s Mitral E to A Ratio 1.2 MV PHT Velocity 89.7 cm/s MV Deceleration [place] 375.0 cm/s MV Pressure Half Time 71.8 ms MV Area PHT 3.1 cm MV Deceleration Time 264.0 ms TV Peak Velocity 232.0 cm/s TV Peak E Velocity 62.8 cm/s TV Peak A Velocity 47.1 cm/s TV E to A Ratio 1.3 Right Atrial Pressure 5.0 mmHg PV Peak Velocity 138.0 cm/s PV Peak Gradient 7.6 mmHg PV Mean Velocity 102.0 cm/s PV Mean Gradient 5.0 mmHg PV Velocity Time Integral 23.6 cm LV E' Lateral Velocity 13.5 cm/s Mitral E to LV E' Lateral Ratio 6.8 LV E' Septal Velocity 9.9 cm/s Mitral E to LV E' Septal Ratio 9.2
== END 2017-12-15 14:45 | DRG 312 ==
LOC: ERH 20:53 → 1NO 12-14 01:02 → ERHI 12-14 01:02 → ENRESERV 12-14 09:33 → ENTRNSPT 12-14 11:17 → EDTRNSPT 12-14 11:21 → EDTRNSPTSTS 12-14 11:21 → CMPTRNSPT 12-14 11:34 → 1NO 12-14 11:37 → ENPENDDIS 12-15 13:14 → 1NO 12-15 14:45
PROVIDERS: Internal Medicine Adolescent Medicine; Physician Assistant
DX: R55 Syncope and collapse (principal); N18.4 Chronic kidney disease, stage 4 (severe); E87.2 Acidosis; G90.2 Horner's syndrome; E78.5 Hyperlipidemia, unspecified; Z86.73 Personal history of transient ischemic attack (TIA), and cerebral infarction without residual deficits; Z79.01 Long term (current) use of anticoagulants; Z79.84 Long term (current) use of oral hypoglycemic drugs; I12.9 Hypertensive chronic kidney disease with stage 1 through stage 4 chronic kidney disease, or unspecified chronic kidney disease; E11.22 Type 2 diabetes mellitus with diabetic chronic kidney disease; J45.909 Unspecified asthma, uncomplicated; E83.42 Hypomagnesemia; M53.82 Other specified dorsopathies, cervical region; D64.9 Anemia, unspecified; D72.1 Eosinophilia; E04.1 Nontoxic single thyroid nodule; E66.9 Obesity, unspecified; Z68.34 Body mass index [BMI] 34.0-34.9, adult; Z88.6 Allergy status to analgesic agent; Z98.1 Arthrodesis status; Z88.1 Allergy status to other antibiotic agents; Z79.51 Long term (current) use of inhaled steroids; E11.51 Type 2 diabetes mellitus with diabetic peripheral angiopathy without gangrene; Z87.891 Personal history of nicotine dependence
CPT/HCPCS: 1NP; 36415; 71046; 82436; 93005; 93010; 93306; 96374; Q2036